=== PATIENT | female | born 1945 | race Caucasian/White ===

== ENCOUNTER 2021-08-06 09:33 | Inpatient (IN) ==
[2021-08-07] MEDS ORDERED: ZOFRAN INJ 4 MG VIAL IVP PRN (13:51)
--- NOTE | 2021-08-07 14:28 | RAD ---
Exam:HAND, RIGHTIndication: RIGHT HAND HEMATOMA/PAINComparison: [None available]Findings: [No acute fracture or malalignment of the right hand. No localizing soft tissue swelling. Degenerative changes of the MCP and interphalangeal joints of the right hand. Wrist joint alignment and joint spaces maintained.]IMPRESSIONNo acute radiographic abnormality within right hand.Degenerative changes of the MCP and interphalangeal joints of the right hand.Electronically signed by: CECILY HERNÁNDEZ (Aug 07, 2021 14:27:20)
--- NOTE | 2021-08-07 14:30 | RAD ---
HISTORYCOUGH, SHORTNESS OF BREATHSTUDYCHEST, 1 VIEWCOMPARISONNone availableFINDINGSThe trachea is midline. Heart size is at the upper limits of normal given AP technique. Bilateral increased interstitial opacities and peribronchial thickening most severely affecting the mid and lower lung zones. Either small bilateral pleural effusions or pleural scarring. No pneumothorax. No acute osseous abnormality.IMPRESSIONBilateral increased peribronchial thickening and interstitial opacities within the mid and lower lung zones is most consistent with multifocal infiltrates/pneumonia.Small bilateral pleural effusions and/or pleural scarring.Electronically signed by: CECILY HERNÁNDEZ (Aug 07, 2021 14:29:09)
[2021-08-07 15:12] LABS: ALANINE AMINOTRANSFERASE 28 Units/L (12-78); ALBUMIN 2.6 g/dL (3.4-5.0); ALKALINE PHOSPHATASE 62 Units/L (46-116); ASPARTATE AMINO TRANSFERASE 29 Units/L (15-37); BLOOD UREA NITROGEN 18 mg/dL (7-18); CALCIUM 7.9 mg/dL (8.5-10.1); CARBON DIOXIDE 22.7 mmol/L (21-32); COR NA(FOR HYPERGLY) 111 mmol/L (136-145); CREATININE 0.86 mg/dL (0.55-1.02); TOTAL PROTEIN 6.3 g/dL (6.4-8.2); eGFR NON BLACK RACES > 60 (>60)
[2021-08-07 15:13] LABS: CHLORIDE 80 mmol/L (98-107); SODIUM 109 mmol/L (136-145)
[2021-08-07 15:14] LABS: BASOPHILS % (AUTO) 0.1 % (0.2-1.0); EOSINOPHILS % (AUTO) 0.1 % (0.9-2.9); HEMATOCRIT 26.2 % (36.0-47.0); LYMPHOCYTES # (AUTO) 0.9 X10^3/uL (1.3-2.9); MEAN CORPUSCULAR HEMOGLOBIN 26.7 pg (27.0-34.0); MEAN CORPUSCULAR HGB CONC 34.1 g/dL (33.0-35.0); MEAN CORPUSCULAR VOLUME 78.3 fL (80.0-100.0); MEAN PLATELET VOLUME 7.8 fL (7.4-11.0); MONOCYTES # (AUTO) 0.8 x10^3/uL (0.3-0.8); MONOCYTES % (AUTO) 7.2 % (0.0-13.0); NEUTROPHILS # (AUTO) 9.8 x10^3/uL (2.2-4.8); NEUTROPHILS % (AUTO) 84.6 % (42.0-75.0); RED BLOOD COUNT 3.35 X10^6/uL (3.5-5.4); RED CELL DISTRIBUTION WIDTH 16.5 % (11.6-16.5); WHITE BLOOD COUNT 11.6 X10^3/uL (3.6-10.0)
[2021-08-07] MEDS: ZITHROMAX INJ 500 MG VIAL 500 MG in NS 250 ML IV 250 ML IV SCH (15:35)
[2021-08-07] MEDS ORDERED: POTASSIUM CHL 60 MEQ/NS 0.45% 500 ML IV PRN (15:37)
[2021-08-07] MEDS ORDERED: POTASSIUM CHLORIDE LIQ 20 MEQ UDC PO PRN (15:37)
[2021-08-07] MEDS ORDERED: K-DUR TAB 20 MEQ PO PRN (15:37)
[2021-08-07] MEDS ORDERED: MICRO K EXTEN CAP 10 MEQ PO PRN (15:37)
[2021-08-07] MEDS ORDERED: POTASSIUM CHL 40 MEQ/NS 0.45% 500 ML IV PRN (15:37)
[2021-08-07] MEDS ORDERED: KLOR-CON PO PRN (15:37)
[2021-08-07] MEDS ORDERED: K-RIDER 10 MEQ/NS 100 ML 40 MEQ/400 ML BAG IV ONE (16:19)
[2021-08-07] MEDS ORDERED: NS 250 ML IV 500 ML IV ONE (16:21)
[2021-08-07] MEDS ORDERED: MAGNESIUM SULFATE IV ONE (16:21)
[2021-08-07] MEDS: K-RIDER 10 MEQ/NS 100 ML 10 MEQ/100 ML BAG IV PRN ×6 (16:42→23:40)
[2021-08-07] MEDS: MAGNESIUM SULFATE 1 GRAM/100 mL PREMIX 1 G/100 ML BAG IV PRN ×6 (16:42→23:40)
[2021-08-07 16:43] LABS: APPEARANCE,URINE CLEAR (CLEAR); BILIRUBIN,URINE NEGATIVE (NEGATIVE); BLOOD/HEMOGLOBIN,URINE NEGATIVE (NEGATIVE); COLOR,URINE YELLOW (YELLOW); GLUCOSE, URINE 2+ (NEGATIVE); KETONES,URINE NEGATIVE (NEGATIVE); NITRITES,URINE NEGATIVE (NEGATIVE); PROTEIN,URINE 3+ (NEGATIVE)
[2021-08-07 16:44] LABS: BACTERIA,URINE 2+ /HPF (NEGATIVE); GRANULAR CASTS,URINE FEW /LPF (NEGATIVE); HYALINE CASTS, URINE FEW /LPF (NEGATIVE); LEUKOCYTE ESTERASE ,URINE NEGATIVE (NEGATIVE); RBC,URINE NONE SEEN /HPF (0-3); SQUAMOUS EPITHELIAL CELL,UR RARE /HPF (NEGATIVE); UROBILINOGEN,URINE NORMAL (NORMAL)
[2021-08-07] MEDS ORDERED: LASIX IVP SCH (17:00)
[2021-08-07 17:13] LABS: CHLORIDE 77 mmol/L (98-107); SODIUM 106 mmol/L (136-145)
[2021-08-07 17:14] LABS: ALANINE AMINOTRANSFERASE 27 Units/L (12-78); ALBUMIN 2.5 g/dL (3.4-5.0); ALKALINE PHOSPHATASE 64 Units/L (46-116); ASPARTATE AMINO TRANSFERASE 29 Units/L (15-37); BLOOD UREA NITROGEN 20 mg/dL (7-18); CALCIUM 7.7 mg/dL (8.5-10.1); CARBON DIOXIDE 23.9 mmol/L (21-32); COR CA(FOR HYPOALB) 8.9 mg/dL (8.5-10.1); COR NA(FOR HYPERGLY) 110 mmol/L (136-145); CREATINE KINASE 138 Units/L (26-192); CREATININE 1.04 mg/dL (0.55-1.02); TOTAL PROTEIN 6.1 g/dL (6.4-8.2); eGFR NON BLACK RACES 55 (>60)
[2021-08-07 17:15] LABS: CREATINE KINASE MB 4.2 ng/mL (0-4.0)
[2021-08-07 17:16] LABS: BASOPHILS % (AUTO) 0.2 % (0.2-1.0); HEMATOCRIT 25.1 % (36.0-47.0); HEMOGLOBIN 8.5 g/dL (12.0-16.0); LYMPHOCYTES % (AUTO) 7.6 % (21.0-51.0); MEAN CORPUSCULAR HEMOGLOBIN 26.7 pg (27.0-34.0); MEAN CORPUSCULAR HGB CONC 34.1 g/dL (33.0-35.0); MEAN CORPUSCULAR VOLUME 78.4 fL (80.0-100.0); MEAN PLATELET VOLUME 7.5 fL (7.4-11.0); MONOCYTES # (AUTO) 0.8 x10^3/uL (0.3-0.8); MONOCYTES % (AUTO) 5.9 % (0.0-13.0); NEUTROPHILS # (AUTO) 11.8 x10^3/uL (2.2-4.8); NEUTROPHILS % (AUTO) 86.3 % (42.0-75.0); RED CELL DISTRIBUTION WIDTH 16.4 % (11.6-16.5); WHITE BLOOD COUNT 13.6 X10^3/uL (3.6-10.0)
[2021-08-07 17:33] LABS: BASOPHILS % (AUTO) 0.1 % (0.2-1.0); EOSINOPHILS # (AUTO) 0.1 x10^3/uL (0.0-0.2); EOSINOPHILS % (AUTO) 0.5 % (0.9-2.9); HEMATOCRIT 26.6 % (36.0-47.0); HEMOGLOBIN 9.2 g/dL (12.0-16.0); LYMPHOCYTES # (AUTO) 1.3 X10^3/uL (1.3-2.9); LYMPHOCYTES % (AUTO) 12.7 % (21.0-51.0); MEAN CORPUSCULAR HEMOGLOBIN 26.6 pg (27.0-34.0); MEAN CORPUSCULAR HGB CONC 34.5 g/dL (33.0-35.0); MEAN CORPUSCULAR VOLUME 77.1 fL (80.0-100.0); MEAN PLATELET VOLUME 7.2 fL (7.4-11.0); MONOCYTES % (AUTO) 9.8 % (0.0-13.0); NEUTROPHILS # (AUTO) 7.8 x10^3/uL (2.2-4.8); NEUTROPHILS % (AUTO) 76.9 % (42.0-75.0); RED BLOOD COUNT 3.44 X10^6/uL (3.5-5.4); RED CELL DISTRIBUTION WIDTH 16.1 % (11.6-16.5); WHITE BLOOD COUNT 10.1 X10^3/uL (3.6-10.0)
[2021-08-07 17:48] LABS: ALANINE AMINOTRANSFERASE 24 Units/L (12-78); ALBUMIN 2.4 g/dL (3.4-5.0); ALKALINE PHOSPHATASE 59 Units/L (46-116); ASPARTATE AMINO TRANSFERASE 27 Units/L (15-37); BLOOD UREA NITROGEN 16 mg/dL (7-18); CHLORIDE 81 mmol/L (98-107); COR CA(FOR HYPOALB) 9.3 mg/dL (8.5-10.1); CREATININE 0.91 mg/dL (0.55-1.02); eGFR NON BLACK RACES > 60 (>60)
[2021-08-07 17:50] LABS: SODIUM 115 mmol/L (136-145)
[2021-08-07 19:12] LABS: ABG ALLEN TEST POS; ABG BASE EXCESS 0.3 mmol/L (-2.0-2.0); ABG HCO3 23.1 mmol/L (22-26)
[2021-08-07] MEDS ORDERED: MAGNESIUM SULFATE 1 GRAM/100 mL PREMIX 2 G/200 ML BAG IV ONE (20:32)
[2021-08-07] MEDS ORDERED: K-RIDER 10 MEQ/NS 100 ML 10 MEQ/100 ML BAG IV ONE (20:32)
--- NOTE | 2021-08-07 20:32 | DR.H&P ---
H&P History & Physical for Day of: H&P Date: 08/07/21 Chief Complaint Chief Complaint: Nausea and tested positive for Covid yesterday. Allergies Allergies Allergy/AdvReac Type Severity Reaction Status Date / Time No Known Drug Allergies Allergy Verified 08/08/21 02:42 History of Present Illness History of Present Illness: This is a 76-year-old white female who presented to the ED with complaints of nausea and testing positive for Covid over the last day or two. She is profoundly hyponatremic in the ED and is mildly confused. Her corrected Sodium is 110. She has been placed on fluid restriction. She is also hypoxic with a O2 sat of 88% on RA. She has been on Doxycycline and steroids and Symbicort as an outpatient. Past Medical History Past Medical History: COPD, Diabetes and Hypertension Past Surgical History Surgical History: Unknown Family History Family Medical History: Hypertension Social History Does patient currently use any type of tobacco product: No Have you used tobacco products in the last 12 months: No Type of Tobacco Use: None Does any household member use tobacco: No Alcohol Use: None Drug Use: None Labs Result Diagrams: 08/11/21 05:00 08/11/21 05:00 Labs: Laboratory WBC 10.1 X10^3/uL (3.6-10.0) H 08/07/21 17: RBC 3.44 X10^6/uL (3.5-5.4) L 08/07/21 17:24 Hgb 9.2 g/dL (12.0-16.0) L 08/07/21 17:24 Hct 26.6 % (36.0-47.0) L 08/07/21 17:24 MCV 77.1 fL (80.0-100.0) L 08/07/21 17:24 MCH 26.6 pg (27.0-34.0) L 08/07/21 17:24 MCHC 34.5 g/dL (33.0-35.0) 08/07/21 17:24 RDW 16.1 % (11.6-16.5) 08/07/21 17:24 Plt Count 276 X10^3/uL (150.0-450.0) 08/07/21 17:24 MPV 7.2 fL (7.4-11.0) L 08/07/21 17:24 Neut % (Auto) 76.9 % (42.0-75.0) H 08/07/21 17:24 Lymph % (Auto) 12.7 % (21.0-51.0) L 08/07/21 17:24 [place] % (Auto) 9.8 % (0.0-13.0) 08/07/21 17:24 Eos % (Auto) 0.5 % (0.9-2.9) L 08/07/21 17:24 Baso % (Auto) 0.1 % (0.2-1.0) L 08/07/21 17:24 Neut # (Auto) 7.8 x10^3/uL (2.2-4.8) H 08/07/21 17:24 Lymph # (Auto) 1.3 X10^3/uL (1.3-2.9) 08/07/21 17:24 [place] # (Auto) 1.0 x10^3/uL (0.3-0.8) H 08/07/21 17:24 Eos # (Auto) 0.1 x10^3/uL (0.0-0.2) 08/07/21 17:24 Baso # (Auto) 0.0 X10^3/uL (0.0-0.1) 08/07/21 17:24 Absolute Nucleated RBC 0.0 /100WBC 08/07/21 17:24 Sample Site Rr 08/06/21 23:02 ABG pH 7.480 (7.35-7.45) H 08/06/21 23:02 ABG pCO2 31.0 mmHg (35.0-45.0) L 08/06/21 23:02 ABG pO2 111.0 mmHg (80.0-100.0) H 08/06/21 23:02 ABG HCO3 23.1 mmol/L (22-26) 08/06/21 23:02 ABG O2 Saturation 99.0 % (90-100) 08/06/21 23:02 ABG Base Excess 0.3 mmol/L (-2.0-2.0) 08/06/21 23:02 Alcides Test Pos 08/06/21 23:02 A-a Gradient 0.0 mmHg 08/06/21 23:02 FiO2 21 08/06/21 23:02 Blood Gas Comments Lee well kh 08/06/21 23:02 Sodium 115 mmol/L (136-145) L* 08/07/21 17:24 Corrected Sodium TNP 08/07/21 17:24 Potassium 2.5 mmol/L (3.5-5.1) L* 08/07/21 17:24 Chloride 81 mmol/L (98-107) L 08/07/21 17:24 Carbon Dioxide 31.0 mmol/L (21-32) 08/07/21 17:24 BUN 16 mg/dL (7-18) 08/07/21 17:24 Creatinine 0.91 mg/dL (0.55-1.02) 08/07/21 17:24 Est GFR (MDRD) Af Amer > 60 (>60) 08/07/21 17:24 Est GFR (MDRD) Non-Af > 60 (>60) 08/07/21 17:24 Glucose 95 mg/dL (65-99) 08/07/21 17:24 Calcium 8.0 mg/dL (8.5-10.1) L 08/07/21 17:24 Corrected Calcium 9.3 mg/dL (8.5-10.1) 08/07/21 17:24 Magnesium 0.9 mg/dL (1.7-2.9) L 08/07/21 14:55 Total Bilirubin 0.30 mg/dL (0.2-1.0) 08/07/21 17:24 AST 27 Units/L (15-37) 08/07/21 17:24 ALT 24 Units/L (12-78) 08/07/21 17:24 Alkaline Phosphatase 59 Units/L (46-116) 08/07/21 17:24 Creatine Kinase 138 Units/L (26-192) 08/06/21 22:32 CK-MB (CK-2) 4.2 ng/mL (0-4.0) H* 08/06/21 22:32 CK/CKMB % Calc 3.0 % (<4) 08/06/21 22:32 Troponin I High Sens 9.7 ng/L (4.0-60.0) 08/06/21 22:32 Total Protein 6.0 g/dL (6.4-8.2) L 08/07/21 17:24 Albumin 2.4 g/dL (3.4-5.0) L 08/07/21 17:24 Globulin 3.6 g/dL (2.5-4.5) 08/07/21 17:24 Albumin/Globulin Ratio 0.7 Ratio (1.1-2.1) L 08/07/21 17:24 Specimen Type Catherized urine 08/07/21 04:00 Urine Color Yellow (YELLOW) 08/07/21 04:00 Urine Appearance Clear (CLEAR) 08/07/21 04:00 Urine pH 5.0 (5.0 - 8.0) 08/07/21 04:00 Ur Specific [place] 1.015 (1.000-1.030) 08/07/21 04:00 Urine Protein 3+ (NEGATIVE) 08/07/21 04:00 Urine Glucose (UA) 2+ (NEGATIVE) 08/07/21 04:00 Urine Ketones Negative (NEGATIVE) 08/07/21 04:00 Urine Occult Blood Negative (NEGATIVE) 08/07/21 04:00 Urine Nitrite Negative (NEGATIVE) 08/07/21 04:00 Urine Bilirubin Negative (NEGATIVE) 08/07/21 04:00 Urine Urobilinogen Normal (NORMAL) 08/07/21 04:00 Ur Leukocyte Esterase Negative (NEGATIVE) 08/07/21 04:00 Urine RBC None seen /HPF (0-3) 08/07/21 04:00 Urine WBC 0-2 /HPF (0-5) 08/07/21 04:00 Ur Squamous Epith Cells Rare /HPF (NEGATIVE) 08/07/21 04:00 Urine Bacteria 2+ /HPF (NEGATIVE) 08/07/21 04:00 Hyaline Casts Few /LPF (NEGATIVE) 08/07/21 04:00 Granular Casts Few /LPF (NEGATIVE) 08/07/21 04:00 Ur Culture Indicated? Yes/culture set up 08/07/21 04:00 SARS-CoV-2 (PCR) Positive (NEGATIVE) A 08/07/21 03:27 Influenza Type A (PCR) Negative (NEGATIVE) 08/07/21 03:27 Influenza Type B (PCR) Negative (NEGATIVE) 08/07/21 03:27 RSV (PCR) Negative (NEGATIVE) 08/07/21 03:27 Review of Systems Constitutional: Weakness and Malaise Eyes: No Symptoms Reported ENT: No Symptoms Reported Respiratory: Cough and Shortness of Breath Cardiovascular: No Symptoms Reported Genitourinary: Frequency Musculoskeletal: Other (Right hand 3rd digit with edema and bruising.) Skin: No Symptoms Reported Neurological: Weakness and Confusion Physical Exam Vital Signs: Temperature 97.7 F Pulse Rate [Apical] 84 Respiratory Rate 18 Blood Pressure [Right Arm] 168/62 O2 Sat by Pulse Oximetry 97 Oriented: Not Oriented Eyes: Normal Ear: Normal Nose: Normal Throat: Normal Respiratory: Diminished Throughout and Rhonchi Throughout Cardiovascular: Normal : Normal Auscultation: Bowel Sounds: Normal Palpation: Normal Tenderness: Normal Skin: Normal Musculoskeletal: Instability Psychiatric: Anxiety Mood Description: Anxious Affect: Quiet Speech Pattern: Unclear Assessment/Plan (1) COVID-19: Status: Acute Plan: TRENT Reddy's CXR in am. (2) Hyponatremia: Status: Acute Plan: Restrict fluids. (3) COPD (chronic obstructive pulmonary disease): Status: Acute Plan: Continue Symbicort abx. (4) Confusion: Status: Acute Plan: I suspect her confusion will resolve with the correction of her Na level. (5) HTN (hypertension): Status: Acute Plan: Monitor BP (6) DM2 (diabetes mellitus, type 2): Status: Acute Plan: Monitor BS. (7) Microcytic anemia: Status: Acute (8) Pneumonia due to COVID-19 virus: Status: Acute Plan: Covid protocol. Review H&P Reviewed: Yes Patient was examined?: Yes
[2021-08-07] MEDS: BROVANA IN SCH (21:00)
[2021-08-07] MEDS ORDERED: COREG TAB 25 MG ONE (21:00)
[2021-08-07] MEDS: PULMICORT NEB TX 0.5 MG NEB SCH (21:00)
[2021-08-07] MEDS ORDERED: BROVANA ONE (21:28)
[2021-08-07] MEDS ORDERED: PULMICORT NEB TX 0.5 MG NEB ONE (21:29)
[2021-08-07] MEDS ORDERED: MAGNESIUM SULFATE 1 GRAM/100 mL PREMIX 1 G/100 ML BAG IV ONE (22:43)
[2021-08-08 05:47] LABS: BASOPHILS % (AUTO) 0.1 % (0.2-1.0); EOSINOPHILS # (AUTO) 0.1 x10^3/uL (0.0-0.2); EOSINOPHILS % (AUTO) 1.7 % (0.9-2.9); HEMATOCRIT 24.9 % (36.0-47.0); HEMOGLOBIN 8.8 g/dL (12.0-16.0); LYMPHOCYTES # (AUTO) 1.5 X10^3/uL (1.3-2.9); LYMPHOCYTES % (AUTO) 17.5 % (21.0-51.0); MEAN CORPUSCULAR HEMOGLOBIN 27.1 pg (27.0-34.0); MEAN CORPUSCULAR HGB CONC 35.5 g/dL (33.0-35.0); MEAN CORPUSCULAR VOLUME 76.4 fL (80.0-100.0); MEAN PLATELET VOLUME 7.9 fL (7.4-11.0); MONOCYTES # (AUTO) 0.9 x10^3/uL (0.3-0.8); MONOCYTES % (AUTO) 11.3 % (0.0-13.0); NEUTROPHILS # (AUTO) 5.8 x10^3/uL (2.2-4.8); NEUTROPHILS % (AUTO) 69.4 % (42.0-75.0); RED BLOOD COUNT 3.26 X10^6/uL (3.5-5.4); RED CELL DISTRIBUTION WIDTH 16.3 % (11.6-16.5); WHITE BLOOD COUNT 8.3 X10^3/uL (3.6-10.0)
[2021-08-08 06:06] LABS: ALANINE AMINOTRANSFERASE 24 Units/L (12-78); ALBUMIN 2.2 g/dL (3.4-5.0); ALKALINE PHOSPHATASE 55 Units/L (46-116); ASPARTATE AMINO TRANSFERASE 28 Units/L (15-37); BLOOD UREA NITROGEN 12 mg/dL (7-18); CALCIUM 7.8 mg/dL (8.5-10.1); CARBON DIOXIDE 29.9 mmol/L (21-32); CHLORIDE 81 mmol/L (98-107); COR CA(FOR HYPOALB) 9.2 mg/dL (8.5-10.1); CREATININE 0.75 mg/dL (0.55-1.02); MAGNESIUM 2.5 mg/dL (1.7-2.9); TOTAL PROTEIN 5.6 g/dL (6.4-8.2); eGFR NON BLACK RACES > 60 (>60)
[2021-08-08 06:17] LABS: SODIUM 114 mmol/L (136-145)
[2021-08-08] MEDS ORDERED: ZOFRAN INJ 4 MG VIAL ONE (08:03)
[2021-08-08] MEDS ORDERED: BROVANA ONE (08:40)
[2021-08-08] MEDS ORDERED: PULMICORT NEB TX 0.5 MG NEB ONE (08:40)
[2021-08-08] MEDS: BROVANA IN SCH ×2 (10:00→19:30)
[2021-08-08] MEDS: PULMICORT NEB TX 0.5 MG NEB SCH ×2 (10:00→19:30)
[2021-08-08] MEDS ORDERED: K-DUR TAB 20 MEQ PO ONE (11:24)
[2021-08-08] MEDS ORDERED: NS 250 ML IV 250 ML IV ONE (11:24)
[2021-08-08] MEDS ORDERED: ZITHROMAX INJ 500 MG VIAL IV ONE (11:24)
[2021-08-08] MEDS: ZITHROMAX INJ 500 MG VIAL 500 MG in NS 250 ML IV 250 ML IV SCH (11:38)
[2021-08-08] MEDS: COREG TAB 25 MG PO SCH ×2 (11:39→20:58)
[2021-08-08] MEDS: NORVASC TAB 10 MG PO SCH (11:40)
[2021-08-08] MEDS: NEURONTIN CAP 100 MG PO SCH ×3 (11:40→21:00)
[2021-08-08] MEDS ORDERED: ZESTRIL TAB 20 MG ONE (11:44)
[2021-08-08] MEDS: ZESTRIL TAB 20 MG PO SCH (11:45)
[2021-08-08] MEDS ORDERED: NEURONTIN CAP 100 MG ONE (20:41)
[2021-08-09 05:14] LABS: BASOPHILS % (AUTO) 0.3 % (0.2-1.0); EOSINOPHILS # (AUTO) 0.2 x10^3/uL (0.0-0.2); EOSINOPHILS % (AUTO) 2.7 % (0.9-2.9); HEMATOCRIT 26.4 % (36.0-47.0); HEMOGLOBIN 9.2 g/dL (12.0-16.0); LYMPHOCYTES # (AUTO) 1.3 X10^3/uL (1.3-2.9); LYMPHOCYTES % (AUTO) 17.2 % (21.0-51.0); MEAN CORPUSCULAR HEMOGLOBIN 27.2 pg (27.0-34.0); MEAN CORPUSCULAR HGB CONC 34.8 g/dL (33.0-35.0); MEAN CORPUSCULAR VOLUME 78.2 fL (80.0-100.0); MEAN PLATELET VOLUME 7.7 fL (7.4-11.0); MONOCYTES # (AUTO) 0.8 x10^3/uL (0.3-0.8); MONOCYTES % (AUTO) 11.1 % (0.0-13.0); NEUTROPHILS # (AUTO) 5.1 x10^3/uL (2.2-4.8); NEUTROPHILS % (AUTO) 68.7 % (42.0-75.0); RED BLOOD COUNT 3.37 X10^6/uL (3.5-5.4); RED CELL DISTRIBUTION WIDTH 16.5 % (11.6-16.5); WHITE BLOOD COUNT 7.4 X10^3/uL (3.6-10.0)
[2021-08-09] MEDS ORDERED: NEURONTIN CAP 100 MG ONE ×2 (05:18→14:02)
[2021-08-09 05:20] LABS: BLOOD UREA NITROGEN 7 mg/dL (7-18); CALCIUM 8.5 mg/dL (8.5-10.1); CARBON DIOXIDE 32.3 mmol/L (21-32); CHLORIDE 90 mmol/L (98-107); COR NA(FOR HYPERGLY) 126 mmol/L (136-145); CREATININE 0.77 mg/dL (0.55-1.02); SODIUM 126 mmol/L (136-145); eGFR NON BLACK RACES > 60 (>60)
[2021-08-09] MEDS: NEURONTIN CAP 100 MG PO SCH ×3 (05:20→21:03)
[2021-08-09 05:34] LABS: ALANINE AMINOTRANSFERASE 23 Units/L (12-78); ALBUMIN 2.3 g/dL (3.4-5.0); ALKALINE PHOSPHATASE 60 Units/L (46-116); ASPARTATE AMINO TRANSFERASE 25 Units/L (15-37); COR CA(FOR HYPOALB) 9.9 mg/dL (8.5-10.1); TOTAL PROTEIN 5.8 g/dL (6.4-8.2)
[2021-08-09] MEDS: BROVANA IN SCH ×2 (08:39→22:59)
[2021-08-09] MEDS: PULMICORT NEB TX 0.5 MG NEB SCH ×2 (08:39→22:59)
[2021-08-09] MEDS ORDERED: ZITHROMAX INJ 500 MG VIAL IV ONE (10:26)
[2021-08-09] MEDS ORDERED: NS 250 ML IV 250 ML IV ONE (10:26)
[2021-08-09] MEDS ORDERED: HYDROCHLOROTHIAZIDE 25 MG TAB ONE (10:26)
[2021-08-09] MEDS: COREG TAB 25 MG PO SCH ×2 (12:21→20:56)
[2021-08-09] MEDS: HYDROCHLOROTHIAZIDE 25 MG TAB PO SCH (12:21)
[2021-08-09] MEDS: NORVASC TAB 10 MG PO SCH (12:21)
[2021-08-09] MEDS ORDERED: LOVENOX INJ 30 MG SYR SC ONE (12:23)
[2021-08-09] MEDS: LOVENOX INJ 30 MG SYR SC SCH ×2 (12:24→20:56)
[2021-08-09] MEDS: ZESTRIL TAB 20 MG PO SCH (12:25)
[2021-08-09] MEDS: ZITHROMAX INJ 500 MG VIAL 500 MG in NS 250 ML IV 250 ML IV SCH (12:25)
[2021-08-09] MEDS ORDERED: NovoLIN R (or HumuLIN R) SUBCUT PRN (21:02)
[2021-08-10 05:38] LABS: BASOPHILS % (AUTO) 0.2 % (0.2-1.0); EOSINOPHILS # (AUTO) 0.3 x10^3/uL (0.0-0.2); EOSINOPHILS % (AUTO) 3.6 % (0.9-2.9); HEMATOCRIT 25.9 % (36.0-47.0); HEMOGLOBIN 8.9 g/dL (12.0-16.0); LYMPHOCYTES # (AUTO) 1.5 X10^3/uL (1.3-2.9); LYMPHOCYTES % (AUTO) 17.2 % (21.0-51.0); MEAN CORPUSCULAR HEMOGLOBIN 27.1 pg (27.0-34.0); MEAN CORPUSCULAR HGB CONC 34.4 g/dL (33.0-35.0); MEAN CORPUSCULAR VOLUME 78.8 fL (80.0-100.0); MEAN PLATELET VOLUME 7.5 fL (7.4-11.0); MONOCYTES % (AUTO) 11.1 % (0.0-13.0); NEUTROPHILS # (AUTO) 6.1 x10^3/uL (2.2-4.8); NEUTROPHILS % (AUTO) 67.9 % (42.0-75.0); RED BLOOD COUNT 3.28 X10^6/uL (3.5-5.4); RED CELL DISTRIBUTION WIDTH 16.4 % (11.6-16.5)
[2021-08-10 05:41] LABS: BLOOD UREA NITROGEN 7 mg/dL (7-18); CALCIUM 8.7 mg/dL (8.5-10.1); CARBON DIOXIDE 29.4 mmol/L (21-32); CHLORIDE 93 mmol/L (98-107); COR NA(FOR HYPERGLY) 130 mmol/L (136-145); CREATININE 0.83 mg/dL (0.55-1.02); SODIUM 129 mmol/L (136-145); eGFR NON BLACK RACES > 60 (>60)
[2021-08-10] MEDS: NEURONTIN CAP 100 MG PO SCH ×3 (05:45→21:00)
[2021-08-10 06:11] LABS: ALANINE AMINOTRANSFERASE 23 Units/L (12-78); ALBUMIN 2.4 g/dL (3.4-5.0); ALKALINE PHOSPHATASE 61 Units/L (46-116); ASPARTATE AMINO TRANSFERASE 21 Units/L (15-37)
[2021-08-10] MEDS ORDERED: ZESTRIL TAB 20 MG ONE (07:44)
[2021-08-10] MEDS: PULMICORT NEB TX 0.5 MG NEB SCH ×2 (08:40→21:00)
[2021-08-10] MEDS: BROVANA IN SCH ×2 (08:40→21:00)
[2021-08-10] MEDS: HYDROCHLOROTHIAZIDE 25 MG TAB PO SCH (08:46)
[2021-08-10] MEDS: ZITHROMAX INJ 500 MG VIAL 500 MG in NS 250 ML IV 250 ML IV SCH (08:46)
[2021-08-10] MEDS: COREG TAB 25 MG PO SCH ×2 (08:46→20:42)
[2021-08-10] MEDS: LOVENOX INJ 30 MG SYR SC SCH ×2 (08:47→20:42)
[2021-08-10] MEDS: NORVASC TAB 10 MG PO SCH (08:47)
[2021-08-10] MEDS: ZESTRIL TAB 20 MG PO SCH (08:47)
[2021-08-10] MEDS ORDERED: SNACK - Diabetic Appropriate PO SCH (20:00)
[2021-08-11] MEDS: NEURONTIN CAP 100 MG PO SCH (05:41)
[2021-08-11 06:24] LABS: BASOPHILS # (AUTO) 0.1 X10^3/uL (0.0-0.1); BASOPHILS % (AUTO) 0.6 % (0.2-1.0); EOSINOPHILS # (AUTO) 0.5 x10^3/uL (0.0-0.2); EOSINOPHILS % (AUTO) 5.3 % (0.9-2.9); HEMATOCRIT 25.3 % (36.0-47.0); HEMOGLOBIN 8.8 g/dL (12.0-16.0); LYMPHOCYTES # (AUTO) 1.4 X10^3/uL (1.3-2.9); LYMPHOCYTES % (AUTO) 15.3 % (21.0-51.0); MEAN CORPUSCULAR HEMOGLOBIN 27.6 pg (27.0-34.0); MEAN CORPUSCULAR HGB CONC 34.6 g/dL (33.0-35.0); MEAN CORPUSCULAR VOLUME 79.8 fL (80.0-100.0); MEAN PLATELET VOLUME 7.7 fL (7.4-11.0); MONOCYTES # (AUTO) 0.9 x10^3/uL (0.3-0.8); MONOCYTES % (AUTO) 10.5 % (0.0-13.0); NEUTROPHILS # (AUTO) 6.1 x10^3/uL (2.2-4.8); NEUTROPHILS % (AUTO) 68.3 % (42.0-75.0); RED BLOOD COUNT 3.18 X10^6/uL (3.5-5.4); RED CELL DISTRIBUTION WIDTH 16.1 % (11.6-16.5)
[2021-08-11 06:55] LABS: ALANINE AMINOTRANSFERASE 22 Units/L (12-78); ALBUMIN 2.2 g/dL (3.4-5.0); ALKALINE PHOSPHATASE 56 Units/L (46-116); ASPARTATE AMINO TRANSFERASE 19 Units/L (15-37); BLOOD UREA NITROGEN 5 mg/dL (7-18); CALCIUM 8.4 mg/dL (8.5-10.1); CARBON DIOXIDE 27.6 mmol/L (21-32); CHLORIDE 94 mmol/L (98-107); COR CA(FOR HYPOALB) 9.8 mg/dL (8.5-10.1); COR NA(FOR HYPERGLY) 132 mmol/L (136-145); CREATININE 0.76 mg/dL (0.55-1.02); SODIUM 130 mmol/L (136-145); TOTAL PROTEIN 5.9 g/dL (6.4-8.2); eGFR NON BLACK RACES > 60 (>60)
[2021-08-11] MEDS ORDERED: ZESTRIL TAB 20 MG ONE (08:07)
[2021-08-11] MEDS: COREG TAB 25 MG PO SCH (08:40)
[2021-08-11] MEDS: HYDROCHLOROTHIAZIDE 25 MG TAB PO SCH (08:40)
[2021-08-11] MEDS: ZESTRIL TAB 20 MG PO SCH (08:41)
[2021-08-11] MEDS: LOVENOX INJ 30 MG SYR SC SCH (08:41)
[2021-08-11] MEDS: NORVASC TAB 10 MG PO SCH (08:41)
[2021-08-11] MEDS: PULMICORT NEB TX 0.5 MG NEB SCH (08:55)
[2021-08-11] MEDS: BROVANA IN SCH (08:55)
[2021-08-11] MEDS ORDERED: ZITHROMAX TAB 250 MG PO ONE ×2 (11:03→11:22)
[2021-08-11 12:47] VITALS: BP 171/72
--- NOTE | 2021-08-29 16:07 | PCM.PROG ---
Progress Note Progress Note for Day of Date of Exam: 08/08/21 Subjective Subjective: Feels a little better. Na is up to 114. Patient's has been giving her lots of water to drink. I discussed with him not to do that and explained that's the reason her Sodium level is so low. He says he understands. O2 sats are in the upper 90's now on 2 L NC. Hb is down to Past Medical Family Social History Past Med/Fam/Surg Hx: No changes since H&P Allergies: Allergies No Known Drug Allergies Allergy (Verified 08/08/21 02:42) Review of Systems ROS: No change since H&P Vital Signs and I&O's Vital Signs: Temperature 99.5 F Pulse Rate [Apical] 67 Pulse Rate 82 Respiratory Rate 20 Blood Pressure [Right Arm] 126/53 Blood Pressure 171/72 O2 Sat by Pulse Oximetry 100 Physical Exam Oriented: Not Oriented Eyes: Normal Ear: Normal Nose: Normal Throat: Normal Cardiovascular: Normal : Normal Auscultation: Bowel Sounds: Normal Tenderness: Normal Skin: Normal Musculoskeletal: Instability Psychiatric: Anxiety Mood Description: Anxious Affect: Quiet Speech Pattern: Clear and Appropriate Laboratory and Diagnostics Result Diagrams: 08/11/21 05:00 08/11/21 05:00 Labs: 08/07/21 04:00 Urine,[place] Urine Culture - Final Laboratory WBC 9.0 X10^3/uL (3.6-10.0) 08/11/21 05:00 RBC 3.18 X10^6/uL (3.5-5.4) L 08/11/21 05:00 Hgb 8.8 g/dL (12.0-16.0) L 08/11/21 05:00 Hct 25.3 % (36.0-47.0) L 08/11/21 05:00 MCV 79.8 fL (80.0-100.0) L 08/11/21 05:00 MCH 27.6 pg (27.0-34.0) 08/11/21 05:00 MCHC 34.6 g/dL (33.0-35.0) 08/11/21 05:00 RDW 16.1 % (11.6-16.5) 08/11/21 05:00 Plt Count 296 X10^3/uL (150.0-450.0) 08/11/21 05:00 MPV 7.7 fL (7.4-11.0) 08/11/21 05:00 Neut % (Auto) 68.3 % (42.0-75.0) 08/11/21 05:00 Lymph % (Auto) 15.3 % (21.0-51.0) L 08/11/21 05:00 [place] % (Auto) 10.5 % (0.0-13.0) 08/11/21 05:00 Eos % (Auto) 5.3 % (0.9-2.9) H 08/11/21 05:00 Baso % (Auto) 0.6 % (0.2-1.0) 08/11/21 05:00 Neut # (Auto) 6.1 x10^3/uL (2.2-4.8) H 08/11/21 05:00 Lymph # (Auto) 1.4 X10^3/uL (1.3-2.9) 08/11/21 05:00 [place] # (Auto) 0.9 x10^3/uL (0.3-0.8) H 08/11/21 05:00 Eos # (Auto) 0.5 x10^3/uL (0.0-0.2) H 08/11/21 05:00 Baso # (Auto) 0.1 X10^3/uL (0.0-0.1) 08/11/21 05:00 Absolute Nucleated RBC 0.0 /100WBC 08/11/21 05:00 Sample Site Rr 08/06/21 23:02 ABG pH 7.480 (7.35-7.45) H 08/06/21 23:02 ABG pCO2 31.0 mmHg (35.0-45.0) L 08/06/21 23:02 ABG pO2 111.0 mmHg (80.0-100.0) H 08/06/21 23:02 ABG HCO3 23.1 mmol/L (22-26) 08/06/21 23:02 ABG O2 Saturation 99.0 % (90-100) 08/06/21 23:02 ABG Base Excess 0.3 mmol/L (-2.0-2.0) 08/06/21 23:02 Alcides Test Pos 08/06/21 23:02 A-a Gradient 0.0 mmHg 08/06/21 23:02 FiO2 21 08/06/21 23:02 Blood Gas Comments Lee well kh 08/06/21 23:02 Sodium 130 mmol/L (136-145) L 08/11/21 05:00 Corrected Sodium 132 mmol/L (136-145) L 08/11/21 05:00 Potassium 3.5 mmol/L (3.5-5.1) 08/11/21 05:00 Chloride 94 mmol/L (98-107) L 08/11/21 05:00 Carbon Dioxide 27.6 mmol/L (21-32) 08/11/21 05:00 BUN 5 mg/dL (7-18) L 08/11/21 05:00 Creatinine 0.76 mg/dL (0.55-1.02) 08/11/21 05:00 Est GFR (MDRD) Af Amer > 60 (>60) 08/11/21 05:00 Est GFR (MDRD) Non-Af > 60 (>60) 08/11/21 05:00 Glucose 176 mg/dL (65-99) H 08/11/21 05:00 POC Glucose (mg/dL) 299 mg/dL (65-99) H 08/11/21 11:58 Calcium 8.4 mg/dL (8.5-10.1) L 08/11/21 05:00 Corrected Calcium 9.8 mg/dL (8.5-10.1) 08/11/21 05:00 Magnesium 2.5 mg/dL (1.7-2.9) 08/08/21 04:09 Total Bilirubin 0.40 mg/dL (0.2-1.0) 08/11/21 05:00 AST 19 Units/L (15-37) 08/11/21 05:00 ALT 22 Units/L (12-78) 08/11/21 05:00 Alkaline Phosphatase 56 Units/L (46-116) 08/11/21 05:00 Creatine Kinase 138 Units/L (26-192) 08/06/21 22:32 CK-MB (CK-2) 4.2 ng/mL (0-4.0) H* 08/06/21 22:32 CK/CKMB % Calc 3.0 % (<4) 08/06/21 22: Troponin I High Sens 9.7 ng/L (4.0-60.0) 08/06/21 22:32 Total Protein 5.9 g/dL (6.4-8.2) L 08/11/21 05:00 Albumin 2.2 g/dL (3.4-5.0) L 08/11/21 05:00 Globulin 3.7 g/dL (2.5-4.5) 08/11/21 05:00 Albumin/Globulin Ratio 0.6 Ratio (1.1-2.1) L 08/11/21 05:00 Specimen Type Catherized urine 08/07/21 04:00 Urine Color Yellow (YELLOW) 08/07/21 04:00 Urine Appearance Clear (CLEAR) 08/07/21 04:00 Urine pH 5.0 (5.0 - 8.0) 08/07/21 04:00 Ur Specific [place] 1.015 (1.000-1.030) 08/07/21 04:00 Urine Protein 3+ (NEGATIVE) 08/07/21 04:00 Urine Glucose (UA) 2+ (NEGATIVE) 08/07/21 04:00 Urine Ketones Negative (NEGATIVE) 08/07/21 04:00 Urine Occult Blood Negative (NEGATIVE) 08/07/21 04:00 Urine Nitrite Negative (NEGATIVE) 08/07/21 04:00 Urine Bilirubin Negative (NEGATIVE) 08/07/21 04:00 Urine Urobilinogen Normal (NORMAL) 08/07/21 04:00 Ur Leukocyte Esterase Negative (NEGATIVE) 08/07/21 04:00 Urine RBC None seen /HPF (0-3) 08/07/21 04:00 Urine WBC 0-2 /HPF (0-5) 08/07/21 04:00 Ur Squamous Epith Cells Rare /HPF (NEGATIVE) 08/07/21 04:00 Urine Bacteria 2+ /HPF (NEGATIVE) 08/07/21 04:00 Hyaline Casts Few /LPF (NEGATIVE) 08/07/21 04:00 Granular Casts Few /LPF (NEGATIVE) 08/07/21 04:00 Ur Culture Indicated? Yes/culture set up 08/07/21 04:00 SARS-CoV-2 (PCR) Positive (NEGATIVE) A 08/07/21 03:27 Influenza Type A (PCR) Negative (NEGATIVE) 08/07/21 03:27 Influenza Type B (PCR) Negative (NEGATIVE) 08/07/21 03:27 RSV (PCR) Negative (NEGATIVE) 08/07/21 03:27 Plan (1) COVID-19: Status: Acute Plan: ZithromaTRENT herrera's CXR in am. (2) Hyponatremia: Status: Acute Narrative Support Text: improved. Plan: Restrict fluids. Instructed to stop giving her water. (3) COPD (chronic obstructive pulmonary disease): Status: Acute Plan: Continue Symbicort abx. (4) Confusion: Status: Acute Narrative Support Text: Improved since yesterday. Plan: I suspect her confusion will resolve with the correction of her Na level. (5) HTN (hypertension): Status: Acute Plan: Monitor BP (6) DM2 (diabetes mellitus, type 2): Status: Acute Narrative Support Text: Stable. Plan: Monitor BS. (7) Microcytic anemia: Status: Acute Narrative Support Text: decreased Hb. Plan: Moitor daily Hb's. (8) Pneumonia due to COVID-19 virus: Status: Acute Narrative Support Text: O2 sats improved. Plan: Covid protocol. (9) Hypokalemia: Status: Acute Plan: Potassium replacement protocol.
--- NOTE | 2021-08-29 16:22 | PCM.PROG ---
Progress Note Progress Note for Day of Date of Exam: 08/09/21 Subjective Subjective: Feels a little better. Na is up to 126. O2 sats are in the upper 90's now on 2 L NC. Hb is up to 9.2. Will plan on discharging home in 1 -2 days. Past Medical Family Social History Past Med/Fam/Surg Hx: No changes since H&P Allergies: Allergies No Known Drug Allergies Allergy (Verified 08/08/21 02:42) Review of Systems ROS: No change since H&P Vital Signs and I&O's Vital Signs: Temperature 99.5 F Pulse Rate [Apical] 67 Pulse Rate 82 Respiratory Rate 20 Blood Pressure [Right Arm] 126/53 Blood Pressure 171/72 O2 Sat by Pulse Oximetry 100 Physical Exam Oriented: Not Oriented Eyes: Normal Ear: Normal Nose: Normal Throat: Normal Respiratory: Diminished and Rhonchi Cardiovascular: Normal : Normal Auscultation: Bowel Sounds: Normal Tenderness: Normal Skin: Normal Psychiatric: Normal Mood Description: Calm Affect: Normal Speech Pattern: Clear and Appropriate Laboratory and Diagnostics Result Diagrams: 08/11/21 05:00 08/11/21 05:00 Labs: 08/07/21 04:00 Urine,[place] Urine Culture - Final Laboratory WBC 9.0 X10^3/uL (3.6-10.0) 08/11/21 05:00 RBC 3.18 X10^6/uL (3.5-5.4) L 08/11/21 05:00 Hgb 8.8 g/dL (12.0-16.0) L 08/11/21 05:00 Hct 25.3 % (36.0-47.0) L 08/11/21 05:00 MCV 79.8 fL (80.0-100.0) L 08/11/21 05:00 MCH 27.6 pg (27.0-34.0) 08/11/21 05:00 MCHC 34.6 g/dL (33.0-35.0) 08/11/21 05:00 RDW 16.1 % (11.6-16.5) 08/11/21 05:00 Plt Count 296 X10^3/uL (150.0-450.0) 08/11/21 05:00 MPV 7.7 fL (7.4-11.0) 08/11/21 05:00 Neut % (Auto) 68.3 % (42.0-75.0) 08/11/21 05:00 Lymph % (Auto) 15.3 % (21.0-51.0) L 08/11/21 05:00 [place] % (Auto) 10.5 % (0.0-13.0) 08/11/21 05:00 Eos % (Auto) 5.3 % (0.9-2.9) H 08/11/21 05:00 Baso % (Auto) 0.6 % (0.2-1.0) 08/11/21 05:00 Neut # (Auto) 6.1 x10^3/uL (2.2-4.8) H 08/11/21 05:00 Lymph # (Auto) 1.4 X10^3/uL (1.3-2.9) 08/11/21 05:00 [place] # (Auto) 0.9 x10^3/uL (0.3-0.8) H 08/11/21 05:00 Eos # (Auto) 0.5 x10^3/uL (0.0-0.2) H 08/11/21 05:00 Baso # (Auto) 0.1 X10^3/uL (0.0-0.1) 08/11/21 05:00 Absolute Nucleated RBC 0.0 /100WBC 08/11/21 05:00 Sample Site Rr 08/06/21 23:02 ABG pH 7.480 (7.35-7.45) H 08/06/21 23:02 ABG pCO2 31.0 mmHg (35.0-45.0) L 08/06/21 23:02 ABG pO2 111.0 mmHg (80.0-100.0) H 08/06/21 23:02 ABG HCO3 23.1 mmol/L (22-26) 08/06/21 23:02 ABG O2 Saturation 99.0 % (90-100) 08/06/21 23:02 ABG Base Excess 0.3 mmol/L (-2.0-2.0) 08/06/21 23:02 Alcides Test Pos 08/06/21 23:02 A-a Gradient 0.0 mmHg 08/06/21 23:02 FiO2 21 08/06/21 23:02 Blood Gas Comments Lee well kh 08/06/21 23:02 Sodium 130 mmol/L (136-145) L 08/11/21 05:00 Corrected Sodium 132 mmol/L (136-145) L 08/11/21 05:00 Potassium 3.5 mmol/L (3.5-5.1) 08/11/21 05:00 Chloride 94 mmol/L (98-107) L 08/11/21 05:00 Carbon Dioxide 27.6 mmol/L (21-32) 08/11/21 05:00 BUN 5 mg/dL (7-18) L 08/11/21 05:00 Creatinine 0.76 mg/dL (0.55-1.02) 08/11/21 05:00 Est GFR (MDRD) Af Amer > 60 (>60) 08/11/21 05:00 Est GFR (MDRD) Non-Af > 60 (>60) 08/11/21 05:00 Glucose 176 mg/dL (65-99) H 08/11/21 05:00 POC Glucose (mg/dL) 299 mg/dL (65-99) H 08/11/21 11:58 Calcium 8.4 mg/dL (8.5-10.1) L 08/11/21 05:00 Corrected Calcium 9.8 mg/dL (8.5-10.1) 08/11/21 05:00 Magnesium 2.5 mg/dL (1.7-2.9) 08/08/21 04:09 Total Bilirubin 0.40 mg/dL (0.2-1.0) 08/11/21 05:00 AST 19 Units/L (15-37) 08/11/21 05:00 ALT 22 Units/L (12-78) 08/11/21 05:00 Alkaline Phosphatase 56 Units/L (46-116) 08/11/21 05:00 Creatine Kinase 138 Units/L (26-192) 08/06/21 22:32 CK-MB (CK-2) 4.2 ng/mL (0-4.0) H* 08/06/21 22:32 CK/CKMB % Calc 3.0 % (<4) 08/06/21 22:32 Troponin I High Sens 9.7 ng/L (4.0-60.0) 08/06/21 22:32 Total Protein 5.9 g/dL (6.4-8.2) L 08/11/21 05:00 Albumin 2.2 g/dL (3.4-5.0) L 08/11/21 05:00 Globulin 3.7 g/dL (2.5-4.5) 08/11/21 05:00 Albumin/Globulin Ratio 0.6 Ratio (1.1-2.1) L 08/11/21 05:00 Specimen Type Catherized urine 08/07/21 04:00 Urine Color Yellow (YELLOW) 08/07/21 04:00 Urine Appearance Clear (CLEAR) 08/07/21 04:00 Urine pH 5.0 (5.0 - 8.0) 08/07/21 04:00 Ur Specific [place] 1.015 (1.000-1.030) 08/07/21 04:00 Urine Protein 3+ (NEGATIVE) 08/07/21 04:00 Urine Glucose (UA) 2+ (NEGATIVE) 08/07/21 04:00 Urine Ketones Negative (NEGATIVE) 08/07/21 04:00 Urine Occult Blood Negative (NEGATIVE) 08/07/21 04:00 Urine Nitrite Negative (NEGATIVE) 08/07/21 04:00 Urine Bilirubin Negative (NEGATIVE) 08/07/21 04:00 Urine Urobilinogen Normal (NORMAL) 08/07/21 04:00 Ur Leukocyte Esterase Negative (NEGATIVE) 08/07/21 04:00 Urine RBC None seen /HPF (0-3) 08/07/21 04:00 Urine WBC 0-2 /HPF (0-5) 08/07/21 04:00 Ur Squamous Epith Cells Rare /HPF (NEGATIVE) 08/07/21 04:00 Urine Bacteria 2+ /HPF (NEGATIVE) 08/07/21 04:00 Hyaline Casts Few /LPF (NEGATIVE) 08/07/21 04:00 Granular Casts Few /LPF (NEGATIVE) 08/07/21 04:00 Ur Culture Indicated? Yes/culture set up 08/07/21 04:00 SARS-CoV-2 (PCR) Positive (NEGATIVE) A 08/07/21 03:27 Influenza Type A (PCR) Negative (NEGATIVE) 08/07/21 03:27 Influenza Type B (PCR) Negative (NEGATIVE) 08/07/21 03:27 RSV (PCR) Negative (NEGATIVE) 08/07/21 03:27 Plan (1) COVID-19: Status: Acute Plan: RamirothrTRENT aviles's CXR in am. (2) Hyponatremia: Status: Acute Narrative Support Text: Improving. Plan: Restrict fluids. Instructed to stop giving her water. (3) COPD (chronic obstructive pulmonary disease): Status: Acute Plan: Continue Symbicort abx. (4) Confusion: Status: Acute Narrative Support Text: Much improved since yesterday. Plan: I suspect her confusion will resolve with the correction of her Na level. (5) HTN (hypertension): Status: Acute Plan: Monitor BP (6) DM2 (diabetes mellitus, type 2): Status: Acute Plan: Monitor BS. (7) Microcytic anemia: Status: Acute Narrative Support Text: Hb is up to 9.2 this am. Plan: Moitor daily Hb's. (8) Pneumonia due to COVID-19 virus: Status: Acute Narrative Support Text: Improving since admission. Plan: Covid protocol. (9) Hypokalemia: Status: Acute Plan: Potassium replacement protocol.
--- NOTE | 2021-08-29 16:29 | PCM.PROG ---
Progress Note Progress Note for Day of Date of Exam: 08/10/21 Subjective Subjective: Feels a lot better. Na is up to 129. O2 sats are in the upper 90's now on 2 L NC. Hb is 8.9 Will plan on discharging home when sodium is nearly normalized and or confusion has completely resolved. Respiratory status is much better clinically. No reports of dyspnea. Past Medical Family Social History Past Med/Fam/Surg Hx: No changes since H&P Allergies: Allergies No Known Drug Allergies Allergy (Verified 08/08/21 02:42) Review of Systems ROS: No change since H&P Vital Signs and I&O's Vital Signs: Temperature 99.5 F Pulse Rate [Apical] 67 Pulse Rate 82 Respiratory Rate 20 Blood Pressure [Right Arm] 126/53 Blood Pressure 171/72 O2 Sat by Pulse Oximetry 100 Physical Exam Oriented: Normal Eyes: Normal Ear: Normal Nose: Normal Throat: Normal Respiratory: Rhonchi Cardiovascular: Normal : Normal Auscultation: Bowel Sounds: Normal Tenderness: Normal Skin: Normal Musculoskeletal: Instability Psychiatric: Normal Mood Description: Calm Affect: Normal Speech Pattern: Clear and Appropriate Laboratory and Diagnostics Result Diagrams: 08/11/21 05:00 08/11/21 05:00 Labs: 08/07/21 04:00 Urine,[place] Urine Culture - Final Laboratory WBC 9.0 X10^3/uL (3.6-10.0) 08/11/21 05:00 RBC 3.18 X10^6/uL (3.5-5.4) L 08/11/21 05:00 Hgb 8.8 g/dL (12.0-16.0) L 08/11/21 05:00 Hct 25.3 % (36.0-47.0) L 08/11/21 05:00 MCV 79.8 fL (80.0-100.0) L 08/11/21 05:00 MCH 27.6 pg (27.0-34.0) 08/11/21 05:00 MCHC 34.6 g/dL (33.0-35.0) 08/11/21 05:00 RDW 16.1 % (11.6-16.5) 08/11/21 05:00 Plt Count 296 X10^3/uL (150.0-450.0) 08/11/21 05:00 MPV 7.7 fL (7.4-11.0) 08/11/21 05:00 Neut % (Auto) 68.3 % (42.0-75.0) 08/11/21 05:00 Lymph % (Auto) 15.3 % (21.0-51.0) L 08/11/21 05:00 [place] % (Auto) 10.5 % (0.0-13.0) 08/11/21 05:00 Eos % (Auto) 5.3 % (0.9-2.9) H 08/11/21 05:00 Baso % (Auto) 0.6 % (0.2-1.0) 08/11/21 05:00 Neut # (Auto) 6.1 x10^3/uL (2.2-4.8) H 08/11/21 05:00 Lymph # (Auto) 1.4 X10^3/uL (1.3-2.9) 08/11/21 05:00 [place] # (Auto) 0.9 x10^3/uL (0.3-0.8) H 08/11/21 05:00 Eos # (Auto) 0.5 x10^3/uL (0.0-0.2) H 08/11/21 05:00 Baso # (Auto) 0.1 X10^3/uL (0.0-0.1) 08/11/21 05:00 Absolute Nucleated RBC 0.0 /100WBC 08/11/21 05:00 Sample Site Rr 08/06/21 23:02 ABG pH 7.480 (7.35-7.45) H 08/06/21 23:02 ABG pCO2 31.0 mmHg (35.0-45.0) L 08/06/21 23:02 ABG pO2 111.0 mmHg (80.0-100.0) H 08/06/21 23:02 ABG HCO3 23.1 mmol/L (22-26) 08/06/21 23:02 ABG O2 Saturation 99.0 % (90-100) 08/06/21 23:02 ABG Base Excess 0.3 mmol/L (-2.0-2.0) 08/06/21 23:02 Alcides Test Pos 08/06/21 23:02 A-a Gradient 0.0 mmHg 08/06/21 23:02 FiO2 21 08/06/21 23:02 Blood Gas Comments Lee well kh 08/06/21 23:02 Sodium 130 mmol/L (136-145) L 08/11/21 05:00 Corrected Sodium 132 mmol/L (136-145) L 08/11/21 05:00 Potassium 3.5 mmol/L (3.5-5.1) 08/11/21 05:00 Chloride 94 mmol/L (98-107) L 08/11/21 05:00 Carbon Dioxide 27.6 mmol/L (21-32) 08/11/21 05:00 BUN 5 mg/dL (7-18) L 08/11/21 05:00 Creatinine 0.76 mg/dL (0.55-1.02) 08/11/21 05:00 Est GFR (MDRD) Af Amer > 60 (>60) 08/11/21 05:00 Est GFR (MDRD) Non-Af > 60 (>60) 08/11/21 05:00 Glucose 176 mg/dL (65-99) H 08/11/21 05:00 POC Glucose (mg/dL) 299 mg/dL (65-99) H 08/11/21 11:58 Calcium 8.4 mg/dL (8.5-10.1) L 08/11/21 05:00 Corrected Calcium 9.8 mg/dL (8.5-10.1) 08/11/21 05:00 Magnesium 2.5 mg/dL (1.7-2.9) 08/08/21 04:09 Total Bilirubin 0.40 mg/dL (0.2-1.0) 08/11/21 05:00 AST 19 Units/L (15-37) 08/11/21 05:00 ALT 22 Units/L (12-78) 08/11/21 05:00 Alkaline Phosphatase 56 Units/L (46-116) 08/11/21 05:00 Creatine Kinase 138 Units/L (26-192) 08/06/21 22:32 CK-MB (CK-2) 4.2 ng/mL (0-4.0) H* 08/06/21 22:32 CK/CKMB % Calc 3.0 % (<4) 08/06/21 22:32 Troponin I High Sens 9.7 ng/L (4.0-60.0) 08/06/21 22:32 Total Protein 5.9 g/dL (6.4-8.2) L 08/11/21 05:00 Albumin 2.2 g/dL (3.4-5.0) L 08/11/21 05:00 Globulin 3.7 g/dL (2.5-4.5) 08/11/21 05:00 Albumin/Globulin Ratio 0.6 Ratio (1.1-2.1) L 08/11/21 05:00 Specimen Type Catherized urine 08/07/21 04:00 Urine Color Yellow (YELLOW) 08/07/21 04:00 Urine Appearance Clear (CLEAR) 08/07/21 04:00 Urine pH 5.0 (5.0 - 8.0) 08/07/21 04:00 Ur Specific [place] 1.015 (1.000-1.030) 08/07/21 04:00 Urine Protein 3+ (NEGATIVE) 08/07/21 04:00 Urine Glucose (UA) 2+ (NEGATIVE) 08/07/21 04:00 Urine Ketones Negative (NEGATIVE) 08/07/21 04:00 Urine Occult Blood Negative (NEGATIVE) 08/07/21 04:00 Urine Nitrite Negative (NEGATIVE) 08/07/21 04:00 Urine Bilirubin Negative (NEGATIVE) 08/07/21 04:00 Urine Urobilinogen Normal (NORMAL) 08/07/21 04:00 Ur Leukocyte Esterase Negative (NEGATIVE) 08/07/21 04:00 Urine RBC None seen /HPF (0-3) 08/07/21 04:00 Urine WBC 0-2 /HPF (0-5) 08/07/21 04:00 Ur Squamous Epith Cells Rare /HPF (NEGATIVE) 08/07/21 04:00 Urine Bacteria 2+ /HPF (NEGATIVE) 08/07/21 04:00 Hyaline Casts Few /LPF (NEGATIVE) 08/07/21 04:00 Granular Casts Few /LPF (NEGATIVE) 08/07/21 04:00 Ur Culture Indicated? Yes/culture set up 08/07/21 04:00 SARS-CoV-2 (PCR) Positive (NEGATIVE) A 08/07/21 03:27 Influenza Type A (PCR) Negative (NEGATIVE) 08/07/21 03:27 Influenza Type B (PCR) Negative (NEGATIVE) 08/07/21 03:27 RSV (PCR) Negative (NEGATIVE) 08/07/21 03:27 Plan (1) COVID-19: Status: Acute Plan: TRENT Reddy's CXR in am. (2) Hyponatremia: Status: Acute Narrative Support Text: Much improved overall. Plan: Restrict fluids. Instructed to stop giving her water. (3) COPD (chronic obstructive pulmonary disease): Status: Acute Plan: Continue Symbicort abx. (4) Confusion: Status: Acute Narrative Support Text: Nearly resolved. Plan: I suspect her confusion will resolve with the correction of her Na level. (5) HTN (hypertension): Status: Acute Plan: Monitor BP (6) DM2 (diabetes mellitus, type 2): Status: Acute Plan: Monitor BS. (7) Microcytic anemia: Status: Acute Narrative Support Text: Stable. Plan: Moitor daily Hb's. (8) Pneumonia due to COVID-19 virus: Status: Acute Narrative Support Text: Clinically improved. Plan: Covid protocol. (9) Hypokalemia: Status: Resolved Plan: Potassium replacement protocol.
--- NOTE | 2021-08-29 16:35 | PCM.DCPLAN ---
DISCHARGE SUMMARY Admission Date Date of Admission: 08/07/21 Discharge Date Discharge Date: 08/11/21 Admission Diagnoses (1) COVID-19: Status: Acute (2) Hyponatremia: Status: Acute (3) COPD (chronic obstructive pulmonary disease): Status: Acute (4) Confusion: Status: Acute (5) HTN (hypertension): Status: Acute (6) DM2 (diabetes mellitus, type 2): Status: Acute (7) Microcytic anemia: Status: Acute (8) Pneumonia due to COVID-19 virus: Status: Acute Discharge Diagnoses Discharge Diagnosis: 1. Covid pneumonia 2. Hyponatrmia 3. DM2 4. COPD 5. Confusion 6. Microcytic Anemia 7. Hypokalemia Discharge Medications Discharge Medications: Home Medication List albuterol sulfate [ProAir HFA] 2 puff INHALATION BID 08/08/21 [History] amlodipine 10 mg PO DIRECTED 08/08/21 [History] aspirin 81 mg PO DAILY 08/08/21 [History] budesonide-formoterol [Symbicort] 2 puff INHALATION BID 08/08/21 [History] carvedilol 25 mg PO BID 08/08/21 [History] cholecalciferol (vitamin D3) [Vitamin D3] 125 mcg PO DAILY 08/08/21 [History] cyanocobalamin (vitamin B-12) [Vitamin B-12] 50 mcg PO DAILY 08/08/21 [History] ezetimibe 10 mg PO DAILY 08/08/21 [History] fexofenadine [Jeny] 180 mg PO HS 08/08/21 [History] gabapentin 100 mg PO DIRECTED 08/08/21 [History] garlic 1,000 mg PO HS 08/08/21 [History] glimepiride 2 mg PO DAILY 08/08/21 [History] glucosamine-chondroitin [Osteo Bi-Flex] 1 tab PO BID 08/08/21 [History] hydrochlorothiazide 25 mg PO QAM 08/08/21 [History] meloxicam 7.5 mg PO BID 08/08/21 [History] metformin 1,000 mg PO BID 08/08/21 [History] multivitamin 1 cap PO DAILY 08/08/21 [History] omega-3 fatty acids [Universal 3] 1,000 mg PO BID 08/08/21 [History] omeprazole 20 mg PO DAILY 08/08/21 [History] rosuvastatin 20 mg PO HS 08/08/21 [History] zinc 25 mg PO HS 08/08/21 [History] Prescriptions: Hospital Course Vital Signs: Temperature 99.5 F Pulse Rate [Apical] 67 Pulse Rate 82 Respiratory Rate 20 Blood Pressure [Right Arm] 126/53 Blood Pressure 171/72 O2 Sat by Pulse Oximetry 100 Latest Lab Results: Laboratory Last Values WBC 9.0 X10^3/uL (3.6-10.0) 08/11/21 05:00 RBC 3.18 X10^6/uL (3.5-5.4) L 08/11/21 05:00 Hgb 8.8 g/dL (12.0-16.0) L 08/11/21 05:00 Hct 25.3 % (36.0-47.0) L 08/11/21 05:00 MCV 79.8 fL (80.0-100.0) L 08/11/21 05:00 MCH 27.6 pg (27.0-34.0) 08/11/21 05:00 MCHC 34.6 g/dL (33.0-35.0) 08/11/21 05:00 RDW 16.1 % (11.6-16.5) 08/11/21 05:00 Plt Count 296 X10^3/uL (150.0-450.0) 08/11/21 05:00 MPV 7.7 fL (7.4-11.0) 08/11/21 05:00 Neut % (Auto) 68.3 % (42.0-75.0) 08/11/21 05:00 Lymph % (Auto) 15.3 % (21.0-51.0) L 08/11/21 05:00 [place] % (Auto) 10.5 % (0.0-13.0) 08/11/21 05:00 Eos % (Auto) 5.3 % (0.9-2.9) H 08/11/21 05:00 Baso % (Auto) 0.6 % (0.2-1.0) 08/11/21 05:00 Neut # (Auto) 6.1 x10^3/uL (2.2-4.8) H 08/11/21 05:00 Lymph # (Auto) 1.4 X10^3/uL (1.3-2.9) 08/11/21 05:00 [place] # (Auto) 0.9 x10^3/uL (0.3-0.8) H 08/11/21 05:00 Eos # (Auto) 0.5 x10^3/uL (0.0-0.2) H 08/11/21 05:00 Baso # (Auto) 0.1 X10^3/uL (0.0-0.1) 08/11/21 05:00 Absolute Nucleated RBC 0.0 /100WBC 08/11/21 05:00 Sample Site Rr 08/06/21 23:02 ABG pH 7.480 (7.35-7.45) H 08/06/21 23:02 ABG pCO2 31.0 mmHg (35.0-45.0) L 08/06/21 23:02 ABG pO2 111.0 mmHg (80.0-100.0) H 08/06/21 23:02 ABG HCO3 23.1 mmol/L (22-26) 08/06/21 23:02 ABG O2 Saturation 99.0 % (90-100) 08/06/21 23:02 ABG Base Excess 0.3 mmol/L (-2.0-2.0) 08/06/21 23:02 Alcides Test Pos 08/06/21 23:02 A-a Gradient 0.0 mmHg 08/06/21 23:02 FiO2 21 08/06/21 23:02 Blood Gas Comments Lee well kh 08/06/21 23:02 Sodium 130 mmol/L (136-145) L 08/11/21 05:00 Corrected Sodium 132 mmol/L (136-145) L 08/11/21 05:00 Potassium 3.5 mmol/L (3.5-5.1) 08/11/21 05:00 Chloride 94 mmol/L (98-107) L 08/11/21 05:00 Carbon Dioxide 27.6 mmol/L (21-32) 08/11/21 05:00 BUN 5 mg/dL (7-18) L 08/11/21 05:00 Creatinine 0.76 mg/dL (0.55-1.02) 08/11/21 05:00 Est GFR (MDRD) Af Amer > 60 (>60) 08/11/21 05:00 Est GFR (MDRD) Non-Af > 60 (>60) 08/11/21 05:00 Glucose 176 mg/dL (65-99) H 08/11/21 05:00 POC Glucose (mg/dL) 299 mg/dL (65-99) H 08/11/21 11:58 Calcium 8.4 mg/dL (8.5-10.1) L 08/11/21 05:00 Corrected Calcium 9.8 mg/dL (8.5-10.1) 08/11/21 05:00 Magnesium 2.5 mg/dL (1.7-2.9) 08/08/21 04:09 Total Bilirubin 0.40 mg/dL (0.2-1.0) 08/11/21 05:00 AST 19 Units/L (15-37) 08/11/21 05:00 ALT 22 Units/L (12-78) 08/11/21 05:00 Alkaline Phosphatase 56 Units/L (46-116) 08/11/21 05:00 Creatine Kinase 138 Units/L (26-192) 08/06/21 22:32 CK-MB (CK-2) 4.2 ng/mL (0-4.0) H* 08/06/21 22:32 CK/CKMB % Calc 3.0 % (<4) 08/06/21 22:32 Troponin I High Sens 9.7 ng/L (4.0-60.0) 08/06/21 22:32 Total Protein 5.9 g/dL (6.4-8.2) L 08/11/21 05:00 Albumin 2.2 g/dL (3.4-5.0) L 08/11/21 05:00 Globulin 3.7 g/dL (2.5-4.5) 08/11/21 05:00 Albumin/Globulin Ratio 0.6 Ratio (1.1-2.1) L 08/11/21 05:00 Specimen Type Catherized urine 08/07/21 04:00 Urine Color Yellow (YELLOW) 08/07/21 04:00 Urine Appearance Clear (CLEAR) 08/07/21 04:00 Urine pH 5.0 (5.0 - 8.0) 08/07/21 04:00 Ur Specific [place] 1.015 (1.000-1.030) 08/07/21 04:00 Urine Protein 3+ (NEGATIVE) 08/07/21 04:00 Urine Glucose (UA) 2+ (NEGATIVE) 08/07/21 04:00 Urine Ketones Negative (NEGATIVE) 08/07/21 04:00 Urine Occult Blood Negative (NEGATIVE) 08/07/21 04:00 Urine Nitrite Negative (NEGATIVE) 08/07/21 04:00 Urine Bilirubin Negative (NEGATIVE) 08/07/21 04:00 Urine Urobilinogen Normal (NORMAL) 08/07/21 04:00 Ur Leukocyte Esterase Negative (NEGATIVE) 08/07/21 04:00 Urine RBC None seen /HPF (0-3) 08/07/21 04:00 Urine WBC 0-2 /HPF (0-5) 08/07/21 04:00 Ur Squamous Epith Cells Rare /HPF (NEGATIVE) 08/07/21 04:00 Urine Bacteria 2+ /HPF (NEGATIVE) 08/07/21 04:00 Hyaline Casts Few /LPF (NEGATIVE) 08/07/21 04:00 Granular Casts Few /LPF (NEGATIVE) 08/07/21 04:00 Ur Culture Indicated? Yes/culture set up 08/07/21 04:00 SARS-CoV-2 (PCR) Positive (NEGATIVE) A 08/07/21 03:27 Influenza Type A (PCR) Negative (NEGATIVE) 08/07/21 03:27 Influenza Type B (PCR) Negative (NEGATIVE) 08/07/21 03:27 RSV (PCR) Negative (NEGATIVE) 08/07/21 03:27 Hospital Course: The patient had an uncomplicated hospital stay. She was treated for Covid Pneumonia with Covid Protocol. She recieved IV Zithromax and Doxycycline and Symbicort. She developed hypokalemia on the 2nd hospital day where that was corrected. Her confusion became less and less as her Sodium level rosalia. Her O2 sats steadily improved and on her 5th hospital day her mental status was back at base line per her . The patient looked well as she was ambulating to the bathroom and back with no problems. She answered questions well and her lung exam only showed few scattered rhonchi. Her corrected Sodium level was 132 this am. She will be discharged home in stable condition. Instructions Instructions: Fall Prevention in the Home, Adult, [id number] How to Use an Incentive Spirometer COVID-19 Frequently Asked Questions Chronic Obstructive Pulmonary Disease Exacerbation, [id number] COVID-19 COVID-19: How to Protect Yourself and Others - [facility] Hyponatremia, [id number] Forms: Precautions for COVID19 [facility] Patient Portal Social Distancing
--- NOTE | 2021-09-10 10:35 | DR.URIAD ---
HPI HPI Comment HPI Comment: COUGHING ,FEVER AND SHORTNESS OF BREATH. HAS COVID PNEUMONIA. Complaint Chief Complaint Doctors Comments: COUGHING,FEVER AND SHORTNESS OF BREATH. HAS COVID PNEUMONIA COVID-19 Coronavirus risk:travel/contact w/high risk person: Yes Has patient experienced Coronavirus symptoms: Yes Coronavirus symptoms experienced: Fever, Coughing and Shortness of Breath PMH PMH Past Medical History: COPD, Diabetes and Hypertension Surgical History: Unknown Family History Family Medical History: Hypertension Social History Does patient currently use any type of tobacco product: No Have you used tobacco products in the last 12 months: No Type of Tobacco Use: None Does any household member use tobacco: No Alcohol Use: None Travel Risk Coronavirus risk:travel/contact w/high risk person: Yes Has patient experienced Coronavirus symptoms: Yes Coronavirus symptoms experienced: Fever, Coughing and Shortness of Breath Infectious screening Isolation: Droplet ROS Review of Systems Constitutional: Chills, Weakness and Fatigue Eyes: No Symptoms Reported ENTM: No Symptoms Reported Respiratoy: Short of Breath Cardiovascular: No Symptoms Reported Gastrointestinal/Abdominal: No Symptoms Reported Genitourinary: No Symptoms Reported Neurological: No Symptoms Reported Musculoskeletal: No Symptoms Reported Integumentary: No Symptoms Reported Hematologic/Lymphatic: No Symptoms Reported Endocrine: No Symptoms Reported Psychiatric: No Symptoms Reported All Other Systems: Reviewed and Negative PE General General Appearance: Alert, In No Apparent Distress and In Distress (MODERATE DISTRESS) Head Head Exam: Normal Inspection Eyes Eye exam: Normal Appearance ENT ENT Exam: Normal Exam External Ear Exam: Normal External Inspection TM/Canal Exam: Bilateral: Normal Nose Exam: Normal Nose Exam Nasal Speculum Exam: Bilateral: Normal Mouth Exam: Normal Inspection Throat Exam: Normal Inspection Neck Neck Exam: Normal Inspection Chest Chest Inspection: Normal Inspection Respiratory Respiratory Exam: Normal Lung Sounds Bilat Respiratory Exam: Bilateral: Clear to Auscultation Cardiovascular Cardiovascular Exam: Regular Rate and Normal Rhythm Abdominal Exam Abdominal Exam: Normal Inspection, Normal Bowel Sounds and Soft Extremeties Extremities Exam: Normal Inspection Back Back Exam: Normal Inspection Neurologic Neurological Exam: Alert and Oriented X3 Psychiatric Psychiatric Exam: Normal Affect and Normal Mood Skin Skin Exam: Warm, Dry, Intact and Normal Color MDM Additional Information Findings: COVID PNEUMONIA,HYPONATREMIA COURSE Treatment Treatment: GIVEN ONE LITER BOLUS OF NACL AND ADMITTED FOR COVID PNEUMONIA AND DEHYDRATION ROR Labs Reviewed Laboratory Results Reviewed?: Yes Result Diagrams: 08/11/21 05:00 08/11/21 05:00 Laboratory: WBC 13.6 X10^3/uL (3.6-10.0) H 08/06/21 22: RBC 3.20 X10^6/uL (3.5-5.4) L 08/06/21 22:32 Hgb 8.5 g/dL (12.0-16.0) L 08/06/21 22: Hct 25.1 % (36.0-47.0) L 08/06/21 22: MCV 78.4 fL (80.0-100.0) L 08/06/21 22: MCH 26.7 pg (27.0-34.0) L 08/06/21: MCHC 34.1 g/dL (33.0-35.0) 08/06/21 22: RDW 16.4 % (11.6-16.5) 08/06/21 22: Plt Count 260 X10^3/uL (150.0-450.0) 08/06/21 22: MPV 7.5 fL (7.4-11.0) 08/06/21 22: Neut % (Auto) 86.3 % (42.0-75.0) H 08/06/21 22: Lymph % (Auto) 7.6 % (21.0-51.0) L 08/06/21 22: [place] % (Auto) 5.9 % (0.0-13.0) 08/06/21 22: Eos % (Auto) 0.0 % (0.9-2.9) L 08/06/21: Baso % (Auto) 0.2 % (0.2-1.0) 08/06/21 22: Neut # (Auto) 11.8 x10^3/uL (2.2-4.8) H 08/06/21 22: Lymph # (Auto) 1.0 X10^3/uL (1.3-2.9) L 08/06/21 22:32 [place] # (Auto) 0.8 x10^3/uL (0.3-0.8) 08/06/21 22: Eos # (Auto) 0.0 x10^3/uL (0.0-0.2) 08/06/21 22:32 Baso # (Auto) 0.0 X10^3/uL (0.0-0.1) 08/06/21 22:32 Absolute Nucleated RBC 0.0 /100WBC 08/06/21 22:32 Sample Site Rr 08/06/21 23:02 ABG pH 7.480 (7.35-7.45) H 08/06/21 23:02 ABG pCO2 31.0 mmHg (35.0-45.0) L 08/06/21 23:02 ABG pO2 111.0 mmHg (80.0-100.0) H 08/06/21 23:02 ABG HCO3 23.1 mmol/L (22-26) 08/06/21 23:02 ABG O2 Saturation 99.0 % (90-100) 08/06/21 23:02 ABG Base Excess 0.3 mmol/L (-2.0-2.0) 08/06/21 23:02 Alcides Test Pos 08/06/21 23:02 A-a Gradient 0.0 mmHg 08/06/21 23:02 FiO2 21 08/06/21 23:02 Blood Gas Comments Lee well kh 08/06/21 23:02 Sodium 106 mmol/L (136-145) L* 08/06/21 22:32 Corrected Sodium 110 mmol/L (136-145) L 08/06/21 22:32 Potassium 4.5 mmol/L (3.5-5.1) 08/06/21 22:32 Chloride 77 mmol/L (98-107) L* 08/06/21 22:32 Carbon Dioxide 23.9 mmol/L (21-32) 08/06/21 22:32 BUN 20 mg/dL (7-18) H 08/06/21 22:32 Creatinine 1.04 mg/dL (0.55-1.02) H 08/06/21 22:32 Est GFR (MDRD) Af Amer > 60 (>60) 08/06/21 22:32 Est GFR (MDRD) Non-Af 55 (>60) L 08/06/21 22:32 Glucose 250 mg/dL (65-99) H 08/06/21 22:32 Calcium 7.7 mg/dL (8.5-10.1) L 08/06/21 22:32 Corrected Calcium 8.9 mg/dL (8.5-10.1) 08/06/21 22:32 Total Bilirubin 0.30 mg/dL (0.2-1.0) 08/06/21 22:32 AST 29 Units/L (15-37) 08/06/21 22:32 ALT 27 Units/L (12-78) 08/06/21 22:32 Alkaline Phosphatase 64 Units/L (46-116) 08/06/21 22:32 Creatine Kinase 138 Units/L (26-192) 08/06/21 22:32 CK-MB (CK-2) 4.2 ng/mL (0-4.0) H* 08/06/21 22:32 CK/CKMB % Calc 3.0 % (<4) 08/06/21 22:32 Troponin I High Sens 9.7 ng/L (4.0-60.0) 08/06/21 22:32 Total Protein 6.1 g/dL (6.4-8.2) L 08/06/21 22:32 Albumin 2.5 g/dL (3.4-5.0) L 08/06/21 22:32 Globulin 3.6 g/dL (2.5-4.5) 08/06/21 22:32 Albumin/Globulin Ratio 0.7 Ratio (1.1-2.1) L 08/06/21 22:32 Opioid Opioid Risk Tool Age ([place] box if 16-45): No History of Preadolescent Sexual Abuse: No Total: 0 Total Score Risk Category: Low Risk Copyright: Juanjo VOSS predicting aberrant behaviors Diagnosis Discharge Problem: Hyponatremia, COVID-19, COPD (chronic obstructive pulmonary disease) Instructions Instructions: Fall Prevention in the Home, Adult, [id number] How to Use an Incentive Spirometer COVID-19 Frequently Asked Questions Chronic Obstructive Pulmonary Disease Exacerbation, [id number] COVID-19 COVID-19: How to Protect Yourself and Others - CDC Hyponatremia, [id number] Forms: Precautions for COVID19 [facility] Patient Portal Social Distancing
== END 2021-08-11 13:20 | disposition home or self-care (01) | DRG 178 ==
LOC: ER 09:33 → U 08-07 02:50 → MED/SURG 08-09 16:57
PROVIDERS: ADMIT Family Medicine; ATTEND Family Medicine
DX: E11.65 Type 2 diabetes mellitus with hyperglycemia; R09.02 Hypoxemia; I10 Essential (primary) hypertension; R06.02 Shortness of breath; J44.9 Chronic obstructive pulmonary disease, unspecified; E87.1 Hypo-osmolality and hyponatremia; M79.641 Pain in right hand; U07.1 COVID-19

== ENCOUNTER 2022-01-09 00:01 | Inpatient (IN) ==
[2022-01-09 00:28] LABS: ABG ALLEN TEST POS; ABG BASE EXCESS -0.7 mmol/L (-2.0-2.0); ABG HCO3 24.2 mmol/L (22-26)
--- NOTE | 2022-01-09 00:37 | DR.SOBA ---
HPI Time Seen Time Seen by Provider: 01/09/22 00:37 Primary Care Physician Primary Care Physician: BRANDY NIELSON HPI Comment HPI Comment: PATIENT IS 76YR OLD FEMALE WITH HISTORY OF COPD, HTN AND DM IN ER WITH INCREASING SOB AND LOW O2 SAT. INCREASING SOB SINCE MONDAY AND WORSE TODAY. HOME MEDS DID NOT HELP. SHE IS COUGHING, PRODUCTIVE AND CLEAR SPUTUM. SHE IS WEAK AND DRAIN OD ENERGY. NO FEVER. Complaints Chief Complaint Doctors Comments: INCREASING SOB SINCE MONDAY. GETING WORSE. Chief Complaint:: SOB, ORTHOPNEA ONSET BUT BECOMING SEVERE TONIGHT COVID-19 Coronavirus risk:travel/contact w/high risk person: No Has patient experienced Coronavirus symptoms: No Source History Provided: Patient and Significant Other Mode of Arrival Mode of Arrival: Ambulatory Timing Onset of Chief Complaint: 01/08/22 Context Onset:: At Rest History of:: COPD Currently on:: Inhaled Bronchodilators Prehospital Care:: Inhaled B2 Modifying Factors Worsens:: Exertion Improves:: Rest Associated Signs and Symptoms Associated Signs and Symptoms: Cough and Chest Pain (TIGHTNESS.) If Chest Pain Quality: Pleuritic If Cough Cough: Productive and Clear PMH PMH Past Medical History: Yes Past Medical History: COPD, Diabetes and Hypertension Past Surgical History: Yes Surgical History: Unknown Family History History of Family Medical Conditions: Yes Family Medical History: Hypertension Social History Alcohol Use: None Do you use any recreational Drugs:: No Lives With: Spouse Lives Where: Home Travel Risk Coronavirus risk:travel/contact w/high risk person: No Has patient experienced Coronavirus symptoms: No Infectious screening In the last 2 months have you had wt loss of >10#?: NO Have you had fever, night sweats or hemotysis?: No Have you traveled outside the country in the last 6 months?: No Isolation: Standard ROS Review of Systems Constitutional: See HPI, Weakness, Fatigue and Loss of Appetite; negative Fever Eyes: No Symptoms Reported and See HPI ENTM: See HPI, Nose Discharge and Nose Congestion Respiratoy: See HPI, Productive Cough and Short of Breath; negative Wheezing Cardiovascular: See HPI and Chest Pain (TIGHTNESS) Gastrointestinal/Abdominal: No Symptoms Reported and See HPI; negative Abdominal Pain, Diarrhea or Vomiting Genitourinary: No Symptoms Reported and See HPI; negative Dysuria, Frequency or Hematuria Neurological: See HPI and Weakness; negative Headache or Dizziness Musculoskeletal: No Symptoms Reported and See HPI Integumentary: See HPI; negative Rash or Juandice Hematologic/Lymphatic: See HPI, Easy Bleeding and Easy Bruising Endocrine: No Symptoms Reported and See HPI; negative Increased Thirst or Increased Urine Psychiatric: No Symptoms Reported and See HPI All Other Systems: Reviewed and Negative PE Vital Signs Vitals: Temperature 97.9 F Pulse Rate 102 Respiratory Rate 17 Blood Pressure [Right Arm] 126/53 Blood Pressure 186/84 O2 Sat by Pulse Oximetry 87 General Limitations: No Limitations Head Head Exam: Normal Inspection and Atraumatic Eyes Eye exam: Normal Appearance; negative Scleral Icterus or Conjunctival Injection ENT ENT Exam: Normal Oropharynx, Normal External Ear Exam and TM's Normal Bilaterally Neck Neck Exam: Normal Inspection and Trachea Midline; negative Tenderness Chest Chest Inspection: Normal Inspection and Symmetric Chest Wall Rise; negative Tenderness Respiratory Respiratory Exam: Normal Lung Sounds Bilat and Respiratory Distress; negative Accessory Muscle Use or Chest Wall Tenderness Respiratory Exam: Bilateral: Rhonchi and Lower: Rhonchi Cardiovascular Cardiovascular Exam: Regular Rate, Normal Rhythm and Normal Heart Sounds; negative Systolic Murmur or Diastolic Murmur Abdominal Exam Abdominal Exam: Normal Inspection, Normal Bowel Sounds and Soft; negative Tenderness Extremities Extremities Exam: Normal Inspection and Normal Capillary Refill Back Back Exam: negative (R) CVA Tenderness or (L) CVA Tenderness Neurologic Neurological Exam: Alert and Oriented X3; negative Motor Sensory Deficit Psychiatric Psychiatric Exam: Normal Affect and Normal Mood Skin Skin Exam: Intact COURSE Treatment Treatment: SEE ORDERS DONE WHILE PATIENT WAS IN ER. LABS, EKG AND XRAY DISCUSSED WITH PATTIENT AND HER . Reevaluation 1st: Improved (O2 SAT IMPROVED WITH OXYGEN NC.) 2nd: Improved (BP IMPROVED WITH HYDRALAZINE IV.) Consultation Consultation Comments: DISCUSSED PATIENT WITH DR. PERALTA. HE WILL ADMIT PATIENT. Education/Counseling Education/Counseling: Patient and Family ROR Labs Reviewed Laboratory Results Reviewed?: Yes Result Diagrams: 01/09/22 04:30 01/09/22 04:30 Laboratory: WBC 9.7 X10^3/uL (3.6-10.0) 01/09/22 00:25 RBC 4.00 X10^6/uL (3.5-5.4) 01/09/22 00:25 Hgb 11.8 g/dL (12.0-16.0) L 01/09/22 00:25 Hct 33.7 % (36.0-47.0) L 01/09/22 00:25 MCV 84.1 fL (80.0-100.0) 01/09/22 00:25 MCH 29.4 pg (27.0-34.0) 01/09/22 00:25 MCHC 34.9 g/dL (33.0-35.0) 01/09/22 00:25 RDW 13.8 % (11.6-16.5) 01/09/22 00:25 Plt Count 273 X10^3/uL (150.0-450.0) 01/09/22 00:25 MPV 8.2 fL (7.4-11.0) 01/09/22 00:25 Neut % (Auto) 81.5 % (42.0-75.0) H 01/09/22 00:25 Lymph % (Auto) 12.2 % (21.0-51.0) L 01/09/22 00:25 [place] % (Auto) 5.8 % (0.0-13.0) 01/09/22 00:25 Eos % (Auto) 0.1 % (0.9-2.9) L 01/09/22 00:25 Baso % (Auto) 0.4 % (0.2-1.0) 01/09/22 00:25 Neut # (Auto) 7.9 x10^3/uL (2.2-4.8) H 01/09/22 00:25 Lymph # (Auto) 1.2 X10^3/uL (1.3-2.9) L 01/09/22 00:25 [place] # (Auto) 0.6 x10^3/uL (0.3-0.8) 01/09/22 00:25 Eos # (Auto) 0.0 x10^3/uL (0.0-0.2) 01/09/22 00:25 Baso # (Auto) 0.0 X10^3/uL (0.0-0.1) 01/09/22 00:25 Absolute Nucleated RBC 0.0 /100WBC 01/09/22 00:25 Sample Site Lr 01/09/22 00:23 ABG pH 7.390 (7.35-7.45) 01/09/22 00: ABG pCO2 40.0 mmHg (35.0-45.0) 01/09/22 00: ABG pO2 57.0 mmHg (80.0-100.0) L 01/09/22: ABG HCO3 24.2 mmol/L (22-26) 01/09/22 00: ABG O2 Saturation 89.0 % (90-100) L 01/09/22: ABG Base Excess -0.7 mmol/L (-2.0-2.0) 01/09/22: Alcides Test Pos 01/09/22 00: A-a Gradient 150.0 mmHg 01/09/22: FiO2 36.0 01/09/22 00: Blood Gas Comments Lee well ae 01/09/22 00:23 Sodium 119 mmol/L (136-145) L* 01/09/22 00:25 Corrected Sodium 122 mmol/L (136-145) L 01/09/22 00:25 Potassium 3.9 mmol/L (3.5-5.1) 01/09/22 00: Chloride 86 mmol/L (98-107) L 01/09/22 00: Carbon Dioxide 24.9 mmol/L (21-32) 01/09/22 00:25 BUN 16 mg/dL (7-18) 01/09/22 00:25 Creatinine 1.10 mg/dL (0.55-1.02) H 01/09/22 00:25 Est GFR (MDRD) Af Amer > 60 (>60) 01/09/22 00: Est GFR (MDRD) Non-Af 51 (>60) L 01/09/22 00:25 Glucose 216 mg/dL (65-99) H 01/09/22 00:25 Calcium 8.7 mg/dL (8.5-10.1) 01/09/22 00:25 Corrected Calcium 9.5 mg/dL (8.5-10.1) 01/09/22 00:25 Total Bilirubin 0.40 mg/dL (0.2-1.0) 01/09/22 00:25 AST 36 Units/L (15-37) 01/09/22 00:25 ALT 24 Units/L (12-78) 06/26/22 00:25 Alkaline Phosphatase 74 Units/L (46-116) 01/09/22 00:25 Creatine Kinase 457 Units/L (26-192) H 01/09/22 00:25 CK-MB (CK-2) 6.2 ng/mL (0-4.0) H 01/09/22 00:25 CK/CKMB % Calc 1.4 % (<4) 01/09/22 00:25 Troponin I High Sens 31.9 ng/L (4.0-60.0) 01/09/22 00:25 Total Protein 7.7 g/dL (6.4-8.2) 01/09/22 00:25 Albumin 3.0 g/dL (3.4-5.0) L 01/09/22 00:25 Globulin 4.7 g/dL (2.5-4.5) H 01/09/22 00:25 Albumin/Globulin Ratio 0.6 Ratio (1.1-2.1) L 01/09/22 00:25 SARS-CoV-2 (PCR) Negative (NEGATIVE) 01/09/22 00:30 Influenza Type A (PCR) Negative (NEGATIVE) 01/09/22 00:30 Influenza Type B (PCR) Negative (NEGATIVE) 01/09/22 00:30 RSV (PCR) Positive (NEGATIVE) A 01/09/22 00:30 XRAY XRAY Interpreted by: Radiologist (REPORT NOTED.) and Self EKG Rate: 97 [place]: Normal Rhythm: NSR Block: None Hypertrophy: None ST: Nonsp Opioid Opioid Risk Tool Age (Markell box if 16-45): No History of Preadolescent Sexual Abuse: No Total: 0 Total Score Risk Category: Low Risk Copyright: [facility] predicting aberrant behaviors Diagnosis Discharge Problem: Acute hyponatremia, COPD exacerbation, Hypoxia, Hypertension, uncontrolled, RSV infection
[2022-01-09 00:39] LABS: BASOPHILS % (AUTO) 0.4 % (0.2-1.0); EOSINOPHILS % (AUTO) 0.1 % (0.9-2.9); HEMATOCRIT 33.7 % (36.0-47.0); HEMOGLOBIN 11.8 g/dL (12.0-16.0); LYMPHOCYTES # (AUTO) 1.2 X10^3/uL (1.3-2.9); LYMPHOCYTES % (AUTO) 12.2 % (21.0-51.0); MEAN CORPUSCULAR HEMOGLOBIN 29.4 pg (27.0-34.0); MEAN CORPUSCULAR HGB CONC 34.9 g/dL (33.0-35.0); MEAN CORPUSCULAR VOLUME 84.1 fL (80.0-100.0); MEAN PLATELET VOLUME 8.2 fL (7.4-11.0); MONOCYTES # (AUTO) 0.6 x10^3/uL (0.3-0.8); MONOCYTES % (AUTO) 5.8 % (0.0-13.0); NEUTROPHILS # (AUTO) 7.9 x10^3/uL (2.2-4.8); NEUTROPHILS % (AUTO) 81.5 % (42.0-75.0); RED CELL DISTRIBUTION WIDTH 13.8 % (11.6-16.5); WHITE BLOOD COUNT 9.7 X10^3/uL (3.6-10.0)
[2022-01-09 01:00] LABS: ALANINE AMINOTRANSFERASE 24 Units/L (12-78); ALKALINE PHOSPHATASE 74 Units/L (46-116); ASPARTATE AMINO TRANSFERASE 36 Units/L (15-37); BLOOD UREA NITROGEN 16 mg/dL (7-18); CALCIUM 8.7 mg/dL (8.5-10.1); CARBON DIOXIDE 24.9 mmol/L (21-32); CHLORIDE 86 mmol/L (98-107); CKMB % 1.4 % (<4); COR CA(FOR HYPOALB) 9.5 mg/dL (8.5-10.1); COR NA(FOR HYPERGLY) 122 mmol/L (136-145); CREATINE KINASE 457 Units/L (26-192); CREATINE KINASE MB 6.2 ng/mL (0-4.0); TOTAL PROTEIN 7.7 g/dL (6.4-8.2); eGFR NON BLACK RACES 51 (>60)
[2022-01-09 01:03] LABS: SODIUM 119 mmol/L (136-145)
[2022-01-09] MEDS ORDERED: APRESOLINE INJ 20 MG VIAL IVP ONE (01:28)
[2022-01-09] MEDS ORDERED: NS 1,000 ML IV 1,000 ML ONE (01:34)
[2022-01-09] MEDS ORDERED: APRESOLINE INJ 20 MG VIAL ONE (01:34)
[2022-01-09] MEDS: NS 1,000 ML IV 1,000 ML IV SCH ×3 (01:46→18:29)
[2022-01-09] MEDS ORDERED: SALINE 3% 15 ML NEB TX NEB PRN (03:16)
[2022-01-09 04:53] VITALS: BMI 24.2
[2022-01-09 05:11] LABS: BASOPHILS % (AUTO) 0.5 % (0.2-1.0); EOSINOPHILS % (AUTO) 0.2 % (0.9-2.9); HEMATOCRIT 31.9 % (36.0-47.0); HEMOGLOBIN 11.2 g/dL (12.0-16.0); LYMPHOCYTES # (AUTO) 1.1 X10^3/uL (1.3-2.9); LYMPHOCYTES % (AUTO) 11.4 % (21.0-51.0); MEAN CORPUSCULAR HEMOGLOBIN 29.4 pg (27.0-34.0); MEAN CORPUSCULAR VOLUME 83.9 fL (80.0-100.0); MONOCYTES # (AUTO) 0.6 x10^3/uL (0.3-0.8); MONOCYTES % (AUTO) 6.6 % (0.0-13.0); NEUTROPHILS # (AUTO) 7.8 x10^3/uL (2.2-4.8); NEUTROPHILS % (AUTO) 81.3 % (42.0-75.0); RED BLOOD COUNT 3.81 X10^6/uL (3.5-5.4); RED CELL DISTRIBUTION WIDTH 13.8 % (11.6-16.5); WHITE BLOOD COUNT 9.6 X10^3/uL (3.6-10.0)
[2022-01-09] MEDS: ZOFRAN INJ 4 MG VIAL IVP PRN (05:42)
[2022-01-09] MEDS: DUONEB 0.5 MG/3 MG (3 mL) NEB SCH ×5 (05:45→21:20)
[2022-01-09 05:46] LABS: ALANINE AMINOTRANSFERASE 22 Units/L (12-78); ALBUMIN 2.6 g/dL (3.4-5.0); ALKALINE PHOSPHATASE 69 Units/L (46-116); ASPARTATE AMINO TRANSFERASE 30 Units/L (15-37); BLOOD UREA NITROGEN 15 mg/dL (7-18); CALCIUM 8.3 mg/dL (8.5-10.1); CARBON DIOXIDE 24.7 mmol/L (21-32); CHLORIDE 88 mmol/L (98-107); CKMB % 1.7 % (<4); COR CA(FOR HYPOALB) 9.4 mg/dL (8.5-10.1); COR NA(FOR HYPERGLY) 122 mmol/L (136-145); CREATINE KINASE 431 Units/L (26-192); CREATINE KINASE MB 7.2 ng/mL (0-4.0); CREATININE 0.85 mg/dL (0.55-1.02); MAGNESIUM 1.2 mg/dL (1.7-2.9); TOTAL PROTEIN 6.9 g/dL (6.4-8.2); eGFR NON BLACK RACES > 60 (>60)
[2022-01-09 05:49] LABS: SODIUM 120 mmol/L (136-145)
[2022-01-09] MEDS ORDERED: DUONEB 0.5 MG/3 MG (3 mL) NEB SCH (06:00)
--- NOTE | 2022-01-09 06:42 | RAD ---
HISTORYSOBSTUDYCHEST, 1 VIEWCOMPARISONNone availableFINDINGSThe trachea is midline. The cardiac silhouette is enlarged. Moderate calcified atherosclerotic disease of the aortic arch. The lungs demonstrate interstitial coarsening, upper lobe predominant increased lucency and hyperexpansion which are consistent with changes associated with COPD. The lungs are clear without focal infiltrate or effusion. The bony thorax is unremarkable.IMPRESSIONCardiomegalyCOPD changes without evidence of acute airspace disease.Electronically signed by: CECILY HERNÁNDEZ (Jan 09, 2022 06:40:33)
[2022-01-09] MEDS ORDERED: POTASSIUM CHL 40 MEQ/NS 0.45% 500 ML IV PRN (07:29)
[2022-01-09] MEDS ORDERED: K-RIDER 10 MEQ/NS 100 ML 10 MEQ/100 ML BAG IV PRN (07:29)
[2022-01-09] MEDS ORDERED: MICRO K EXTEN CAP 10 MEQ PO PRN (07:29)
[2022-01-09] MEDS ORDERED: KLOR-CON PO PRN (07:29)
[2022-01-09] MEDS ORDERED: POTASSIUM CHLORIDE LIQ 20 MEQ UDC PO PRN (07:29)
[2022-01-09] MEDS ORDERED: POTASSIUM CHL 60 MEQ/NS 0.45% 500 ML IV PRN (07:29)
[2022-01-09] MEDS: MAGNESIUM SULFATE 1 GRAM/100 mL PREMIX 1 G/100 ML BAG IV PRN ×4 (08:19→14:43)
[2022-01-09] MEDS ORDERED: GLUCOSAMINE CHONDROITIN PO SCH (09:00)
[2022-01-09] MEDS ORDERED: CYANOCOBALAMIN 50 MCG PO SCH (09:00)
[2022-01-09] MEDS ORDERED: GLUCOPHAGE ONE ×2 (09:25→20:42)
[2022-01-09] MEDS: PULMICORT NEB TX 0.5 MG NEB SCH ×2 (09:25→21:20)
[2022-01-09] MEDS ORDERED: ROCEPHIN VIAL 1 GRAM ONE (09:42)
[2022-01-09] MEDS: SOLU-Medrol 40 MG VIAL IVP SCH ×3 (09:47→21:52)
[2022-01-09] MEDS: ROCEPHIN VIAL 1 GRAM 1 G in NS 100 ML IV + SPIKE MINIBAG* 100 ML IV SCH (09:48)
[2022-01-09] MEDS: LOVAZA PO SCH ×2 (09:50→21:51)
[2022-01-09] MEDS: ASPIRIN EC 81 MG PO SCH (09:50)
[2022-01-09] MEDS: GLUCOPHAGE PO SCH ×2 (09:50→21:50)
[2022-01-09] MEDS: AMARYL TAB 4 MG PO SCH (09:51)
[2022-01-09] MEDS: ZETIA TAB 10 MG PO SCH (09:51)
[2022-01-09] MEDS: TAB-A-VITE PO SCH (09:51)
[2022-01-09] MEDS: COREG TAB 25 MG PO SCH ×2 (09:51→21:50)
[2022-01-09] MEDS: NEURONTIN CAP 100 MG PO SCH ×2 (09:51→21:51)
[2022-01-09] MEDS: VITAMIN D3 125 mcg (5,000 UNITS) PO SCH (09:53)
[2022-01-09] MEDS: PriLOSEC PO SCH (09:53)
[2022-01-09 10:13] LABS: BILIRUBIN,URINE NEGATIVE (NEGATIVE); BLOOD/HEMOGLOBIN,URINE 2+ (NEGATIVE); GLUCOSE, URINE 1+ (NEGATIVE); KETONES,URINE NEGATIVE (NEGATIVE); LEUKOCYTE ESTERASE ,URINE NEGATIVE (NEGATIVE); NITRITES,URINE NEGATIVE (NEGATIVE); PROTEIN,URINE 3+ (NEGATIVE); UROBILINOGEN,URINE NORMAL (NORMAL)
[2022-01-09 10:31] LABS: APPEARANCE,URINE CLEAR (CLEAR); COLOR,URINE STRAW (YELLOW)
[2022-01-09 10:32] LABS: BACTERIA,URINE NEGATIVE /HPF (NEGATIVE); RBC,URINE 0-2 /HPF (0-3); SQUAMOUS EPITHELIAL CELL,UR FEW /HPF (NEGATIVE)
[2022-01-09 10:33] LABS: HYALINE CASTS, URINE FEW /LPF (NEGATIVE)
[2022-01-09] MEDS: NORVASC TAB 10 MG PO SCH (11:46)
[2022-01-09 12:11] LABS: CKMB % 1.9 % (<4); CREATINE KINASE MB 7.8 ng/mL (0-4.0)
[2022-01-09] MEDS ORDERED: CATAPRES TAB 0.1 MG PO ONE (12:30)
[2022-01-09] MEDS: K-DUR TAB 20 MEQ PO PRN (14:43)
[2022-01-09] MEDS: NovoLIN R (or HumuLIN R) SC PRN ×2 (17:41→21:52)
--- NOTE | 2022-01-09 20:13 | DR.H&P ---
H&P - History & Physical for Day of: H&P Date: 01/09/22 - Chief Complaint Chief Complaint: SOB, COUGH - Past Medical History Past Medical History: Hypertension, Diabetes, COPD - Past Surgical History Surgical History: Angioplasty/Stents, , Hysterectomy - Family History Family Medical History: Diabetes Mellitus, Cancer, ID, Hypertension - Social History Does patient currently use any type of tobacco product: No Have you used tobacco products in the last 12 months: No Type of Tobacco Use: Cigarettes Alcohol Use: None Drug Use: None - Medications Home Medications: cyclobenzaprine [From Flexeril] Allergy (Verified 01/09/22 01:15) - Review of Systems Constitutional: Weakness Eyes: No Symptoms Reported ENT: No Symptoms Reported Respiratory: Cough, Shortness of Breath, SOB with Excertion, Wheezing Cardiovascular: No Symptoms Reported Gastrointestinal: No Symptoms Reported Genitourinary: No Symptoms Reported Musculoskeletal: No Symptoms Reported Skin: No Symptoms Reported Neurological: Weakness - Physical Exam Vital Signs: Temperature 97.6 F Pulse Rate [Right Radial] 80 Pulse Rate 105 Respiratory Rate 24 Blood Pressure [Right Arm] 152/68 Blood Pressure 173/75 O2 Sat by Pulse Oximetry 88 Oriented: Normal Eyes: Normal Ear: Normal Nose: Normal Throat: Normal Respiratory: Wheezes Throughout Cardiovascular: Normal : Normal Auscultation: Bowel Sounds: Normal Palpation: Normal Tenderness: Normal Skin: Normal Musculoskeletal: Normal Psychiatric: Normal Mood Description: Calm Affect: Normal Speech Pattern: Clear - Assessment/Plan (1) Acute hyponatremia Status: Acute Plan: ADMIT, SUPPLEMENTAL OXYGEN, NORMAL SALINE AT 125 ML/HR, DUONEBS Q4H, PULMICORT NEBS BID, ROCEPHIN 1G IV DAILY, SOLU-MEDROL 40MG IV Q8H, OTBS ACHS, HUMULIN R SLIDING SCALE, THE POTASSIUM AND MAGNESIUM PROTOCOLS, ZOFRAN 4MG IV Q6H PRN, AND HER HOME MEDICATIONS WERE RESUMED. (2) COPD exacerbation Status: Acute (3) RSV infection Status: Acute (4) Hypoxia Status: Acute (5) Hypertension, uncontrolled Status: Acute Plan: RESUME HOME MEDICATIONS - Allergies Allergies/Adverse Reactions: Allergies Allergy/AdvReac Type Severity Reaction Status Date / Time cyclobenzaprine Allergy Verified 01/09/22 01:15 [From Flexeril]
[2022-01-09] MEDS ORDERED: ALLEGRA ONE (20:42)
[2022-01-09] MEDS ORDERED: GARLIC 1000 MG PO SCH (21:00)
[2022-01-09] MEDS: SNACK - Diabetic Appropriate PO SCH (21:49)
[2022-01-09] MEDS: CRESTOR TAB 10 MG PO SCH (21:50)
[2022-01-09] MEDS: ALLEGRA PO SCH (21:50)
[2022-01-09] MEDS: ZINC SULFATE PO SCH (21:51)
[2022-01-10] MEDS: DUONEB 0.5 MG/3 MG (3 mL) NEB SCH ×6 (01:10→20:58)
[2022-01-10] MEDS: NS 1,000 ML IV 1,000 ML IV SCH ×4 (02:01→18:49)
[2022-01-10 05:13] LABS: BASOPHILS % (AUTO) 0.1 % (0.2-1.0); HEMATOCRIT 26.9 % (36.0-47.0); HEMOGLOBIN 9.6 g/dL (12.0-16.0); LYMPHOCYTES # (AUTO) 0.7 X10^3/uL (1.3-2.9); LYMPHOCYTES % (AUTO) 12.8 % (21.0-51.0); MEAN CORPUSCULAR HEMOGLOBIN 29.6 pg (27.0-34.0); MEAN CORPUSCULAR HGB CONC 35.7 g/dL (33.0-35.0); MEAN PLATELET VOLUME 8.3 fL (7.4-11.0); MONOCYTES # (AUTO) 0.1 x10^3/uL (0.3-0.8); MONOCYTES % (AUTO) 2.5 % (0.0-13.0); NEUTROPHILS # (AUTO) 4.6 x10^3/uL (2.2-4.8); NEUTROPHILS % (AUTO) 84.6 % (42.0-75.0); RED BLOOD COUNT 3.24 X10^6/uL (3.5-5.4); RED CELL DISTRIBUTION WIDTH 13.6 % (11.6-16.5); WHITE BLOOD COUNT 5.4 X10^3/uL (3.6-10.0)
[2022-01-10 05:15] LABS: ALANINE AMINOTRANSFERASE 17 Units/L (12-78); ALBUMIN 2.2 g/dL (3.4-5.0); ALKALINE PHOSPHATASE 56 Units/L (46-116); ASPARTATE AMINO TRANSFERASE 24 Units/L (15-37); BLOOD UREA NITROGEN 16 mg/dL (7-18); CALCIUM 7.9 mg/dL (8.5-10.1); CARBON DIOXIDE 25.5 mmol/L (21-32); CHLORIDE 90 mmol/L (98-107); COR CA(FOR HYPOALB) 9.3 mg/dL (8.5-10.1); COR NA(FOR HYPERGLY) 121 mmol/L (136-145); CREATININE 0.86 mg/dL (0.55-1.02); TOTAL PROTEIN 5.9 g/dL (6.4-8.2); eGFR NON BLACK RACES > 60 (>60)
[2022-01-10 05:21] LABS: SODIUM 120 mmol/L (136-145)
--- NOTE | 2022-01-10 05:39 | RAD ---
HISTORYF/U COPD EXACERBATION; SOB Relevant Clinical InformationSTUDYCHEST, 1 [id number]/26/2022FINDINGSThe trachea is midline. The cardiac silhouette is mildly enlarged.. Chronic interstitial lung changes with flattening of the diaphragm consistent with COPD is observedThe lungs are clear without focal infiltrate or effusion. The bony thorax is unremarkable.IMPRESSIONMild cardiomegaly.COPD.No active cardiopulmonary disease .Electronically signed by: Donato Feldman (Jan 10, 2022 05:37:38)
[2022-01-10] MEDS: SOLU-Medrol 40 MG VIAL IVP SCH ×3 (05:55→22:26)
[2022-01-10] MEDS: PULMICORT NEB TX 0.5 MG NEB SCH ×2 (09:30→20:57)
[2022-01-10] MEDS ORDERED: GLUCOPHAGE ONE ×2 (09:37→20:18)
[2022-01-10] MEDS: ALBUMIN HUMAN 25%- 100 ML 100 ML IV SCH (09:41)
[2022-01-10] MEDS: AMARYL TAB 4 MG PO SCH (09:42)
[2022-01-10] MEDS: COREG TAB 25 MG PO SCH ×2 (09:43→22:17)
[2022-01-10] MEDS: GLUCOPHAGE PO SCH ×2 (09:43→22:15)
[2022-01-10] MEDS: ASPIRIN EC 81 MG PO SCH (09:43)
[2022-01-10] MEDS: PriLOSEC PO SCH (09:44)
[2022-01-10] MEDS: TAB-A-VITE PO SCH (09:44)
[2022-01-10] MEDS: NEURONTIN CAP 100 MG PO SCH ×2 (09:44→22:15)
[2022-01-10] MEDS: VITAMIN D3 125 mcg (5,000 UNITS) PO SCH (09:44)
[2022-01-10] MEDS: LOVAZA PO SCH ×2 (09:44→22:16)
[2022-01-10] MEDS: ZETIA TAB 10 MG PO SCH (09:45)
[2022-01-10] MEDS ORDERED: NS 100 ML IV 100 ML ONE (10:38)
[2022-01-10] MEDS: ROCEPHIN VIAL 1 GRAM 1 G in NS 100 ML IV + SPIKE MINIBAG* 100 ML IV SCH (11:46)
[2022-01-10] MEDS: NORVASC TAB 10 MG PO SCH (12:20)
[2022-01-10] MEDS: LOVENOX INJ 40 MG SYR SC SCH (12:20)
[2022-01-10] MEDS: NovoLIN R (or HumuLIN R) SC PRN ×2 (12:20→16:57)
[2022-01-10] MEDS ORDERED: ALLEGRA ONE (20:18)
[2022-01-10] MEDS: SNACK - Diabetic Appropriate PO SCH (22:14)
[2022-01-10] MEDS: ZINC SULFATE PO SCH (22:15)
[2022-01-10] MEDS: CRESTOR TAB 10 MG PO SCH (22:16)
[2022-01-10] MEDS: ALLEGRA PO SCH (22:17)
[2022-01-11] MEDS ORDERED: APRESOLINE INJ 20 MG VIAL IVP ONE (00:30)
[2022-01-11] MEDS ORDERED: CATAPRES TAB 0.1 MG PO ONE (00:30)
[2022-01-11] MEDS ORDERED: NORMODYNE INJ 20 MG VIAL IV PRN (00:30)
[2022-01-11] MEDS: DUONEB 0.5 MG/3 MG (3 mL) NEB SCH ×6 (00:45→21:11)
[2022-01-11] MEDS: NS 1,000 ML IV 1,000 ML IV SCH ×6 (00:47→21:43)
[2022-01-11 04:43] LABS: BASOPHILS % (AUTO) 0.1 % (0.2-1.0); HEMOGLOBIN 9.3 g/dL (12.0-16.0); LYMPHOCYTES # (AUTO) 0.8 X10^3/uL (1.3-2.9); LYMPHOCYTES % (AUTO) 5.5 % (21.0-51.0); MEAN CORPUSCULAR HEMOGLOBIN 28.8 pg (27.0-34.0); MEAN CORPUSCULAR HGB CONC 34.6 g/dL (33.0-35.0); MEAN CORPUSCULAR VOLUME 83.4 fL (80.0-100.0); MEAN PLATELET VOLUME 8.1 fL (7.4-11.0); MONOCYTES # (AUTO) 0.6 x10^3/uL (0.3-0.8); MONOCYTES % (AUTO) 4.4 % (0.0-13.0); NEUTROPHILS # (AUTO) 12.7 x10^3/uL (2.2-4.8); RED BLOOD COUNT 3.23 X10^6/uL (3.5-5.4); RED CELL DISTRIBUTION WIDTH 13.9 % (11.6-16.5)
[2022-01-11 04:55] LABS: ALANINE AMINOTRANSFERASE 17 Units/L (12-78); ALBUMIN 2.5 g/dL (3.4-5.0); ALKALINE PHOSPHATASE 55 Units/L (46-116); ASPARTATE AMINO TRANSFERASE 20 Units/L (15-37); BLOOD UREA NITROGEN 18 mg/dL (7-18); CARBON DIOXIDE 25.5 mmol/L (21-32); CHLORIDE 99 mmol/L (98-107); COR CA(FOR HYPOALB) 9.2 mg/dL (8.5-10.1); COR NA(FOR HYPERGLY) 133 mmol/L (136-145); CREATININE 0.83 mg/dL (0.55-1.02); SODIUM 130 mmol/L (136-145); TOTAL PROTEIN 5.8 g/dL (6.4-8.2); eGFR NON BLACK RACES > 60 (>60)
[2022-01-11] MEDS: K-DUR TAB 20 MEQ PO PRN (06:05)
[2022-01-11] MEDS: SOLU-Medrol 40 MG VIAL IVP SCH ×3 (06:05→22:10)
--- NOTE | 2022-01-11 06:22 | RAD ---
HISTORYShortness of breathSTUDYChest AP [id number]/27/2022FINDINGSHear t remains enlarged. Luci are normal. Aorta is calcified. Lungs remain hyperinflated. Chronic interstitial lung changes are present and stable. No definite alveolar infiltrates or areas of consolidation identified. There is a small left pleural effusion present. Bony thorax is unremarkable.IMPRESSIONMild cardiomegaly without congestive heart failureHyperinflation with chronic interstitial lung changes present. Consistent with COPD in the appropriate clinical setting and unchangedSmall left pleural effusionElectronically signed by: SYLVAIN THOMPSON (Jan 11, 2022 06:21:10)
[2022-01-11] MEDS ORDERED: GLUCOPHAGE ONE ×2 (07:50→20:35)
[2022-01-11] MEDS: PULMICORT NEB TX 0.5 MG NEB SCH ×2 (09:30→21:11)
[2022-01-11] MEDS: ALBUMIN HUMAN 25%- 100 ML 100 ML IV SCH (09:37)
[2022-01-11] MEDS: ASPIRIN EC 81 MG PO SCH (09:37)
[2022-01-11] MEDS: AMARYL TAB 4 MG PO SCH (09:39)
[2022-01-11] MEDS: GLUCOPHAGE PO SCH ×2 (09:39→21:47)
[2022-01-11] MEDS: COREG TAB 25 MG PO SCH ×2 (09:39→21:50)
[2022-01-11] MEDS: PriLOSEC PO SCH (09:40)
[2022-01-11] MEDS: LOVAZA PO SCH ×2 (09:40→21:49)
[2022-01-11] MEDS: TAB-A-VITE PO SCH (09:40)
[2022-01-11] MEDS: NEURONTIN CAP 100 MG PO SCH ×2 (09:40→21:48)
[2022-01-11] MEDS: VITAMIN D3 125 mcg (5,000 UNITS) PO SCH (09:40)
[2022-01-11] MEDS: ZETIA TAB 10 MG PO SCH (09:41)
[2022-01-11] MEDS: ROCEPHIN VIAL 1 GRAM 1 G in NS 100 ML IV + SPIKE MINIBAG* 100 ML IV SCH (09:49)
[2022-01-11] MEDS: LOVENOX INJ 40 MG SYR SC SCH (10:06)
[2022-01-11] MEDS: ROCEPHIN VIAL 1 GRAM 1 G in NS 100 ML IV 100 ML IV SCH (10:30)
[2022-01-11] MEDS: NORVASC TAB 10 MG PO SCH (12:15)
[2022-01-11] MEDS: NovoLIN R (or HumuLIN R) SC PRN (12:16)
[2022-01-11] MEDS: ZOFRAN INJ 4 MG VIAL IVP PRN (13:28)
--- NOTE | 2022-01-11 17:26 | PCM.PROG ---
Progress Note - Progress Note for Day of Date of Exam: 01/10/22 - Subjective Subjective: IS CURRENTLY INPATIENT STATUS FOR TREATMENT OF HYPONATREMIA, COPD EXACERBATION, RSV, AND HYPOXIA. TODAY, SHE IS ALERT AND ORIENTED, LYING IN BED ON MORNING ROUNDS. SHE CONTINUES WITH COMPLAINTS OF WEAKNESS, COUGH, AND SHORTNESS OF BREATH. SHE ADMITS TO SLIGHT IMPROVEMENT IN SYMPTOMS SINCE YESTERDAY. ON EXAMINATION, HEART IS REGULAR IN RATE AND RHTYHM. BILATERAL LUNGS ARE NOTED WITH EXPIRATORY WHEEZING THROUGHOUT. ABDOMEN IS ROUND, SOFT, AND NON-TENDER WITH NORMAL BOWEL SOUNDS NOTED IN ALL QUADRANTS. NO UPPER OR LOWER EXTREMITY IS NOTED. HER VITALS THIS MORNING WERE: 97.7-97-24 -91%-182/77. LABS WERE OBTAINED. WBC 5.4, RBC 3.24, HGB 9.6, HCT 26.9, PLT COUNT 242, SODIUM 120, POTASSIUM 3.8, BUN 16, CREATININE 0.86, GLUCOSE 130, CALCIUM 7.9, AST 24, ALT 17, ALK PHOS 56, TOTAL PROTEIN 5.9, ALBUMIN 2.2. A CHEST XRAY WAS OBTAINED AND REVEALED: Mild cardiomegaly. COPD. No active cardiopulmonary disease. SHE IS CURRENTLY RECEIVING NORMAL SALINE AT 125 ML/HR, DUONEBS Q4H, PULMICORT NEBS BID, ROCEPHIN 1G IV DAILY, SOLU-MEDROL 40MG IV Q8H, OTBS ACHS, HUMULIN R SLIDING SCALE, THE POTASSIUM AND MAGNESIUM PROTOCOLS, ZOFRAN 4MG IV Q6H PRN, AND HER HOME MEDICATIONS WERE RESUMED. WE WILL CONTINUE WITH CURRENT PLAN OF CARE TODAY. WE MADE SURE TO HOLD HER HCTZ, WHICH HIS LIKELY THE CAUSE OF THE LOW SODIUM. WE ALSO ENCOURAGED HER TO DECREASE HER FREE WATER INTAKE AND TO DRINK MORE GATORADE. OTHERWISE, WE WILL FOLLOW-UP WITH AM LABS AND CONTINUE TO MONITOR. TIME SPENT ON CLINICAL ASSESSMENT, REVIEWING LABS AND IMAGING, DECISION MAKING, AND DOCUMENTATION GREATER THAN 45 MINUTES. - Past Medical Family Social History Past Med/Fam/Surg Hx: No changes since H&P Allergies: Allergies cyclobenzaprine [From Flexeril] Allergy (Verified 01/09/22 01:15) - Review of Systems ROS: No change since H&P - Vital Signs and I&O's Vital Signs: Temperature 97.5 F Pulse Rate [Right Radial] 94 Pulse Rate 100 Respiratory Rate 24 Blood Pressure [Right Arm] 194/79 Blood Pressure 173/75 O2 Sat by Pulse Oximetry 96 Intake and Output: Intake & Output 01/09/22 01/10/22 01/11/22 01/12/22 11:59 11:59 11:59 11:59 Intake Total 468 / 468 2460 / 2460 4387 / 4387 2019 Balance 468 / 468 2460 / 2460 4387 / 4387 2019 - Physical Exam Oriented: Normal Eyes: Normal Ear: Normal Nose: Normal Throat: Normal Respiratory: Generalized, Diminished, Wheezes Cardiovascular: Normal : Normal Auscultation: Bowel Sounds: Normal Palpation: Normal Tenderness: Normal Skin: Normal Musculoskeletal: Normal Psychiatric: Normal Mood Description: Calm Affect: Normal Speech Pattern: Clear, Appropriate - Laboratory and Diagnostics Result Diagrams: 01/11/22 03:55 01/11/22 03:55 Labs: 01/11/22 15:19 Sputum - Expectorated Sputum - Final Laboratory WBC 14.0 X10^3/uL (3.6-10.0) H D 01/11/22 03:55 RBC 3.23 X10^6/uL (3.5-5.4) L 01/11/22 03:55 Hgb 9.3 g/dL (12.0-16.0) L 01/11/22 03:55 Hct 27.0 % (36.0-47.0) L 01/11/22 03:55 MCV 83.4 fL (80.0-100.0) 01/11/22 03:55 MCH 28.8 pg (27.0-34.0) 01/11/22 03:55 MCHC 34.6 g/dL (33.0-35.0) 01/11/22 03:55 RDW 13.9 % (11.6-16.5) 01/11/22 03:55 Plt Count 241 X10^3/uL (150.0-450.0) 01/11/22 03:55 MPV 8.1 fL (7.4-11.0) 01/11/22 03:55 Neut % (Auto) 90.0 % (42.0-75.0) H 01/11/22 03:55 Lymph % (Auto) 5.5 % (21.0-51.0) L 01/11/22 03:55 [place] % (Auto) 4.4 % (0.0-13.0) 01/11/22 03:55 Eos % (Auto) 0.0 % (0.9-2.9) L 01/11/22 03:55 Baso % (Auto) 0.1 % (0.2-1.0) L 01/11/22 03:55 Neut # (Auto) 12.7 x10^3/uL (2.2-4.8) H 01/11/22 03:55 Lymph # (Auto) 0.8 X10^3/uL (1.3-2.9) L 01/11/22 03:55 [place] # (Auto) 0.6 x10^3/uL (0.3-0.8) 01/11/22 03:55 Eos # (Auto) 0.0 x10^3/uL (0.0-0.2) 01/11/22 03:55 Baso # (Auto) 0.0 X10^3/uL (0.0-0.1) 01/11/22 03:55 Absolute Nucleated RBC 0.0 /100WBC 01/11/22 03:55 PT 13.9 SECONDS (11.8-14.3) 01/09/22 04:30 INR Target Range - 01/09/22 04:30 INR 1.11 (0.8-1.3) 01/09/22 04:30 APTT 31.3 SECONDS (22.9-36.5) 01/09/22 04:30 PTT Comment - 01/09/22 04:30 Sample Site Lr 01/09/22 00:23 ABG pH 7.390 (7.35-7.45) 01/09/22 00:23 ABG pCO2 40.0 mmHg (35.0-45.0) 01/09/22 00:23 ABG pO2 57.0 mmHg (80.0-100.0) L 01/09/22 00:23 ABG HCO3 24.2 mmol/L (22-26) 01/09/22 00:23 ABG O2 Saturation 89.0 % (90-100) L 01/09/22 00:23 ABG Base Excess -0.7 mmol/L (-2.0-2.0) 01/09/22 00:23 Alcides Test Pos 01/09/22 00:23 A-a Gradient 150.0 mmHg 01/09/22 00:23 FiO2 36.0 01/09/22 00:23 Blood Gas Comments Lee well ae 01/09/22 00:23 Sodium 130 mmol/L (136-145) L 01/11/22 03:55 Corrected Sodium 133 mmol/L (136-145) L 01/11/22 03:55 Potassium 3.4 mmol/L (3.5-5.1) L 01/11/22 03:55 Chloride 99 mmol/L (98-107) 01/11/22 03:55 Carbon Dioxide 25.5 mmol/L (21-32) 01/11/22 03:55 BUN 18 mg/dL (7-18) 01/11/22 03:55 Creatinine 0.83 mg/dL (0.55-1.02) 01/11/22 03:55 Est GFR (MDRD) Af Amer > 60 (>60) 01/11/22 03:55 Est GFR (MDRD) Non-Af > 60 (>60) 01/11/22 03:55 Glucose 207 mg/dL (65-99) H 01/11/22 03:55 POC Glucose (mg/dL) 229 mg/dL (65-99) H 01/11/22 11:05 Calcium 8.0 mg/dL (8.5-10.1) L 01/11/22 03:55 Corrected Calcium 9.2 mg/dL (8.5-10.1) 01/11/22 03:55 Magnesium 1.2 mg/dL (1.7-2.9) L 01/09/22 07:57 Total Bilirubin 0.20 mg/dL (0.2-1.0) 01/11/22 03:55 AST 20 Units/L (15-37) 01/11/22 03:55 ALT 17 Units/L (12-78) 01/11/22 03:55 Alkaline Phosphatase 55 Units/L (46-116) 01/11/22 03:55 Creatine Kinase 410 Units/L (26-192) H 01/09/22 11:30 CK-MB (CK-2) 7.8 ng/mL (0-4.0) H 01/09/22 11:30 CK/CKMB % Calc 1.9 % (<4) 01/09/22 11:30 Troponin I High Sens 41.4 ng/L (4.0-60.0) 01/09/22 11:30 Total Protein 5.8 g/dL (6.4-8.2) L 01/11/22 03:55 Albumin 2.5 g/dL (3.4-5.0) L 01/11/22 03:55 Globulin 3.3 g/dL (2.5-4.5) 01/11/22 03:55 Albumin/Globulin Ratio 0.8 Ratio (1.1-2.1) L 01/11/22 03:55 Specimen Type Random urine 01/09/22 09:30 Urine Color Straw (YELLOW) 01/09/22 09:30 Urine Appearance Clear (CLEAR) 01/09/22 09:30 Urine pH 6.0 (5.0 - 8.0) 01/09/22 09:30 Ur Specific [place] 1.010 (1.000-1.030) 01/09/22 09:30 Urine Protein 3+ (NEGATIVE) 01/09/22 09:30 Urine Glucose (UA) 1+ (NEGATIVE) 01/09/22 09:30 Urine Ketones Negative (NEGATIVE) 01/09/22 09:30 Urine Blood 2+ (NEGATIVE) 01/09/22 09:30 Urine Nitrite Negative (NEGATIVE) 01/09/22 09:30 Urine Bilirubin Negative (NEGATIVE) 01/09/22 09:30 Urine Urobilinogen Normal (NORMAL) 01/09/22 09:30 Ur Leukocyte Esterase Negative (NEGATIVE) 01/09/22 09:30 Urine RBC 0-2 /HPF (0-3) 01/09/22 09:30 Urine WBC 0-2 /HPF (0-5) 01/09/22 09:30 Ur Squamous Epith Cells Few /HPF (NEGATIVE) 01/09/22 09:30 Urine Bacteria Negative /HPF (NEGATIVE) 01/09/22 09:30 Hyaline Casts Few /LPF (NEGATIVE) 01/09/22 09:30 Urine Mucus Rare /HPF (NEGATIVE) 01/09/22 09:30 Ur Culture Indicated? No/not indicated 01/09/22 09:30 SARS-CoV-2 (PCR) Negative (NEGATIVE) 01/09/22 00:30 Influenza Type A (PCR) Negative (NEGATIVE) 01/09/22 00:30 Influenza Type B (PCR) Negative (NEGATIVE) 01/09/22 00:30 RSV (PCR) Positive (NEGATIVE) A 01/09/22 00:30 - Plan (1) Acute hyponatremia Status: Acute Plan: SUPPLEMENTAL OXYGEN, NORMAL SALINE AT 125 ML/HR, DUONEBS Q4H, PULMICORT NEBS BID, ROCEPHIN 1G IV DAILY, SOLU-MEDROL 40MG IV Q8H, OTBS ACHS, HUMULIN R SLIDING SCALE, THE POTASSIUM AND MAGNESIUM PROTOCOLS, ZOFRAN 4MG IV Q6H PRN, AND HER HOME MEDICATIONS WERE RESUMED. (2) COPD exacerbation Status: Acute (3) RSV infection Status: Acute (4) Hypoxia Status: Acute (5) Hypertension, uncontrolled Status: Acute Plan: RESUME HOME MEDICATIONS, BUT HOLD HCTZ
--- NOTE | 2022-01-11 17:43 | PCM.PROG ---
Progress Note - Progress Note for Day of Date of Exam: 01/11/22 - Subjective Subjective: IS CURRENTLY INPATIENT STATUS FOR TREATMENT OF HYPONATREMIA, COPD EXACERBATION, RSV, AND HYPOXIA. TODAY, SHE IS ALERT AND ORIENTED, LYING IN BED ON MORNING ROUNDS. SHE CONTINUES WITH COMPLAINTS OF WEAKNESS, COUGH, AND SHORTNESS OF BREATH. COUGH HAS BEEN PRODUCTIVE THIS MORNING. SHE IS CURRENTLY UTILIZING OXYGEN VIA NASAL CANNULA AT 3 LPM. SATURATIONS HAVE BEEN AROUND 90-91% THROUGHOUT THE NIGHT. SHE ADMITS TO SLIGHT IMPROVEMENT IN SYMPTOMS SINCE YESTERDAY. ON EXAMINATION, HEART IS REGULAR IN RATE AND RHTYHM. BILATERAL LUNGS ARE NOTED WITH EXPIRATORY WHEEZING THROUGHOUT. ABDOMEN IS ROUND, SOFT, AND NON-TENDER WITH NORMAL BOWEL SOUNDS NOTED IN ALL QUADRANTS. NO UPPER OR LOWER EXTREMITY IS NOTED. HER VITALS THIS MORNING WERE: 97.6-93-24-94%-208/88. LABS WERE OBTAINED. WBC 14.0, RBC 3.23, HGB 9.3, HCT 27.0, PLT COUNT 241, SODIUM 130, POTASSIUM 3.4, BUN 18, CREATININE 0.83, GLUCOSE 207, CALCIUM 8.0, AST 20, ALT 17, ALK PHOS 55, TOTAL PROTIEN 5.8, ALBUMIN 2.5. A CHEST XRAY WAS OBTAINED AND REVEALED: Mild cardiomegaly without congestive heart failure. Hyperinflation with chronic interstitial lung changes present. Consistent with COPD in the appropriate clinical setting and unchanged. Small left pleural effusion. SHE IS CURRENTLY RECEIVING NORMAL SALINE AT 125 ML/HR, DUONEBS Q4H, PULMICORT NEBS BID, ROCEPHIN 1G IV DAILY, SOLU-MEDROL 40MG IV Q8H, OTBS ACHS, HUMULIN R SLIDING SCALE, THE POTASSIUM AND MAGNESIUM PROTOCOLS, ZOFRAN 4MG IV Q6H PRN, AND HER HOME MEDICATIONS WERE RESUMED. WE WILL CONTINUE WITH CURRENT PLAN OF CARE TODAY. WE ARE HOLDING HER HCTZ, WHICH HIS LIKELY THE CAUSE OF THE LOW SODIUM. WE WILL ADD LISINOPRIL 10MG PO HS DUE TO ELEVATED BLOOD PRESSURE. OTHERWISE, WE WILL FOLLOW-UP WITH AM LABS AND CHEST XRAY AND CONTINUE TO MONITOR. TIME SPENT ON CLINICAL ASSESSMENT, REVIEWING LABS AND IMAGING, DECISION MAKING, AND DOCUMENTATION GREATER THAN 45 MINUTES. - Past Medical Family Social History Past Med/Fam/Surg Hx: No changes since H&P Allergies: Allergies cyclobenzaprine [From Flexeril] Allergy (Verified 01/09/22 01:15) - Review of Systems ROS: No change since H&P - Vital Signs and I&O's Vital Signs: Temperature 97.5 F Pulse Rate [Right Radial] 94 Pulse Rate 100 Respiratory Rate 24 Blood Pressure [Right Arm] 194/79 Blood Pressure 173/75 O2 Sat by Pulse Oximetry 96 Intake and Output: Intake & Output 01/09/22 01/10/22 01/11/22 01/12/22 11:59 11:59 11:59 11:59 Intake Total 468 / 468 2460 / 2460 4387 / 4387 2019 Balance 468 / 468 2460 / 2460 4387 / 4387 2019 - Physical Exam Oriented: Normal Eyes: Normal Ear: Normal Nose: Normal Throat: Normal Respiratory: Generalized, Diminished, Wheezes Cardiovascular: Normal : Normal Auscultation: Bowel Sounds: Normal Tenderness: Normal Skin: Normal Musculoskeletal: Normal Psychiatric: Normal Mood Description: Calm Affect: Normal Speech Pattern: Clear, Appropriate - Laboratory and Diagnostics Result Diagrams: 01/11/22 03:55 01/11/22 03:55 Labs: 01/11/22 15:19 Sputum - Expectorated Sputum - Final Laboratory WBC 14.0 X10^3/uL (3.6-10.0) H D 01/11/22 03:55 RBC 3.23 X10^6/uL (3.5-5.4) L 01/11/22 03:55 Hgb 9.3 g/dL (12.0-16.0) L 01/11/22 03:55 Hct 27.0 % (36.0-47.0) L 01/11/22 03:55 MCV 83.4 fL (80.0-100.0) 01/11/22 03:55 MCH 28.8 pg (27.0-34.0) 01/11/22 03:55 MCHC 34.6 g/dL (33.0-35.0) 01/11/22 03:55 RDW 13.9 % (11.6-16.5) 01/11/22 03:55 Plt Count 241 X10^3/uL (150.0-450.0) 01/11/22 03:55 MPV 8.1 fL (7.4-11.0) 01/11/22 03:55 Neut % (Auto) 90.0 % (42.0-75.0) H 01/11/22 03:55 Lymph % (Auto) 5.5 % (21.0-51.0) L 01/11/22 03:55 [place] % (Auto) 4.4 % (0.0-13.0) 01/11/22 03:55 Eos % (Auto) 0.0 % (0.9-2.9) L 01/11/22 03:55 Baso % (Auto) 0.1 % (0.2-1.0) L 01/11/22 03:55 Neut # (Auto) 12.7 x10^3/uL (2.2-4.8) H 01/11/22 03:55 Lymph # (Auto) 0.8 X10^3/uL (1.3-2.9) L 01/11/22 03:55 [place] # (Auto) 0.6 x10^3/uL (0.3-0.8) 01/11/22 03:55 Eos # (Auto) 0.0 x10^3/uL (0.0-0.2) 01/11/22 03:55 Baso # (Auto) 0.0 X10^3/uL (0.0-0.1) 01/11/22 03:55 Absolute Nucleated RBC 0.0 /100WBC 01/11/22 03:55 PT 13.9 SECONDS (11.8-14.3) 01/09/22 04:30 INR Target Range - 01/09/22 04:30 INR 1.11 (0.8-1.3) 01/09/22 04:30 APTT 31.3 SECONDS (22.9-36.5) 01/09/22 04:30 PTT Comment - 01/09/22 04:30 Sample Site Lr 01/09/22 00:23 ABG pH 7.390 (7.35-7.45) 01/09/22 00:23 ABG pCO2 40.0 mmHg (35.0-45.0) 01/09/22 00:23 ABG pO2 57.0 mmHg (80.0-100.0) L 01/09/22 00:23 ABG HCO3 24.2 mmol/L (22-26) 01/09/22 00:23 ABG O2 Saturation 89.0 % (90-100) L 01/09/22 00:23 ABG Base Excess -0.7 mmol/L (-2.0-2.0) 01/09/22 00:23 Aclides Test Pos 01/09/22 00:23 A-a Gradient 150.0 mmHg 01/09/22 00:23 FiO2 36.0 01/09/22 00:23 Blood Gas Comments Lee well ae 01/09/22 00:23 Sodium 130 mmol/L (136-145) L 01/11/22 03:55 Corrected Sodium 133 mmol/L (136-145) L 01/11/22 03:55 Potassium 3.4 mmol/L (3.5-5.1) L 01/11/22 03:55 Chloride 99 mmol/L (98-107) 01/11/22 03:55 Carbon Dioxide 25.5 mmol/L (21-32) 01/11/22 03:55 BUN 18 mg/dL (7-18) 01/11/22 03:55 Creatinine 0.83 mg/dL (0.55-1.02) 01/11/22 03:55 Est GFR (MDRD) Af Amer > 60 (>60) 01/11/22 03:55 Est GFR (MDRD) Non-Af > 60 (>60) 01/11/22 03:55 Glucose 207 mg/dL (65-99) H 01/11/22 03:55 POC Glucose (mg/dL) 183 mg/dL (65-99) H 01/11/22 17:25 Calcium 8.0 mg/dL (8.5-10.1) L 01/11/22 03:55 Corrected Calcium 9.2 mg/dL (8.5-10.1) 01/11/22 03:55 Magnesium 1.2 mg/dL (1.7-2.9) L 01/09/22 07:57 Total Bilirubin 0.20 mg/dL (0.2-1.0) 01/11/22 03:55 AST 20 Units/L (15-37) 01/11/22 03:55 ALT 17 Units/L (12-78) 01/11/22 03:55 Alkaline Phosphatase 55 Units/L (46-116) 01/11/22 03:55 Creatine Kinase 410 Units/L (26-192) H 01/09/22 11:30 CK-MB (CK-2) 7.8 ng/mL (0-4.0) H 01/09/22 11:30 CK/CKMB % Calc 1.9 % (<4) 01/09/22 11:30 Troponin I High Sens 41.4 ng/L (4.0-60.0) 01/09/22 11:30 Total Protein 5.8 g/dL (6.4-8.2) L 01/11/22 03:55 Albumin 2.5 g/dL (3.4-5.0) L 01/11/22 03:55 Globulin 3.3 g/dL (2.5-4.5) 01/11/22 03:55 Albumin/Globulin Ratio 0.8 Ratio (1.1-2.1) L 01/11/22 03:55 Specimen Type Random urine 01/09/22 09:30 Urine Color Straw (YELLOW) 01/09/22 09:30 Urine Appearance Clear (CLEAR) 01/09/22 09:30 Urine pH 6.0 (5.0 - 8.0) 01/09/22 09:30 Ur Specific [place] 1.010 (1.000-1.030) 01/09/22 09:30 Urine Protein 3+ (NEGATIVE) 01/09/22 09:30 Urine Glucose (UA) 1+ (NEGATIVE) 01/09/22 09:30 Urine Ketones Negative (NEGATIVE) 01/09/22 09:30 Urine Blood 2+ (NEGATIVE) 01/09/22 09:30 Urine Nitrite Negative (NEGATIVE) 01/09/22 09:30 Urine Bilirubin Negative (NEGATIVE) 01/09/22 09:30 Urine Urobilinogen Normal (NORMAL) 01/09/22 09:30 Ur Leukocyte Esterase Negative (NEGATIVE) 01/09/22 09:30 Urine RBC 0-2 /HPF (0-3) 01/09/22 09:30 Urine WBC 0-2 /HPF (0-5) 01/09/22 09:30 Ur Squamous Epith Cells Few /HPF (NEGATIVE) 01/09/22 09:30 Urine Bacteria Negative /HPF (NEGATIVE) 01/09/22 09:30 Hyaline Casts Few /LPF (NEGATIVE) 01/09/22 09:30 Urine Mucus Rare /HPF (NEGATIVE) 01/09/22 09:30 Ur Culture Indicated? No/not indicated 01/09/22 09:30 SARS-CoV-2 (PCR) Negative (NEGATIVE) 01/09/22 00:30 Influenza Type A (PCR) Negative (NEGATIVE) 01/09/22 00:30 Influenza Type B (PCR) Negative (NEGATIVE) 01/09/22 00:30 RSV (PCR) Positive (NEGATIVE) A 01/09/22 00:30 - Plan (1) Acute hyponatremia Status: Acute Plan: SUPPLEMENTAL OXYGEN, NORMAL SALINE AT 125 ML/HR, DUONEBS Q4H, PULMICORT NEBS BID, ROCEPHIN 1G IV DAILY, SOLU-MEDROL 40MG IV Q8H, OTBS ACHS, HUMULIN R SLIDING SCALE, LINSINOPRIL 10MG PO HS, THE POTASSIUM AND MAGNESIUM PROTOCOLS, ZOFRAN 4MG IV Q6H PRN, AND HER HOME MEDICATIONS WERE RESUMED. (2) COPD exacerbation Status: Acute (3) RSV infection Status: Acute (4) Hypoxia Status: Acute (5) Hypertension, uncontrolled Status: Acute Plan: RESUME HOME MEDICATIONS, BUT HOLD HCTZ, ADD LISINOPRIL 10MG PO HS
[2022-01-11] MEDS ORDERED: ALLEGRA ONE (20:34)
[2022-01-11] MEDS ORDERED: ZESTRIL TAB 10 MG PO SCH (21:00)
[2022-01-11] MEDS ORDERED: MOBIC TAB 15 MG PO SCH (21:00)
[2022-01-11] MEDS: ALLEGRA PO SCH (21:46)
[2022-01-11] MEDS: SNACK - Diabetic Appropriate PO SCH (21:46)
[2022-01-11] MEDS: CRESTOR TAB 10 MG PO SCH (21:49)
[2022-01-11] MEDS: ZINC SULFATE PO SCH (21:49)
[2022-01-12] MEDS: NS 1,000 ML IV 1,000 ML IV SCH ×6 (00:27→18:28)
[2022-01-12] MEDS: DUONEB 0.5 MG/3 MG (3 mL) NEB SCH ×6 (01:37→21:43)
[2022-01-12 05:42] LABS: BASOPHILS % (AUTO) 0 % (0.2-1.0); HEMATOCRIT 26.4 % (36.0-47.0); HEMOGLOBIN 9.4 g/dL (12.0-16.0); LYMPHOCYTES # (AUTO) 0.7 X10^3/uL (1.3-2.9); LYMPHOCYTES % (AUTO) 5.5 % (21.0-51.0); MEAN CORPUSCULAR HEMOGLOBIN 29.7 pg (27.0-34.0); MEAN CORPUSCULAR HGB CONC 35.4 g/dL (33.0-35.0); MEAN PLATELET VOLUME 7.8 fL (7.4-11.0); MONOCYTES # (AUTO) 0.5 x10^3/uL (0.3-0.8); MONOCYTES % (AUTO) 4.4 % (0.0-13.0); NEUTROPHILS # (AUTO) 11.3 x10^3/uL (2.2-4.8); NEUTROPHILS % (AUTO) 90.1 % (42.0-75.0); RED BLOOD COUNT 3.15 X10^6/uL (3.5-5.4); RED CELL DISTRIBUTION WIDTH 14.1 % (11.6-16.5); WHITE BLOOD COUNT 12.5 X10^3/uL (3.6-10.0)
--- NOTE | 2022-01-12 05:55 | RAD ---
HISTORYF/U SOB; COPD EXACERBATION Relevant Clinical InformationSTUDYCHEST, 1 [id number]/28/2022FINDINGSThe trachea is midline. The cardiac silhouette is stable. Chronic interstitial lung changes are again noted. There is blunting of the costophrenic angles due to small effusion. No pneumothorax. The bony thorax is unremarkable.IMPRESSIONSmall bilateral pleural effusions.Chronic interstitial lung changes noted..Electronically signed by: Donato Feldman (Jan 12, 2022 05:54:56)
[2022-01-12 05:58] LABS: ALANINE AMINOTRANSFERASE 20 Units/L (12-78); ALBUMIN 2.7 g/dL (3.4-5.0); ALKALINE PHOSPHATASE 49 Units/L (46-116); ASPARTATE AMINO TRANSFERASE 21 Units/L (15-37); BLOOD UREA NITROGEN 18 mg/dL (7-18); CALCIUM 7.9 mg/dL (8.5-10.1); CARBON DIOXIDE 23.3 mmol/L (21-32); CHLORIDE 101 mmol/L (98-107); COR CA(FOR HYPOALB) 8.9 mg/dL (8.5-10.1); COR NA(FOR HYPERGLY) 135 mmol/L (136-145); CREATININE 0.75 mg/dL (0.55-1.02); SODIUM 133 mmol/L (136-145); TOTAL PROTEIN 6.1 g/dL (6.4-8.2); eGFR NON BLACK RACES > 60 (>60)
[2022-01-12] MEDS: SOLU-Medrol 40 MG VIAL IVP SCH ×3 (05:59→22:27)
[2022-01-12 06:37] LABS: PLATELET MORPHOLOGY COMMENT NORMAL (NORMAL)
[2022-01-12] MEDS ORDERED: NEURONTIN CAP 100 MG PO SCH (07:07)
[2022-01-12] MEDS ORDERED: GLUCOPHAGE ONE ×2 (07:39→20:14)
[2022-01-12] MEDS: LOVAZA PO SCH ×2 (08:05→21:23)
[2022-01-12] MEDS: ASPIRIN EC 81 MG PO SCH (08:06)
[2022-01-12] MEDS: AMARYL TAB 4 MG PO SCH (08:06)
[2022-01-12] MEDS: ZETIA TAB 10 MG PO SCH (08:06)
[2022-01-12] MEDS: PriLOSEC PO SCH (08:06)
[2022-01-12] MEDS: GLUCOPHAGE PO SCH ×2 (08:06→21:23)
[2022-01-12] MEDS: COREG TAB 25 MG PO SCH ×2 (08:06→21:22)
[2022-01-12] MEDS: TAB-A-VITE PO SCH (08:06)
[2022-01-12] MEDS: ALBUMIN HUMAN 25%- 100 ML 100 ML IV SCH (08:07)
[2022-01-12] MEDS: VITAMIN D3 125 mcg (5,000 UNITS) PO SCH (08:07)
[2022-01-12] MEDS: ROCEPHIN VIAL 1 GRAM 1 G in NS 100 ML IV 100 ML IV SCH (08:12)
[2022-01-12] MEDS: PULMICORT NEB TX 0.5 MG NEB SCH ×2 (09:00→21:43)
[2022-01-12] MEDS: LOVENOX INJ 40 MG SYR SC SCH (09:58)
[2022-01-12] MEDS: ZESTRIL TAB 10 MG PO SCH ×2 (11:00→21:00)
[2022-01-12] MEDS: NovoLIN R (or HumuLIN R) SC PRN ×2 (12:17→22:01)
[2022-01-12] MEDS: NORVASC TAB 10 MG PO SCH (12:17)
[2022-01-12] MEDS: NEURONTIN CAP 100 MG PO SCH ×2 (13:53→21:23)
[2022-01-12] MEDS ORDERED: ALLEGRA ONE (20:13)
[2022-01-12] MEDS: SNACK - Diabetic Appropriate PO SCH (20:19)
[2022-01-12] MEDS ORDERED: LASIX IVP ONE ×2 (21:12→21:14)
[2022-01-12] MEDS: ALLEGRA PO SCH (21:22)
[2022-01-12] MEDS: CRESTOR TAB 10 MG PO SCH (21:22)
[2022-01-12] MEDS: ZINC SULFATE PO SCH (21:25)
[2022-01-13] MEDS: DUONEB 0.5 MG/3 MG (3 mL) NEB SCH ×6 (00:27→21:37)
[2022-01-13] MEDS: NS 1,000 ML IV 1,000 ML IV SCH ×4 (03:05→18:08)
--- NOTE | 2022-01-13 06:07 | RAD ---
HISTORYFollow-up COPD, shortness of breathSTUDYChest AP [id number]/29/2022FINDINGSThe heart is upper limits normal in size. The jacquie are normal. Aorta is calcified. Lungs are generally hyperinflated. Chronic appearing interstitial lung changes are press bilaterally right greater than left unchanged. There is now diffuse ground-glass infiltrate in the lower 2/3 of the right lung superimposed on the more chronic interstitial lung changes. Blunting of the costophrenic angle suggests small pleural effusions. Bony thorax is unremarkable.IMPRESSIONNew ground-glass infiltrate lower 2/3 right lung superimposed on the previously present mild chronic interstitial lung changesBilateral small pleural effusions unchanged on the right and new on the leftElectronically signed by: SYLVAIN THOMPSON (Jan 13, 2022 06:05:15)
[2022-01-13] MEDS: NEURONTIN CAP 100 MG PO SCH ×3 (06:08→22:31)
[2022-01-13] MEDS: SOLU-Medrol 40 MG VIAL IVP SCH ×3 (06:08→22:30)
[2022-01-13] MEDS ORDERED: DUONEB 0.5 MG/3 MG (3 mL) NEB ONE (06:09)
[2022-01-13 06:11] LABS: BASOPHILS % (AUTO) 0.1 % (0.2-1.0); HEMATOCRIT 27.1 % (36.0-47.0); HEMOGLOBIN 9.4 g/dL (12.0-16.0); LYMPHOCYTES # (AUTO) 0.9 X10^3/uL (1.3-2.9); LYMPHOCYTES % (AUTO) 7.3 % (21.0-51.0); MEAN CORPUSCULAR HEMOGLOBIN 29.4 pg (27.0-34.0); MEAN CORPUSCULAR HGB CONC 34.6 g/dL (33.0-35.0); MEAN CORPUSCULAR VOLUME 84.9 fL (80.0-100.0); MONOCYTES # (AUTO) 0.7 x10^3/uL (0.3-0.8); MONOCYTES % (AUTO) 5.4 % (0.0-13.0); NEUTROPHILS # (AUTO) 10.5 x10^3/uL (2.2-4.8); NEUTROPHILS % (AUTO) 87.2 % (42.0-75.0); RED BLOOD COUNT 3.19 X10^6/uL (3.5-5.4); RED CELL DISTRIBUTION WIDTH 13.7 % (11.6-16.5)
[2022-01-13 06:26] LABS: ALANINE AMINOTRANSFERASE 17 Units/L (12-78); ALBUMIN 2.9 g/dL (3.4-5.0); ALKALINE PHOSPHATASE 52 Units/L (46-116); ASPARTATE AMINO TRANSFERASE 19 Units/L (15-37); BLOOD UREA NITROGEN 20 mg/dL (7-18); CALCIUM 7.8 mg/dL (8.5-10.1); CARBON DIOXIDE 23.8 mmol/L (21-32); CHLORIDE 101 mmol/L (98-107); COR CA(FOR HYPOALB) 8.7 mg/dL (8.5-10.1); COR NA(FOR HYPERGLY) 136 mmol/L (136-145); CREATININE 0.88 mg/dL (0.55-1.02); SODIUM 135 mmol/L (136-145); TOTAL PROTEIN 6.1 g/dL (6.4-8.2); eGFR NON BLACK RACES > 60 (>60)
[2022-01-13] MEDS: MAGNESIUM SULFATE 1 GRAM/100 mL PREMIX 1 G/100 ML BAG IV PRN ×4 (07:22→12:00)
[2022-01-13] MEDS ORDERED: GLUCOPHAGE ONE ×2 (07:42→21:00)
[2022-01-13] MEDS: PULMICORT NEB TX 0.5 MG NEB SCH ×2 (08:47→21:37)
[2022-01-13] MEDS: LOVENOX INJ 40 MG SYR SC SCH ×2 (09:00→09:55)
[2022-01-13] MEDS ORDERED: ZESTRIL TAB 20 MG ONE ×2 (09:31→21:01)
[2022-01-13] MEDS ORDERED: NS 100 ML IV 100 ML ONE (09:43)
[2022-01-13] MEDS: AMARYL TAB 4 MG PO SCH (09:54)
[2022-01-13] MEDS: ALBUMIN HUMAN 25%- 100 ML 100 ML IV SCH (09:54)
[2022-01-13] MEDS: COREG TAB 25 MG PO SCH ×2 (09:54→22:33)
[2022-01-13] MEDS: ASPIRIN EC 81 MG PO SCH (09:54)
[2022-01-13] MEDS: GLUCOPHAGE PO SCH ×2 (09:55→22:32)
[2022-01-13] MEDS: LOVAZA PO SCH ×2 (09:55→22:32)
[2022-01-13] MEDS: VITAMIN D3 125 mcg (5,000 UNITS) PO SCH (09:56)
[2022-01-13] MEDS: TAB-A-VITE PO SCH (09:56)
[2022-01-13] MEDS: PriLOSEC PO SCH (09:56)
[2022-01-13] MEDS: ROCEPHIN VIAL 1 GRAM 1 G in NS 100 ML IV 100 ML IV SCH (09:56)
[2022-01-13] MEDS: ZESTRIL TAB 20 MG PO SCH ×2 (09:57→22:30)
[2022-01-13] MEDS: ZETIA TAB 10 MG PO SCH (09:57)
[2022-01-13] MEDS: K-DUR TAB 20 MEQ PO PRN (10:55)
--- NOTE | 2022-01-13 11:02 | CT ---
HISTORYSOB, HYPOXIASTUDYCHEST WITH CONCOMPARISONChest radiograph 01/13/2022TECHNIQUEMultiple CT axial images of the chest were obtained with IV contrast. Coronal and sagittal images were reconstructed. Dose reduction techniques included Automated Exposure Control (AEC) and adjustment of mA and kV.FINDINGSCardiomegaly is present.Atherosclerotic calcification is present in the coronary arteries.The pulmonary artery and aorta have a normal caliber. Mediastinal lymphadenopathy is present, seen in the sub carinal space, precarinal space and paratracheal space. Right hilar lymphadenopathy is also noted. There are smaller left hilar lymph nodes.The thyroid has a normal size and configuration. No axillary mass or significant axillary lymphadenopathy is identified. Dense fibroglandular tissue noted in the breast tissue. Recommend correlation with patient's mammography.Small bilateral pleural effusions are present.There are emphysematous changes. Mostly centrilobular type. Patchy small bilateral areas of ground-glass opacity are noted consistent with bronchopneumonia. There is more involvement of the right lung than the left. Superimposed areas of atelectasis noted in the lower lungs.Limited views of the upper abdomen show no significant abnormality.Degenerative changes are present in the spine.IMPRESSION1. Bronchopneumonia with reactive lymphadenopathy and pleural effusions2. Emphysema with basilar atelectasis3. Cardiomegaly with CADElectronically signed by: Nathan Zavala (Jan 13, 2022 11:01:19)
[2022-01-13] MEDS: NORVASC TAB 10 MG PO SCH (12:26)
[2022-01-13] MEDS: NovoLIN R (or HumuLIN R) SC PRN ×3 (13:25→22:00)
[2022-01-13] MEDS: FORTAZ or TAZICEF VIAL INJ 1 G in NS 100 ML IV 100 ML IV SCH ×2 (14:43→22:30)
[2022-01-13] MEDS: LEVAQUIN PREMIX IV 500 MG 500 MG/100 ML BAG IV SCH (14:43)
[2022-01-13] MEDS ORDERED: LASIX IVP ONE (16:52)
[2022-01-13] MEDS: SNACK - Diabetic Appropriate PO SCH (20:30)
[2022-01-13] MEDS ORDERED: ALLEGRA ONE (21:00)
[2022-01-13] MEDS: ALLEGRA PO SCH (22:30)
[2022-01-13] MEDS: ZINC SULFATE PO SCH (22:31)
[2022-01-13] MEDS: CRESTOR TAB 10 MG PO SCH (22:32)
--- NOTE | 2022-01-13 22:56 | PCM.PROG ---
Progress Note - Progress Note for Day of Date of Exam: 01/12/22 - Subjective Subjective: IS CURRENTLY INPATIENT STATUS FOR TREATMENT OF HYPONATREMIA, COPD EXACERBATION, RSV, AND HYPOXIA. TODAY, SHE IS ALERT AND ORIENTED, LYING IN BED ON MORNING ROUNDS. SHE CONTINUES WITH COMPLAINTS OF WEAKNESS, COUGH, AND SHORTNESS OF BREATH. COUGH HAS BEEN PRODUCTIVE THIS MORNING. SHE IS CURRENTLY UTILIZING OXYGEN VIA NASAL CANNULA AT 3-4 LPM. SATURATIONS HAVE BEEN AROUND 90-91% THROUGHOUT THE NIGHT. SHE DENIES SIGNIFICANT IMPROVEMENT IN SYMPTOMS SINCE YESTERDAY. ON EXAMINATION, HEART IS REGULAR IN RATE AND RHTYHM. BILATERAL LUNGS ARE NOTED WITH EXPIRATORY WHEEZING THROUGHOUT. ABDOMEN IS ROUND, SOFT, AND NON-TENDER WITH NORMAL BOWEL SOUNDS NOTED IN ALL QUADRANTS. NO UPPER OR LOWER EXTREMITY IS NOTED. HER VITALS THIS MORNING WERE: 97.5-100-20-94%-177/80. LABS WERE OBTAINED. WBC 12.5, RBC 3.15, HGB 9.4, HCT 26.4, PLT COUNT 252, SODIUM 133, POTASSIUM 3.6, CHLORIDE 101, BUN 18, CREATINE 0.75, CALCIUM 7.9, TOTAL PROTEIN 6.1, ALBUMIN 2.7. BLOOD AND SPUTUM CULTURES ARE PENDING. A CHEST XRAY WAS OBTAINED AND REVEALED: The trachea is midline. The cardiac silhouette is stable. Chronic interstitial lung changes are again noted. There is blunting of the costophrenic angles due to small effusion. No pneumothorax. The bony thorax is unremarkable.SHE IS CURRENTLY RECEIVING NORMAL SALINE AT 125 ML/HR, DUONEBS Q4H, PULMICORT NEBS BID, ROCEPHIN 1G IV DAILY, SOLU-MEDROL 40MG IV Q8H, LISINOPRIL 10MG PO DAILY, OTBS ACHS, HUMULIN R SLIDING SCALE, THE POTASSIUM AND MAGNESIUM PROTOCOLS, ZOFRAN 4MG IV Q6H PRN, AND HER HOME MEDICATIONS WERE RESUMED. WE WILL CONTINUE WITH CURRENT PLAN OF CARE TODAY AND INCREASE LISINOPRIL TO 10MG PO BID DUE TO PERSISTENTLY ELEVATED BLOOD PRESSURE. WE ARE HOLDING HER HCTZ, WHICH HIS LIKELY THE CAUSE OF THE LOW SODIUM. OTHERWISE, WE WILL FOLLOW-UP WITH AM LABS AND CHEST XRAY AND CONTINUE TO MONITOR. TIME SPENT ON CLINICAL ASSESSMENT, REVIEWING LABS AND IMAGING, DECISION MAKING, AND DOCUMENTATION GREATER THAN 45 MINUTES. - Past Medical Family Social History Past Med/Fam/Surg Hx: No changes since H&P Allergies: Allergies cyclobenzaprine [From Flexeril] Allergy (Verified 01/09/22 01:15) - Review of Systems ROS: No change since H&P - Vital Signs and I&O's Vital Signs: Temperature 97.7 F Pulse Rate [Right Radial] 104 Pulse Rate 91 Respiratory Rate 22 Blood Pressure [Right Arm] 152/67 Blood Pressure 173/75 O2 Sat by Pulse Oximetry 97 Intake and Output: Intake & Output 01/11/22 01/12/22 01/13/22 01/14/22 11:59 11:59 11:59 11:59 Intake Total 4387 / 4387 4784 / 4784 3508 / 3508 1717 / 1717 Balance 4387 / 4387 4784 / 4784 3508 / 3508 1717 / 1717 - Physical Exam Oriented: Normal Eyes: Normal Ear: Normal Nose: Normal Throat: Normal Respiratory: Generalized, Diminished, Wheezes Cardiovascular: Normal : Normal Auscultation: Bowel Sounds: Normal Palpation: Normal Tenderness: Normal Skin: Normal Musculoskeletal: Normal Psychiatric: Normal Mood Description: Calm Affect: Normal Speech Pattern: Clear, Appropriate - Laboratory and Diagnostics Result Diagrams: 01/13/22 05:34 01/13/22 05:34 Labs: 01/11/22 15:19 Sputum - Expectorated Sputum Sputum Culture - Preliminary 01/11/22 15:19 Sputum - Expectorated Sputum - Final Laboratory WBC 12.0 X10^3/uL (3.6-10.0) H 01/13/22 05:34 RBC 3.19 X10^6/uL (3.5-5.4) L 01/13/22 05:34 Hgb 9.4 g/dL (12.0-16.0) L 01/13/22 05:34 Hct 27.1 % (36.0-47.0) L 01/13/22 05:34 MCV 84.9 fL (80.0-100.0) 01/13/22 05:34 MCH 29.4 pg (27.0-34.0) 01/13/22 05:34 MCHC 34.6 g/dL (33.0-35.0) 01/13/22 05:34 RDW 13.7 % (11.6-16.5) 01/13/22 05:34 Plt Count 242 X10^3/uL (150.0-450.0) 01/13/22 05:34 Plt Count Comment Adequate (ADEQUATE) 01/12/22 05:20 MPV 8.0 fL (7.4-11.0) 01/13/22 05:34 Neut % (Auto) 87.2 % (42.0-75.0) H 01/13/22 05:34 Lymph % (Auto) 7.3 % (21.0-51.0) L 01/13/22 05:34 [place] % (Auto) 5.4 % (0.0-13.0) 01/13/22 05:34 Eos % (Auto) 0.0 % (0.9-2.9) L 01/13/22 05:34 Baso % (Auto) 0.1 % (0.2-1.0) L 01/13/22 05:34 Neut # (Auto) 10.5 x10^3/uL (2.2-4.8) H 01/13/22 05:34 Lymph # (Auto) 0.9 X10^3/uL (1.3-2.9) L 01/13/22 05:34 [place] # (Auto) 0.7 x10^3/uL (0.3-0.8) 01/13/22 05:34 Eos # (Auto) 0.0 x10^3/uL (0.0-0.2) 01/13/22 05:34 Baso # (Auto) 0.0 X10^3/uL (0.0-0.1) 01/13/22 05:34 Absolute Nucleated RBC 0.2 /100WBC 01/13/22 05:34 Total Counted 100 01/12/22 05:20 Neutrophils % (Manual) 93 % (39-76) H 01/12/22 05:20 Lymphocytes % (Manual) 4 % (13-43) L 01/12/22 05:20 Monocytes % (Manual) 3 % (4-9) L 01/12/22 05:20 Plt Morphology Comment Normal (NORMAL) 01/12/22 05:20 RBC Morphology Normal (NORMAL) 01/12/22 05:20 PT 13.9 SECONDS (11.8-14.3) 01/09/22 04:30 INR Target Range - 01/09/22 04:30 INR 1.11 (0.8-1.3) 01/09/22 04:30 APTT 31.3 SECONDS (22.9-36.5) 01/09/22 04:30 PTT Comment - 01/09/22 04:30 Sample Site Lr 01/09/22 00:23 ABG pH 7.390 (7.35-7.45) 01/09/22 00:23 ABG pCO2 40.0 mmHg (35.0-45.0) 01/09/22 00:23 ABG pO2 57.0 mmHg (80.0-100.0) L 01/09/22 00:23 ABG HCO3 24.2 mmol/L (22-26) 01/09/22 00:23 ABG O2 Saturation 89.0 % (90-100) L 01/09/22 00:23 ABG Base Excess -0.7 mmol/L (-2.0-2.0) 01/09/22 00:23 [place] Test Pos 01/09/22 00:23 A-a Gradient 150.0 mmHg 01/09/22 00:23 FiO2 36.0 01/09/22 00:23 Blood Gas Comments Lee well ae 01/09/22 00:23 Sodium 135 mmol/L (136-145) L 01/13/22 05:34 Corrected Sodium 136 mmol/L (136-145) 01/13/22 05:34 Potassium 3.1 mmol/L (3.5-5.1) L 01/13/22 05:34 Chloride 101 mmol/L (98-107) 01/13/22 05:34 Carbon Dioxide 23.8 mmol/L (21-32) 01/13/22 05:34 BUN 20 mg/dL (7-18) H 01/13/22 05:34 Creatinine 0.88 mg/dL (0.55-1.02) 01/13/22 05:34 Est GFR (MDRD) Af Amer > 60 (>60) 01/13/22 05:34 Est GFR (MDRD) Non-Af > 60 (>60) 01/13/22 05:34 Glucose 147 mg/dL (65-99) H 01/13/22 05:34 POC Glucose (mg/dL) 224 mg/dL (65-99) H 01/13/22 21:53 Calcium 7.8 mg/dL (8.5-10.1) L 01/13/22 05:34 Corrected Calcium 8.7 mg/dL (8.5-10.1) 01/13/22 05:34 Magnesium 1.4 mg/dL (1.7-2.9) L 01/13/22 05:34 Total Bilirubin 0.30 mg/dL (0.2-1.0) 01/13/22 05:34 AST 19 Units/L (15-37) 01/13/22 05:34 ALT 17 Units/L (12-78) 01/13/22 05:34 Alkaline Phosphatase 52 Units/L (46-116) 01/13/22 05:34 Creatine Kinase 410 Units/L (26-192) H 01/09/22 11:30 CK-MB (CK-2) 7.8 ng/mL (0-4.0) H 01/09/22 11:30 CK/CKMB % Calc 1.9 % (<4) 01/09/22 11:30 Troponin I High Sens 41.4 ng/L (4.0-60.0) 01/09/22 11:30 B-Natriuretic Peptide 748 pg/mL (0-79) H* 01/13/22 17:00 Total Protein 6.1 g/dL (6.4-8.2) L 01/13/22 05:34 Albumin 2.9 g/dL (3.4-5.0) L 01/13/22 05:34 Globulin 3.2 g/dL (2.5-4.5) 01/13/22 05:34 Albumin/Globulin Ratio 0.9 Ratio (1.1-2.1) L 01/13/22 05:34 Specimen Type Random urine 01/09/22 09:30 Urine Color Straw (YELLOW) 01/09/22 09:30 Urine Appearance Clear (CLEAR) 01/09/22 09:30 Urine pH 6.0 (5.0 - 8.0) 01/09/22 09:30 Ur Specific [place] 1.010 (1.000-1.030) 01/09/22 09:30 Urine Protein 3+ (NEGATIVE) 01/09/22 09:30 Urine Glucose (UA) 1+ (NEGATIVE) 01/09/22 09:30 Urine Ketones Negative (NEGATIVE) 01/09/22 09:30 Urine Blood 2+ (NEGATIVE) 01/09/22 09:30 Urine Nitrite Negative (NEGATIVE) 01/09/22 09:30 Urine Bilirubin Negative (NEGATIVE) 01/09/22 09:30 Urine Urobilinogen Normal (NORMAL) 01/09/22 09:30 Ur Leukocyte Esterase Negative (NEGATIVE) 01/09/22 09:30 Urine RBC 0-2 /HPF (0-3) 01/09/22 09:30 Urine WBC 0-2 /HPF (0-5) 01/09/22 09:30 Ur Squamous Epith Cells Few /HPF (NEGATIVE) 01/09/22 09:30 Urine Bacteria Negative /HPF (NEGATIVE) 01/09/22 09:30 Hyaline Casts Few /LPF (NEGATIVE) 01/09/22 09:30 Urine Mucus Rare /HPF (NEGATIVE) 01/09/22 09:30 Ur Culture Indicated? No/not indicated 01/09/22 09:30 SARS-CoV-2 (PCR) Negative (NEGATIVE) 01/09/22 00:30 Influenza Type A (PCR) Negative (NEGATIVE) 01/09/22 00:30 Influenza Type B (PCR) Negative (NEGATIVE) 01/09/22 00:30 RSV (PCR) Positive (NEGATIVE) A 01/09/22 00:30 - Plan (1) Acute hyponatremia Status: Acute Plan: SUPPLEMENTAL OXYGEN, NORMAL SALINE AT 125 ML/HR, DUONEBS Q4H, PULMICORT NEBS BID, ROCEPHIN 1G IV DAILY, SOLU-MEDROL 40MG IV Q8H, OTBS ACHS, HUMULIN R SLIDING SCALE, LINSINOPRIL 10MG PO HS, THE POTASSIUM AND MAGNESIUM PROTOCOLS, ZO ERNESTINE 4MG IV Q6H PRN, AND HER HOME MEDICATIONS WERE RESUMED. (2) COPD exacerbation Status: Acute (3) RSV infection Status: Acute (4) Hypoxia Status: Acute (5) Hypertension, uncontrolled Status: Acute Plan: RESUME HOME MEDICATIONS, BUT HOLD HCTZ, ADD LISINOPRIL 10MG PO BID
[2022-01-14] MEDS: DUONEB 0.5 MG/3 MG (3 mL) NEB SCH ×6 (00:40→21:29)
[2022-01-14 05:12] LABS: ALANINE AMINOTRANSFERASE 16 Units/L (12-78); ALBUMIN 2.9 g/dL (3.4-5.0); ALKALINE PHOSPHATASE 42 Units/L (46-116); ASPARTATE AMINO TRANSFERASE 13 Units/L (15-37); BASOPHILS % (AUTO) 0.1 % (0.2-1.0); BLOOD UREA NITROGEN 22 mg/dL (7-18); CALCIUM 7.9 mg/dL (8.5-10.1); CARBON DIOXIDE 29.1 mmol/L (21-32); CHLORIDE 99 mmol/L (98-107); COR CA(FOR HYPOALB) 8.8 mg/dL (8.5-10.1); COR NA(FOR HYPERGLY) 137 mmol/L (136-145); CREATININE 0.85 mg/dL (0.55-1.02); HEMOGLOBIN 8.8 g/dL (12.0-16.0); LYMPHOCYTES # (AUTO) 0.8 X10^3/uL (1.3-2.9); LYMPHOCYTES % (AUTO) 8.1 % (21.0-51.0); MEAN CORPUSCULAR HEMOGLOBIN 29.6 pg (27.0-34.0); MEAN CORPUSCULAR HGB CONC 35.2 g/dL (33.0-35.0); MEAN PLATELET VOLUME 8.1 fL (7.4-11.0); MONOCYTES # (AUTO) 0.5 x10^3/uL (0.3-0.8); NEUTROPHILS # (AUTO) 8.7 x10^3/uL (2.2-4.8); NEUTROPHILS % (AUTO) 86.8 % (42.0-75.0); RED BLOOD COUNT 2.98 X10^6/uL (3.5-5.4); RED CELL DISTRIBUTION WIDTH 14.2 % (11.6-16.5); SODIUM 135 mmol/L (136-145); TOTAL PROTEIN 5.7 g/dL (6.4-8.2); eGFR NON BLACK RACES > 60 (>60)
--- NOTE | 2022-01-14 06:03 | RAD ---
HISTORYShortness of breathSTUDYChest AP [id number]/30/2022 chest x-ray and CT chestFINDINGSThe heart remains upper limits normal in size. The jacquie are normal. Aorta is calcified. Lungs are generally hyperinflated. Chronic interstitial lung changes are present bilaterally right greater than left. Diffuse ground-glass infiltrates are superimposed on the interstitial lung disease throughout the right lung most prominent in the right upper lobe and unchanged. Blunting of the costophrenic angle suggests pleural effusions. Bony thorax is unremarkable.IMPRESSIONNo significant change when compared with the prior examinationElectronically signed by: SYLVAIN THOMPSON (Jan 14, 2022 06:02:36)
[2022-01-14] MEDS: NS 1,000 ML IV 1,000 ML IV SCH (06:14)
[2022-01-14] MEDS: K-DUR TAB 20 MEQ PO PRN ×3 (06:15→22:49)
[2022-01-14] MEDS: FORTAZ or TAZICEF VIAL INJ 1 G in NS 100 ML IV 100 ML IV SCH ×3 (06:16→21:59)
[2022-01-14] MEDS: SOLU-Medrol 40 MG VIAL IVP SCH ×3 (06:16→21:56)
[2022-01-14] MEDS: NEURONTIN CAP 100 MG PO SCH ×3 (06:16→22:05)
[2022-01-14] MEDS: NovoLIN R (or HumuLIN R) SC PRN ×4 (07:07→21:53)
[2022-01-14] MEDS ORDERED: GLUCOPHAGE ONE ×2 (07:12→20:46)
[2022-01-14] MEDS ORDERED: ZESTRIL TAB 20 MG ONE ×2 (07:13→20:47)
[2022-01-14] MEDS: ALBUMIN HUMAN 25%- 100 ML 100 ML IV SCH (08:54)
[2022-01-14] MEDS: LOVENOX INJ 40 MG SYR SC SCH ×2 (08:55→09:13)
[2022-01-14] MEDS: ZESTRIL TAB 20 MG PO SCH ×2 (08:55→22:01)
[2022-01-14] MEDS: GLUCOPHAGE PO SCH ×3 (08:56→22:03)
[2022-01-14] MEDS: AMARYL TAB 4 MG PO SCH (08:56)
[2022-01-14] MEDS: ASPIRIN EC 81 MG PO SCH (08:57)
[2022-01-14] MEDS: COREG TAB 25 MG PO SCH ×2 (08:57→22:01)
[2022-01-14] MEDS: LEVAQUIN PREMIX IV 500 MG 500 MG/100 ML BAG IV SCH (08:58)
[2022-01-14] MEDS: NS + KCL 40 MEQ/L 1,000 ML IV SCH ×2 (09:00→22:05)
[2022-01-14] MEDS: TAB-A-VITE PO SCH (09:01)
[2022-01-14] MEDS: PriLOSEC PO SCH (09:01)
[2022-01-14] MEDS: VITAMIN D3 125 mcg (5,000 UNITS) PO SCH (09:01)
[2022-01-14] MEDS: LOVAZA PO SCH ×2 (09:01→22:02)
[2022-01-14] MEDS: ZETIA TAB 10 MG PO SCH (09:02)
[2022-01-14] MEDS: LASIX IVP SCH (09:05)
[2022-01-14] MEDS: PULMICORT NEB TX 0.5 MG NEB SCH ×2 (10:00→21:29)
[2022-01-14] MEDS: NORVASC TAB 10 MG PO SCH (13:00)
--- NOTE | 2022-01-14 16:38 | PCM.PROG ---
Progress Note - Progress Note for Day of Date of Exam: 01/13/22 - Subjective Subjective: IS CURRENTLY INPATIENT STATUS FOR TREATMENT OF HYPONATREMIA, COPD EXACERBATION, RSV, AND HYPOXIA. TODAY, SHE IS ALERT AND ORIENTED, SITTING UP IN BED ON MORNING ROUNDS. SHE CONTINUES WITH COMPLAINTS OF COUGH AND SHORTNESS OF BREATH. COUGH HAS BEEN PRODUCTIVE THIS MORNING. SHE IS CURRENTLY UTILIZING OXYGEN VIA NASAL CANNULA AT 3-4 LPM. SATURATIONS HAVE BEEN AROUND 91-94% THROUGHOUT THE NIGHT AND THIS MORNING. SHE REPORTS THAT SHORTNESS OF BREATH IS SLIGHTLY WORSE TODAY. ON EXAMINATION, HEART IS REGULAR IN RATE AND RHTYHM. BILATERAL LUNGS ARE NOTED WITH EXPIRATORY WHEEZING THROUGHOUT. ABDOMEN IS ROUND, SOFT, AND NON-TENDER WITH NORMAL BOWEL SOUNDS NOTED IN ALL QUADRANTS. NO UPPER OR LOWER EXTREMITY IS NOTED. HER VITALS THIS MORNING WERE: 97.9-96-20-93%-176/78. LABS WERE OBTAINED. WBC 12.0, RBC 3.19, HGB 9.4, HCT 27.1, PLT COUNT 242, SODIUM 135, POTASSIUM 3.1, BUN 20, CREATININE 0.88, GLUCOSE 147, CALCIUM 7.8, MAGNESIUM 1.4, AST 19, ALT 17, ALK PHOS 52, BNP 748, TOTAL PRO TEIN 6.1, ALBUMIN 2.9. BLOOD AND SPUTUM CULTURES ARE PENDING. A CHEST XRAY WAS OBTAINED AND REVEALED: New ground-glass infiltrate lower 2/3 right lung superimposed on the previously present mild chronic interstitial lung changes. Bilateral small pleural effusions unchanged on the right and new on the left. SHE IS CURRENTLY RECEIVING NORMAL SALINE AT 125 ML/HR, DUONEBS Q4H, PULMICORT NEBS BID, ROCEPHIN 1G IV DAILY, SOLU-MEDROL 40MG IV Q8H, LISINOPRIL 10MG PO BID, OTBS ACHS, HUMULIN R SLIDING SCALE, THE POTASSIUM AND MAGNESIUM PROTOCOLS, ZOFRAN 4MG IV Q6H PRN, AND HER HOME MEDICATIONS WERE RESUMED. TODAY, WE WILL DISCONTINUE THE ROCEPHIN AND START LEVAQUIN 500MG IV DAILY AND FORTAZ 1G IV Q8H. WE WILL OBTAIN A CHEST CT WITH CONTRAST THIS MORNING. WE WILL DECREASE HER FLUIDS TO 50 ML/HR. WE WILL ALSO ADMINISTER LASIX 40MG IV X 1 DOSE. WE ARE HOLDING HER HCTZ, WHICH HIS LIKELY THE CAUSE OF THE LOW SODIUM. OTHERWISE, WE WILL FOLLOW-UP WITH AM LABS AND CHEST XRAY AND CONTINUE TO MONITOR. TIME SPENT ON CLINICAL ASSESSMENT, REVIEWING LABS AND IMAGING, DECISION MAKING, AND DOCUMENTATION GREATER THAN 45 MINUTES. - Past Medical Family Social History Past Med/Fam/Surg Hx: No changes since H&P Allergies: Allergies cyclobenzaprine [From Flexeril] Allergy (Verified 01/09/22 01:15) - Review of Systems ROS: No change since H&P - Vital Signs and I&O's Vital Signs: Temperature 97.8 F Pulse Rate [Right Radial] 118 Pulse Rate 98 Respiratory Rate 20 Blood Pressure [Right Arm] 166/72 Blood Pressure 173/75 O2 Sat by Pulse Oximetry 91 Intake and Output: Intake & Output 01/12/22 01/13/22 01/14/22 01/15/22 11:59 11:59 11:59 11:59 Intake Total 4784 / 4784 3508 / 3508 2056 Balance 4784 / 4784 3508 / 3508 2056 - Physical Exam Oriented: Normal Eyes: Normal Ear: Normal Nose: Normal Throat: Normal Respiratory: Generalized, Diminished, Wheezes Cardiovascular: Normal : Normal Auscultation: Bowel Sounds: Normal Palpation: Normal Tenderness: Normal Skin: Normal Musculoskeletal: Normal Psychiatric: Normal Mood Description: Calm Affect: Normal Speech Pattern: Clear, Appropriate - Laboratory and Diagnostics Result Diagrams: 01/14/22 04:25 01/14/22 15:30 Labs: 01/11/22 15:19 Sputum - Expectorated Sputum Sputum Culture - Final Acinetobacter Baumanii/Haemoly 01/11/22 15:19 Sputum - Expectorated Sputum - Final Laboratory WBC 10.0 X10^3/uL (3.6-10.0) 01/14/22 04:25 RBC 2.98 X10^6/uL (3.5-5.4) L 01/14/22 04:25 Hgb 8.8 g/dL (12.0-16.0) L 01/14/22 04:25 Hct 25.0 % (36.0-47.0) L 01/14/22 04:25 MCV 84.0 fL (80.0-100.0) 01/14/22 04:25 MCH 29.6 pg (27.0-34.0) 01/14/22 04:25 MCHC 35.2 g/dL (33.0-35.0) H 01/14/22 04:25 RDW 14.2 % (11.6-16.5) 01/14/22 04:25 Plt Count 240 X10^3/uL (150.0-450.0) 01/14/22 04:25 Plt Count Comment Adequate (ADEQUATE) 01/12/22 05:20 MPV 8.1 fL (7.4-11.0) 01/14/22 04:25 Neut % (Auto) 86.8 % (42.0-75.0) H 01/14/22 04:25 Lymph % (Auto) 8.1 % (21.0-51.0) L 01/14/22 04:25 [place] % (Auto) 5.0 % (0.0-13.0) 01/14/22 04:25 Eos % (Auto) 0.0 % (0.9-2.9) L 01/14/22 04:25 Baso % (Auto) 0.1 % (0.2-1.0) L 01/14/22 04:25 Neut # (Auto) 8.7 x10^3/uL (2.2-4.8) H 01/14/22 04:25 Lymph # (Auto) 0.8 X10^3/uL (1.3-2.9) L 01/14/22 04:25 [place] # (Auto) 0.5 x10^3/uL (0.3-0.8) 01/14/22 04:25 Eos # (Auto) 0.0 x10^3/uL (0.0-0.2) 01/14/22 04:25 Baso # (Auto) 0.0 X10^3/uL (0.0-0.1) 01/14/22 04:25 Absolute Nucleated RBC 0.0 /100WBC 01/14/22 04:25 Total Counted 100 01/12/22 05:20 Neutrophils % (Manual) 93 % (39-76) H 01/12/22 05:20 Lymphocytes % (Manual) 4 % (13-43) L 01/12/22 05:20 Monocytes % (Manual) 3 % (4-9) L 01/12/22 05:20 Plt Morphology Comment Normal (NORMAL) 01/12/22 05:20 RBC Morphology Normal (NORMAL) 01/12/22 05:20 PT 13.9 SECONDS (11.8-14.3) 01/09/22 04:30 INR Target Range - 01/09/22 04:30 INR 1.11 (0.8-1.3) 01/09/22 04:30 APTT 31.3 SECONDS (22.9-36.5) 01/09/22 04:30 PTT Comment - 01/09/22 04:30 Sample Site Lr 01/09/22 00:23 ABG pH 7.390 (7.35-7.45) 01/09/22 00: ABG pCO2 40.0 mmHg (35.0-45.0) 01/09/22 00:23 ABG pO2 57.0 mmHg (80.0-100.0) L 01/09/22 00:23 ABG HCO3 24.2 mmol/L (22-26) 01/09/22 00:23 ABG O2 Saturation 89.0 % (90-100) L 01/09/22 00:23 ABG Base Excess -0.7 mmol/L (-2.0-2.0) 01/09/22 00:23 Alcides Test Pos 01/09/22 00:23 A-a Gradient 150.0 mmHg 01/09/22 00:23 FiO2 36.0 01/09/22 00:23 Blood Gas Comments Lee well ae 01/09/22 00:23 Sodium 135 mmol/L (136-145) L 01/14/22 04:25 Corrected Sodium 137 mmol/L (136-145) 01/14/22 04:25 Potassium 2.8 mmol/L (3.5-5.1) L* 01/14/22 15:30 Chloride 99 mmol/L (98-107) 01/14/22 04:25 Carbon Dioxide 29.1 mmol/L (21-32) 01/14/22 04:25 BUN 22 mg/dL (7-18) H 01/14/22 04:25 Creatinine 0.85 mg/dL (0.55-1.02) 01/14/22 04:25 Est GFR (MDRD) Af Amer > 60 (>60) 01/14/22 04:25 Est GFR (MDRD) Non-Af > 60 (>60) 01/14/22 04:25 Glucose 171 mg/dL (65-99) H 01/14/22 04:25 POC Glucose (mg/dL) 220 mg/dL (65-99) H 01/14/22 16:28 Calcium 7.9 mg/dL (8.5-10.1) L 01/14/22 04:25 Corrected Calcium 8.8 mg/dL (8.5-10.1) 01/14/22 04:25 Magnesium 1.7 mg/dL (1.7-2.9) 01/14/22 04:25 Total Bilirubin 0.30 mg/dL (0.2-1.0) 01/14/22 04:25 AST 13 Units/L (15-37) L 01/14/22 04:25 ALT 16 Units/L (12-78) 01/14/22 04:25 Alkaline Phosphatase 42 Units/L (46-116) L 01/14/22 04:25 Creatine Kinase 410 Units/L (26-192) H 01/09/22 11:30 CK-MB (CK-2) 7.8 ng/mL (0-4.0) H 01/09/22 11:30 CK/CKMB % Calc 1.9 % (<4) 01/09/22 11:30 Troponin I High Sens 41.4 ng/L (4.0-60.0) 01/09/22 11:30 B-Natriuretic Peptide 748 pg/mL (0-79) H* 01/13/22 17:00 Total Protein 5.7 g/dL (6.4-8.2) L 01/14/22 04:25 Albumin 2.9 g/dL (3.4-5.0) L 01/14/22 04:25 Globulin 2.8 g/dL (2.5-4.5) 01/14/22 04:25 Albumin/Globulin Ratio 1.0 Ratio (1.1-2.1) L 01/14/22 04:25 Specimen Type Random urine 01/09/22 09:30 Urine Color Straw (YELLOW) 01/09/22 09:30 Urine Appearance Clear (CLEAR) 01/09/22 09:30 Urine pH 6.0 (5.0 - 8.0) 01/09/22 09:30 Ur Specific [place] 1.010 (1.000-1.030) 01/09/22 09:30 Urine Protein 3+ (NEGATIVE) 01/09/22 09:30 Urine Glucose (UA) 1+ (NEGATIVE) 01/09/22 09:30 Urine Ketones Negative (NEGATIVE) 01/09/22 09:30 Urine Blood 2+ (NEGATIVE) 01/09/22 09:30 Urine Nitrite Negative (NEGATIVE) 01/09/22 09:30 Urine Bilirubin Negative (NEGATIVE) 01/09/22 09:30 Urine Urobilinogen Normal (NORMAL) 01/09/22 09:30 Ur Leukocyte Esterase Negative (NEGATIVE) 01/09/22 09:30 Urine RBC 0-2 /HPF (0-3) 01/09/22 09:30 Urine WBC 0-2 /HPF (0-5) 01/09/22 09:30 Ur Squamous Epith Cells Few /HPF (NEGATIVE) 01/09/22 09:30 Urine Bacteria Negative /HPF (NEGATIVE) 01/09/22 09:30 Hyaline Casts Few /LPF (NEGATIVE) 01/09/22 09:30 Urine Mucus Rare /HPF (NEGATIVE) 01/09/22 09:30 Ur Culture Indicated? No/not indicated 01/09/22 09:30 SARS-CoV-2 (PCR) Negative (NEGATIVE) 01/09/22 00:30 Influenza Type A (PCR) Negative (NEGATIVE) 01/09/22 00:30 Influenza Type B (PCR) Negative (NEGATIVE) 01/09/22 00:30 RSV (PCR) Positive (NEGATIVE) A 01/09/22 00:30 - Plan (1) Acute hyponatremia Status: Acute Plan: SUPPLEMENTAL OXYGEN, NORMAL SALINE AT 50 ML/HR, DUONEBS Q4H, PULMICORT NEBS BID, LEVAQUIN 500MG IV DAILY, FORTAZ 1G IV Q8H, SOLU-MEDROL 40MG IV Q8H, OT BS ACHS, HUMULIN R SLIDING SCALE, LINSINOPRIL 10MG PO BID, THE POTASSIUM AND MAGNESIUM PROTOCOLS, ZOFRAN 4MG IV Q6H PRN, AND HER HOME MEDICATIONS WERE RESUMED. OBTAIN CHEST CT (2) COPD exacerbation Status: Acute (3) RSV infection Status: Acute (4) Hypoxia Status: Acute (5) Hypertension, uncontrolled Status: Acute Plan: RESUME HOME MEDICATIONS, BUT HOLD HCTZ, LISINOPRIL 10MG PO BID
[2022-01-14] MEDS ORDERED: LASIX IVP SCH (17:00)
[2022-01-14] MEDS: MAGNESIUM SULFATE 1 GRAM/100 mL PREMIX 1 G/100 ML BAG IV PRN ×2 (18:39→20:22)
--- NOTE | 2022-01-14 20:03 | PCM.PROG ---
Progress Note Progress Note for Day of Date of Exam: 01/14/22 Subjective Subjective: IS A 76 YEAR OLD PATIENT OF . SHE IS CURRENTLY INPATIENT STATUS FOR TREATMENT OF HYPONATREMIA, BRONCHOPNEUMONIA, COPD EXACERBATION, RSV, HYPOKALEMIA. TODAY, SHE IS ALERT AND ORIENTED, SITTING UP IN BED ON MORNING ROUNDS. SHE CONTINUES WITH COMPLAINTS OF COUGH AND SHORTNESS OF BREATH. COUGH HAS BEEN PRODUCTIVE. SHE DOES ADMIT TO SLIGHT IMPROVEMENT IN SYMPTOMS SINCE YESTERDAY. SHE IS CURRENTLY UTILIZING OXYGEN VIA NASAL CANNULA AT 3 LPM. SATURATIONS HAVE BEEN AROUND 91-95% THIS MORNING AND THROUGHOUT THE NIGHT. ON EXAMINATION, SHE IS TACHYCARDIC WITH HR 110-120. BILATERAL LUNGS ARE NOTED WITH RALES THROUGHOUT. ABDOMEN IS ROUND, SOFT, AND NON-TENDER WITH NORMAL BOWEL SOUNDS NOTED IN ALL QUADRANTS. 1+ PITTING EDEMA NOTED TO UPPER AND LOWER EXTREMITIES. HER VITALS THIS MORNING WERE: 98.2-111-20-91%-174/79. LABS WERE OBTAINED. WBC 10.0, RBC 2.98, HGB 8.8, HCT 25.0, PLT COUNT 240, SODIUM 135, POTASSIUM 2.7, CHLORIDE 99, CARBON DIOXIDE 29.1, BUN 22, CREATININE 0.85, GLUCOSE 171, CALCIUM 7.9, AST 13, ALT 16, ALK PHOS 42, TOTAL PROTEIN 5.7, ALBUMIN 2.9. BLOOD AND SPUTUM CULTURES ARE PENDING. A CHEST CT WAS OBTAINED YESTERDAY. IT REVEALED: 1. Bronchopneumonia with reactive lymphadenopathy and pleural effusions 2. Emphysema with basilar atelectasis 3. Cardiomegaly with CAD. CHEST XRAY WAS REPEATED THIS MORNING. 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 BLUNTING OF THE COSTOPHRENIC ANGLE SUGGEST PLEURAL EFFUSIONS. SHE IS CURRENTLY RECEIVING NORMAL SALINE AT 50 ML/HR, DUONEBS Q4H, PULMICORT NEBS BID, FORTAZ 1G IV Q8H, LEVAQUIN 500MG IV DAILY, SOLU-MEDROL 40MG IV Q8H, LISINOPRIL 10MG PO BID, OTBS ACHS, HUMULIN R SLIDING SCALE, THE POTASSIUM AND MAGNESIUM PROTOCOLS, ZOFRAN 4MG IV Q6H PRN, AND HER HOME MEDICATIONS WERE RESUMED. TODAY, WE WILL ADD POTASSIUM TO HER IV FLUIDS. WE WILL ALSO ADD LASIX 40MG IV DAILY AND 20MG IV AT 1700. OTHERWISE, WE WILL FOLLOW-UP WITH AM LABS AND CHEST XRAY AND CONTINUE TO MONITOR. TIME SPENT ON CLINICAL ASSESSMENT, REVIEWING LABS AND IMAGING, DECISION MAKING, AND DOCUMENTATION GREATER THAN 45 MINUTES. Past Medical Family Social History Past Med/Fam/Surg Hx: No changes since H&P Allergies: Allergies cyclobenzaprine [From Flexeril] Allergy (Verified 01/09/22 01:15) Review of Systems ROS: No change since H&P Vital Signs and I&O's Vital Signs: Temperature 97.8 F Pulse Rate [Right Radial] 118 Pulse Rate 98 Respiratory Rate 20 Blood Pressure [Right Arm] 166/72 Blood Pressure 173/75 O2 Sat by Pulse Oximetry 91 Intake and Output: Intake & Output 01/12/22 01/13/22 01/14/22 01/15/22 11:59 11:59 11:59 11:59 Intake Total 4784 / 4784 3508 / 3508 2056 720 / 720 Balance 4784 / 4784 3508 / 3508 2056 720 / 720 Physical Exam Oriented: Normal Eyes: Normal Ear: Normal Nose: Normal Throat: Normal Respiratory: Generalized, Diminished and Rales Cardiovascular: Normal : Normal Auscultation: Bowel Sounds: Normal Tenderness: Normal Skin: Normal Musculoskeletal: Normal Psychiatric: Normal Mood Description: Calm Affect: Normal Speech Pattern: Clear and Appropriate Laboratory and Diagnostics Result Diagrams: 01/14/22 04:25 01/14/22 18:25 Labs: 01/11/22 15:19 Sputum - Expectorated Sputum Sputum Culture - Final Acinetobacter Baumanii/Haemoly 01/11/22 15:19 Sputum - Expectorated Sputum - Final Laboratory WBC 10.0 X10^3/uL (3.6-10.0) 01/14/22 04:25 RBC 2.98 X10^6/uL (3.5-5.4) L 01/14/22 04:25 Hgb 8.8 g/dL (12.0-16.0) L 01/14/22 04:25 Hct 25.0 % (36.0-47.0) L 01/14/22 04:25 MCV 84.0 fL (80.0-100.0) 01/14/22 04:25 MCH 29.6 pg (27.0-34.0) 01/14/22 04:25 MCHC 35.2 g/dL (33.0-35.0) H 01/14/22 04:25 RDW 14.2 % (11.6-16.5) 01/14/22 04:25 Plt Count 240 X10^3/uL (150.0-450.0) 01/14/22 04:25 Plt Count Comment Adequate (ADEQUATE) 01/12/22 05:20 MPV 8.1 fL (7.4-11.0) 01/14/22 04:25 Neut % (Auto) 86.8 % (42.0-75.0) H 01/14/22 04:25 Lymph % (Auto) 8.1 % (21.0-51.0) L 01/14/22 04:25 [place] % (Auto) 5.0 % (0.0-13.0) 01/14/22 04:25 Eos % (Auto) 0.0 % (0.9-2.9) L 01/14/22 04:25 Baso % (Auto) 0.1 % (0.2-1.0) L 01/14/22 04:25 Neut # (Auto) 8.7 x10^3/uL (2.2-4.8) H 01/14/22 04:25 Lymph # (Auto) 0.8 X10^3/uL (1.3-2.9) L 01/14/22 04:25 [place] # (Auto) 0.5 x10^3/uL (0.3-0.8) 01/14/22 04:25 Eos # (Auto) 0.0 x10^3/uL (0.0-0.2) 01/14/22 04:25 Baso # (Auto) 0.0 X10^3/uL (0.0-0.1) 01/14/22 04:25 Absolute Nucleated RBC 0.0 /100WBC 01/14/22 04:25 Total Counted 100 01/12/22 05:20 Neutrophils % (Manual) 93 % (39-76) H 01/12/22 05:20 Lymphocytes % (Manual) 4 % (13-43) L 01/12/22 05:20 Monocytes % (Manual) 3 % (4-9) L 01/12/22 05:20 Plt Morphology Comment Normal (NORMAL) 01/12/22 05:20 RBC Morphology Normal (NORMAL) 01/12/22 05:20 PT 13.9 SECONDS (11.8-14.3) 01/09/22 04:30 INR Target Range - 01/09/22 04:30 INR 1.11 (0.8-1.3) 01/09/22 04:30 APTT 31.3 SECONDS (22.9-36.5) 01/09/22 04:30 PTT Comment - 01/09/22 04:30 Sample Site Lr 01/09/22 00:23 ABG pH 7.390 (7.35-7.45) 01/09/22 00:23 ABG pCO2 40.0 mmHg (35.0-45.0) 01/09/22 00:23 ABG pO2 57.0 mmHg (80.0-100.0) L 01/09/22 00:23 ABG HCO3 24.2 mmol/L (22-26) 01/09/22 00:23 ABG O2 Saturation 89.0 % (90-100) L 01/09/22 00:23 ABG Base Excess -0.7 mmol/L (-2.0-2.0) 01/09/22 00:23 Alcides Test Pos 01/09/22 00:23 A-a Gradient 150.0 mmHg 01/09/22 00:23 FiO2 36.0 01/09/22 00:23 Blood Gas Comments Lee well ae 01/09/22 00:23 Sodium 135 mmol/L (136-145) L 01/14/22 04:25 Corrected Sodium 137 mmol/L (136-145) 01/14/22 04:25 Potassium 2.9 mmol/L (3.5-5.1) L* 01/14/22 18:25 Chloride 99 mmol/L (98-107) 01/14/22 04:25 Carbon Dioxide 29.1 mmol/L (21-32) 01/14/22 04:25 BUN 22 mg/dL (7-18) H 01/14/22 04:25 Creatinine 0.85 mg/dL (0.55-1.02) 01/14/22 04:25 Est GFR (MDRD) Af Amer > 60 (>60) 01/14/22 04:25 Est GFR (MDRD) Non-Af > 60 (>60) 01/14/22 04:25 Glucose 171 mg/dL (65-99) H 01/14/22 04:25 POC Glucose (mg/dL) 220 mg/dL (65-99) H 01/14/22 16:28 Calcium 7.9 mg/dL (8.5-10.1) L 01/14/22 04:25 Corrected Calcium 8.8 mg/dL (8.5-10.1) 01/14/22 04:25 Magnesium 1.7 mg/dL (1.7-2.9) 01/14/22 04:25 Total Bilirubin 0.30 mg/dL (0.2-1.0) 01/14/22 04:25 AST 13 Units/L (15-37) L 01/14/22 04:25 ALT 16 Units/L (12-78) 01/14/22 04:25 Alkaline Phosphatase 42 Units/L (46-116) L 01/14/22 04:25 Creatine Kinase 410 Units/L (26-192) H 01/09/22 11:30 CK-MB (CK-2) 7.8 ng/mL (0-4.0) H 01/09/22 11:30 CK/CKMB % Calc 1.9 % (<4) 01/09/22 11:30 Troponin I High Sens 41.4 ng/L (4.0-60.0) 01/09/22 11:30 B-Natriuretic Peptide 748 pg/mL (0-79) H* 01/13/22 17:00 Total Protein 5.7 g/dL (6.4-8.2) L 01/14/22 04:25 Albumin 2.9 g/dL (3.4-5.0) L 01/14/22 04:25 Globulin 2.8 g/dL (2.5-4.5) 01/14/22 04:25 Albumin/Globulin Ratio 1.0 Ratio (1.1-2.1) L 01/14/22 04:25 Specimen Type Random urine 01/09/22 09:30 Urine Color Straw (YELLOW) 01/09/22 09:30 Urine Appearance Clear (CLEAR) 01/09/22 09:30 Urine pH 6.0 (5.0 - 8.0) 01/09/22 09:30 Ur Specific [place] 1.010 (1.000-1.030) 01/09/22 09:30 Urine Protein 3+ (NEGATIVE) 01/09/22 09:30 Urine Glucose (UA) 1+ (NEGATIVE) 01/09/22 09:30 Urine Ketones Negative (NEGATIVE) 01/09/22 09:30 Urine Blood 2+ (NEGATIVE) 01/09/22 09:30 Urine Nitrite Negative (NEGATIVE) 01/09/22 09:30 Urine Bilirubin Negative (NEGATIVE) 01/09/22 09:30 Urine Urobilinogen Normal (NORMAL) 01/09/22 09:30 Ur Leukocyte Esterase Negative (NEGATIVE) 01/09/22 09:30 Urine RBC 0-2 /HPF (0-3) 01/09/22 09:30 Urine WBC 0-2 /HPF (0-5) 01/09/22 09:30 Ur Squamous Epith Cells Few /HPF (NEGATIVE) 01/09/22 09:30 Urine Bacteria Negative /HPF (NEGATIVE) 01/09/22 09:30 Hyaline Casts Few /LPF (NEGATIVE) 01/09/22 09:30 Urine Mucus Rare /HPF (NEGATIVE) 01/09/22 09:30 Ur Culture Indicated? No/not indicated 01/09/22 09:30 SARS-CoV-2 (PCR) Negative (NEGATIVE) 01/09/22 00:30 Influenza Type A (PCR) Negative (NEGATIVE) 01/09/22 00:30 Influenza Type B (PCR) Negative (NEGATIVE) 01/09/22 00:30 RSV (PCR) Positive (NEGATIVE) A 01/09/22 00:30 Plan (1) Bronchopneumonia: Status: Acute Plan: SUPPLEMENTAL OXYGEN, NORMAL SALINE WITH 40MEQ KCL AT 50 ML/HR, DUONEBS Q4H, PULMICORT NEBS BID, LEVAQUIN 500MG IV DAILY, FORTAZ 1G IV Q8H, SOLU-MEDROL 40MG IV Q8H, OTBS ACHS, HUMULIN R SLIDING SCALE, LINSINOPRIL 10MG PO BID, LASIX 40MG IV QAM, LASIX 40MG IV Q1700, THE POTASSIUM AND MAGNESIUM PROTOC OLS, ZOFRAN 4MG IV Q6H PRN, AND HER HOME MEDICATIONS WERE RESUMED. (2) RSV infection: Status: Acute (3) COPD exacerbation: Status: Acute (4) Acute hyponatremia: Status: Acute (5) Hypoxia: Status: Acute (6) Hypertension, uncontrolled: Status: Acute Plan: RESUME HOME MEDICATIONS, BUT HOLD HCTZ, LISINOPRIL 10MG PO BID (7) Hypokalemia: Status: Resolved
[2022-01-14] MEDS ORDERED: ALLEGRA ONE (20:46)
[2022-01-14] MEDS: ZINC SULFATE PO SCH (22:01)
[2022-01-14] MEDS: SNACK - Diabetic Appropriate PO SCH (22:04)
[2022-01-14] MEDS: CRESTOR TAB 10 MG PO SCH (22:04)
[2022-01-14] MEDS: ALLEGRA PO SCH (22:04)
[2022-01-15] MEDS: DUONEB 0.5 MG/3 MG (3 mL) NEB SCH ×3 (00:33→09:30)
[2022-01-15] MEDS: FORTAZ or TAZICEF VIAL INJ 1 G in NS 100 ML IV 100 ML IV SCH (06:07)
[2022-01-15] MEDS: NEURONTIN CAP 100 MG PO SCH (06:07)
[2022-01-15] MEDS: SOLU-Medrol 40 MG VIAL IVP SCH (06:07)
[2022-01-15 06:44] LABS: BASOPHILS % (AUTO) 0.2 % (0.2-1.0); EOSINOPHILS % (AUTO) 0.1 % (0.9-2.9); HEMATOCRIT 28.6 % (36.0-47.0); HEMOGLOBIN 10.1 g/dL (12.0-16.0); LYMPHOCYTES # (AUTO) 0.8 X10^3/uL (1.3-2.9); LYMPHOCYTES % (AUTO) 7.9 % (21.0-51.0); MEAN CORPUSCULAR HGB CONC 35.4 g/dL (33.0-35.0); MEAN CORPUSCULAR VOLUME 84.8 fL (80.0-100.0); MEAN PLATELET VOLUME 8.1 fL (7.4-11.0); MONOCYTES # (AUTO) 0.5 x10^3/uL (0.3-0.8); MONOCYTES % (AUTO) 4.3 % (0.0-13.0); NEUTROPHILS # (AUTO) 9.2 x10^3/uL (2.2-4.8); NEUTROPHILS % (AUTO) 87.5 % (42.0-75.0); RED BLOOD COUNT 3.37 X10^6/uL (3.5-5.4); RED CELL DISTRIBUTION WIDTH 14.3 % (11.6-16.5); WHITE BLOOD COUNT 10.5 X10^3/uL (3.6-10.0)
[2022-01-15 06:54] LABS: ALANINE AMINOTRANSFERASE 21 Units/L (12-78); ALBUMIN 3.3 g/dL (3.4-5.0); ALKALINE PHOSPHATASE 47 Units/L (46-116); ASPARTATE AMINO TRANSFERASE 18 Units/L (15-37); BLOOD UREA NITROGEN 23 mg/dL (7-18); CALCIUM 8.1 mg/dL (8.5-10.1); CARBON DIOXIDE 33.4 mmol/L (21-32); CHLORIDE 99 mmol/L (98-107); COR CA(FOR HYPOALB) 8.7 mg/dL (8.5-10.1); COR NA(FOR HYPERGLY) 138 mmol/L (136-145); CREATININE 0.92 mg/dL (0.55-1.02); SODIUM 136 mmol/L (136-145); TOTAL PROTEIN 6.3 g/dL (6.4-8.2); eGFR NON BLACK RACES > 60 (>60)
[2022-01-15 07:15] LABS: PLATELET MORPHOLOGY COMMENT NORMAL (NORMAL)
[2022-01-15 07:19] LABS: CRENATED RBC SLIGHT
[2022-01-15 07:20] LABS: BURR CELLS SLIGHT
[2022-01-15 08:18] VITALS: BP 170/79
[2022-01-15] MEDS ORDERED: ZESTRIL TAB 20 MG ONE (08:40)
[2022-01-15] MEDS ORDERED: GLUCOPHAGE ONE (08:40)
[2022-01-15] MEDS: AMARYL TAB 4 MG PO SCH (08:58)
[2022-01-15] MEDS: ZESTRIL TAB 20 MG PO SCH (09:01)
[2022-01-15] MEDS: TAB-A-VITE PO SCH (09:01)
[2022-01-15] MEDS: ZETIA TAB 10 MG PO SCH (09:02)
[2022-01-15] MEDS: PriLOSEC PO SCH (09:03)
[2022-01-15] MEDS: VITAMIN D3 125 mcg (5,000 UNITS) PO SCH (09:03)
[2022-01-15] MEDS: GLUCOPHAGE PO SCH (09:04)
[2022-01-15] MEDS: COREG TAB 25 MG PO SCH (09:04)
[2022-01-15] MEDS: LOVAZA PO SCH (09:04)
[2022-01-15] MEDS: LEVAQUIN PREMIX IV 500 MG 500 MG/100 ML BAG IV SCH (09:05)
[2022-01-15] MEDS: ASPIRIN EC 81 MG PO SCH (09:05)
[2022-01-15] MEDS: ALBUMIN HUMAN 25%- 100 ML 100 ML IV SCH (09:05)
[2022-01-15] MEDS: LASIX IVP SCH (09:05)
[2022-01-15] MEDS: LOVENOX INJ 40 MG SYR SC SCH (09:07)
[2022-01-15] MEDS: PULMICORT NEB TX 0.5 MG NEB SCH (09:30)
--- NOTE | 2022-01-16 20:06 | PCM.DCPLAN ---
DISCHARGE SUMMARY Admission Date Date of Admission: 01/09/22 Discharge Date Discharge Date: 01/15/22 Admission Diagnoses (1) Bronchopneumonia: Status: Acute (2) RSV infection: Status: Acute (3) COPD exacerbation: Status: Acute (4) Acute hyponatremia: Status: Acute (5) Hypoxia: Status: Acute (6) Hypertension, uncontrolled: Status: Acute (7) Hypokalemia: Status: Resolved Discharge Diagnoses Discharge Diagnosis: 1. Bronchopneumonia secondary to Acinetobacter Bauminii 2. RSV infection 3. COPD exacerbation 4. Acute hyponatremia 5. Hypoxia 6. Hypertension stable 7. Hypokalemia Discharge Medications Discharge Medications: Home Medication List gabapentin 100 mg capsule 200 mg PO HS 01/12/22 [History] budesonide 0.5 mg/2 mL suspension for nebulization 1 ea NEB BIDRESP #50 mL 01/13/22 [Rx] ipratropium 0.5 mg-albuterol 3 mg (2.5 mg base)/3 mL nebulization soln 1 neb NEB TID #50 EACH 01/13/22 [Rx] levofloxacin 500 mg tablet 500 mg PO DAILY #10 tabs 01/13/22 [Rx] lisinopril 20 mg tablet 20 mg PO BID #60 tabs 01/13/22 [Rx] methylprednisolone 4 mg tablets in a dose pack (Medrol (Payam)) See Rx Instructions .Route .COMPLEX #1 ea 01/13/22 [Rx] amoxicillin 500 mg-potassium clavulanate 125 mg tablet (Augmentin) 1 tab PO BID #14 tabs 01/15/22 [Rx] levofloxacin 500 mg tablet 500 mg PO Q24H #7 tabs 01/15/22 [Rx] Prescriptions: amoxicillin-pot clavulanate [Augmentin] LUCIA TOTH budesonide Salvatore Riley ipratropium-albuterol Salvatore Riley levofloxacin LUCIA TOTH levofloxacin Salvatore Riley lisinopril Salvatore Riley methylprednisolone [Medrol (Payam)] Salvatore Riley Hospital Course Vital Signs: Temperature 98.6 F Pulse Rate [Right Radial] 98 Pulse Rate 90 Respiratory Rate 20 Blood Pressure [Left Arm] 164/76 Blood Pressure [Right Arm] 170/79 Blood Pressure 173/75 O2 Sat by Pulse Oximetry 90 Latest Lab Results: Laboratory Last Values WBC 10.5 X10^3/uL (3.6-10.0) H 01/15/22 06:29 RBC 3.37 X10^6/uL (3.5-5.4) L 01/15/22 06:29 Hgb 10.1 g/dL (12.0-16.0) L 01/15/22 06:29 Hct 28.6 % (36.0-47.0) L 01/15/22 06:29 MCV 84.8 fL (80.0-100.0) 01/15/22 06: MCH 30.0 pg (27.0-34.0) 01/15/22 06: MCHC 35.4 g/dL (33.0-35.0) H 01/15/22 06: RDW 14.3 % (11.6-16.5) 01/15/22 06: Plt Count 247 X10^3/uL (150.0-450.0) 01/15/22 06:29 Plt Count Comment Adequate (ADEQUATE) 01/15/22 06: MPV 8.1 fL (7.4-11.0) 01/15/22 06:29 Neut % (Auto) 87.5 % (42.0-75.0) H 01/15/22 06: Lymph % (Auto) 7.9 % (21.0-51.0) L 01/15/22 06:29 Saline % (Auto) 4.3 % (0.0-13.0) 01/15/22 06: Eos % (Auto) 0.1 % (0.9-2.9) L 01/15/22 06: Baso % (Auto) 0.2 % (0.2-1.0) 01/15/22 06:29 Neut # (Auto) 9.2 x10^3/uL (2.2-4.8) H 01/15/22 06:29 Lymph # (Auto) 0.8 X10^3/uL (1.3-2.9) L 01/15/22 06:29 Saline # (Auto) 0.5 x10^3/uL (0.3-0.8) 01/15/22 06:29 Eos # (Auto) 0.0 x10^3/uL (0.0-0.2) 01/15/22 06:29 Baso # (Auto) 0.0 X10^3/uL (0.0-0.1) 01/15/22 06:29 Absolute Nucleated RBC 0.1 /100WBC 01/15/22 06:29 Total Counted 100 01/15/22 06:29 Neutrophils % (Manual) 87 % (39-76) H 01/15/22 06:29 Lymphocytes % (Manual) 8 % (13-43) L 01/15/22 06:29 Monocytes % (Manual) 5 % (4-9) 01/15/22 06:29 Plt Morphology Comment Normal (NORMAL) 01/15/22 06:29 RBC Morphology Abnormal (NORMAL) A 01/15/22 06:29 Jovan Cells Slight A 01/15/22 06:29 Crenated Cell Slight A 01/15/22 06:29 PT 13.9 SECONDS (11.8-14.3) 01/09/22 04:30 INR Target Range - 01/09/22 04:30 INR 1.11 (0.8-1.3) 01/09/22 04:30 APTT 31.3 SECONDS (22.9-36.5) 01/09/22 04:30 PTT Comment - 01/09/22 04:30 Sample Site Lr 01/09/22 00:23 ABG pH 7.390 (7.35-7.45) 01/09/22 00:23 ABG pCO2 40.0 mmHg (35.0-45.0) 01/09/22 00:23 ABG pO2 57.0 mmHg (80.0-100.0) L 01/09/22 00:23 ABG HCO3 24.2 mmol/L (22-26) 01/09/22 00:23 ABG O2 Saturation 89.0 % (90-100) L 01/09/22 00:23 ABG Base Excess -0.7 mmol/L (-2.0-2.0) 01/09/22 00:23 Alcides Test Pos 01/09/22 00:23 A-a Gradient 150.0 mmHg 01/09/22 00:23 FiO2 36.0 01/09/22 00:23 Blood Gas Comments Lee well ae 01/09/22 00:23 Sodium 136 mmol/L (136-145) 01/15/22 06:29 Corrected Sodium 138 mmol/L (136-145) 01/15/22 06:29 Potassium 3.9 mmol/L (3.5-5.1) 01/15/22 06:29 Chloride 99 mmol/L (98-107) 01/15/22 06:29 Carbon Dioxide 33.4 mmol/L (21-32) H 01/15/22 06:29 BUN 23 mg/dL (7-18) H 01/15/22 06:29 Creatinine 0.92 mg/dL (0.55-1.02) 01/15/22 06:29 Est GFR (MDRD) Af Amer > 60 (>60) 01/15/22 06:29 Est GFR (MDRD) Non-Af > 60 (>60) 01/15/22 06:29 Glucose 175 mg/dL (65-99) H 01/15/22 06:29 POC Glucose (mg/dL) 147 mg/dL (65-99) H 01/15/22 05:46 Calcium 8.1 mg/dL (8.5-10.1) L 01/15/22 06:29 Corrected Calcium 8.7 mg/dL (8.5-10.1) 01/15/22 06:29 Magnesium 1.7 mg/dL (1.7-2.9) 01/14/22 04:25 Total Bilirubin 0.40 mg/dL (0.2-1.0) 01/15/22 06:29 AST 18 Units/L (15-37) 01/15/22 06:29 ALT 21 Units/L (12-78) 01/15/22 06:29 Alkaline Phosphatase 47 Units/L (46-116) 01/15/22 06:29 Creatine Kinase 410 Units/L (26-192) H 01/09/22 11:30 CK-MB (CK-2) 7.8 ng/mL (0-4.0) H 01/09/22 11:30 CK/CKMB % Calc 1.9 % (<4) 01/09/22 11:30 Troponin I High Sens 41.4 ng/L (4.0-60.0) 01/09/22 11:30 B-Natriuretic Peptide 748 pg/mL (0-79) H* 01/13/22 17:00 Total Protein 6.3 g/dL (6.4-8.2) L 01/15/22 06:29 Albumin 3.3 g/dL (3.4-5.0) L 01/15/22 06:29 Globulin 3.0 g/dL (2.5-4.5) 01/15/22 06: Albumin/Globulin Ratio 1.1 Ratio (1.1-2.1) 01/15/22 06:29 Specimen Type Random urine 01/09/22 09:30 Urine Color Straw (YELLOW) 01/09/22 09:30 Urine Appearance Clear (CLEAR) 01/09/22 09:30 Urine pH 6.0 (5.0 - 8.0) 01/09/22 09:30 Ur Specific [place] 1.010 (1.000-1.030) 01/09/22 09:30 Urine Protein 3+ (NEGATIVE) 01/09/22 09:30 Urine Glucose (UA) 1+ (NEGATIVE) 01/09/22 09:30 Urine Ketones Negative (NEGATIVE) 01/09/22 09:30 Urine Blood 2+ (NEGATIVE) 01/09/22 09:30 Urine Nitrite Negative (NEGATIVE) 01/09/22 09:30 Urine Bilirubin Negative (NEGATIVE) 01/09/22 09:30 Urine Urobilinogen Normal (NORMAL) 01/09/22 09:30 Ur Leukocyte Esterase Negative (NEGATIVE) 01/09/22 09:30 Urine RBC 0-2 /HPF (0-3) 01/09/22 09:30 Urine WBC 0-2 /HPF (0-5) 01/09/22 09:30 Ur Squamous Epith Cells Few /HPF (NEGATIVE) 01/09/22 09:30 Urine Bacteria Negative /HPF (NEGATIVE) 01/09/22 09:30 Hyaline Casts Few /LPF (NEGATIVE) 01/09/22 09:30 Urine Mucus Rare /HPF (NEGATIVE) 01/09/22 09:30 Ur Culture Indicated? No/not indicated 01/09/22 09:30 SARS-CoV-2 (PCR) Negative (NEGATIVE) 01/09/22 00:30 Influenza Type A (PCR) Negative (NEGATIVE) 01/09/22 00:30 Influenza Type B (PCR) Negative (NEGATIVE) 01/09/22 00:30 RSV (PCR) Positive (NEGATIVE) A 01/09/22 00:30 Hospital Course: The patient remained hypoxic following admission and she was continued on Rocephin treatment. She did test positive for RSV she was given jet nebs and IV Solu-Medrol. This was continued over the next few days and she was only slowly getting better. Sputum culture came back and showed Acinetobacter infection which was sensitive to Levaquin. Her bronchopneumonia also was not getting significantly improved so Fortaz was also added at that time. I saw the patient on 01/14/2022 and she was feeling better that morning still remaining a little hypoxic but her labs had improved her hyponatremia corrected itself and was normalized but given she was mildly hypoxic still we decided to the wait until the following day says she was. By the following day she was satting in the low 90s on 3 L of oxygen feeling much better her color was better and she seen in very good spirits. We decided go ahead and discharge her home which she was happy to hear.
== END 2022-01-15 11:20 | disposition home or self-care (01) | DRG 190 ==
LOC: ER 00:07 → MED/SURG 02:27
PROVIDERS: ADMIT Internal Medicine; ATTEND Internal Medicine
DX: B96.89 Other specified bacterial agents as the cause of diseases classified elsewhere; J91.8 Pleural effusion in other conditions classified elsewhere; E87.1 Hypo-osmolality and hyponatremia; I10 Essential (primary) hypertension; R06.02 Shortness of breath; E87.6 Hypokalemia; Z20.822 Contact with and (suspected) exposure to COVID-19; E11.65 Type 2 diabetes mellitus with hyperglycemia; J18.0 Bronchopneumonia, unspecified organism; J44.1 Chronic obstructive pulmonary disease with (acute) exacerbation; B97.4 Respiratory syncytial virus as the cause of diseases classified elsewhere; R09.02 Hypoxemia

== ENCOUNTER 2022-05-04 12:14 | Inpatient (IN) ==
[2022-05-04 12:24] VITALS: BMI 24.8
--- NOTE | 2022-05-04 12:30 | DR.SOBA ---
HPI Time Seen Time Seen by Provider: 05/04/22 12:18 Primary Care Physician Primary Care Physician: BRANDY NIELSON HPI Comment HPI Comment: A 76 y/o female presenting with c/o worsening SOB x > 2 weeks. There is associated productive cough. She saw her PCP last week and she was placed on outpt. antibiotics. At f/u in the office yesterday, her oxygen satu ration was 64 %. A portable oxygen was tank was given to supplement her big tank at home. A chest CT Scan was then ordered. She was back in the office this morning for f/u and based on the report, she states her that the OPERATOR COATING FURNACE had sugested she get IV antibiotics. She is an ex-smoker now with COPD, having quit smoking in September 2019. Complaints Chief Complaint:: SPOUSE STATES PT. HAS BEEN SICK X 2 WEEKS WITH SHORTNESS OF BREATH AND COUGH. PT. HAS SEEN PCP AND HAS BEEN GIVEN ANTIBIOTICS AND STERIODS. PT. HAD AN OUT PATIENT CT SCAN YESTERDAY WHICH SHOWED BILATERAL LOWER LOBE MUCOUS PLUGGING AND LEFT GREATER THAN THE RIGHT BASILAR ATELECCTASIS AND PT. ALSO HAS TRACE PERICARDIAL EFFUSION AND LEFT PLEURAL EFFUSION. PT. C/O PRODUCTIVE COUGH, THICK, GREEN SPUTUM. PT. HAS BEEN O2 DEPENDENT @ HOME SINCE LAST WEEK. COVID-19 Coronavirus risk:travel/contact w/high risk person: No Has patient experienced Coronavirus symptoms: Yes Coronavirus symptoms experienced: Coughing and Shortness of Breath Source History Provided: Patient and Family Member Mode of Arrival Mode of Arrival: Wheelchair Timing Onset of Chief Complaint: 04/20/22 Duration Duration: Weeks Context Onset:: At Rest and With Light Exertion History of:: COPD Prehospital Care:: O2 Associated Signs and Symptoms Associated Signs and Symptoms: Cough If Cough Cough: Productive PMH PMH Past Medical History: Yes Past Medical History: COPD, Diabetes and Hypertension Past Surgical History: Yes Surgical History: Angioplasty/Stents, and Hysterectomy Family History History of Family Medical Conditions: Yes Family Medical History: Diabetes Mellitus, Cancer, [place] and Hypertension Social History Does patient currently use any type of tobacco product: No Have you used tobacco products in the last 12 months: No Type of Tobacco Use: None Does any household member use tobacco: No Alcohol Use: None Do you use any recreational Drugs:: No Lives With: Spouse Lives Where: Home Travel Risk Coronavirus risk:travel/contact w/high risk person: No Has patient experienced Coronavirus symptoms: Yes Coronavirus symptoms experienced: Coughing and Shortness of Breath Infectious screening In the last 2 months have you had wt loss of >10#?: NO Have you had fever, night sweats or hemotysis?: No Have you traveled outside the country in the last 6 months?: No Isolation: Droplet ROS Review of Systems Constitutional: No Symptoms Reported Eyes: No Symptoms Reported ENTM: No Symptoms Reported Respiratoy: Productive Cough and Short of Breath Cardiovascular: No Symptoms Reported Gastrointestinal/Abdominal: No Symptoms Reported Genitourinary: No Symptoms Reported Neurological: No Symptoms Reported Musculoskeletal: No Symptoms Reported Integumentary: No Symptoms Reported Hematologic/Lymphatic: No Symptoms Reported Endocrine: No Symptoms Reported Psychiatric: No Symptoms Reported All Other Systems: Reviewed and Negative PE Vital Signs Vitals: Temperature 98.4 F Pulse Rate 86 Respiratory Rate 22 Blood Pressure [Left Arm] 164/76 Blood Pressure [Right Arm] 170/79 Blood Pressure 161/71 O2 Sat by Pulse Oximetry 95 General Limitations: No Limitations General Appearance: Alert and In No Apparent Distress Head Head Exam: Normal Inspection, Atraumatic and Normocephalic Eyes Eye exam: Normal Appearance and EOMI ENT ENT Exam: Normal Exam, Normal Oropharynx, Normal External Ear Exam and Mucous Membranes Moist Neck Neck Exam: Normal Inspection, Full ROM and Trachea Midline Chest Chest Inspection: Normal Inspection and Symmetric Chest Wall Rise Respiratory Respiratory Exam: Left: Rhonchi and Left: Crackles and Lower: Rhonchi and Lower: Crackles Cardiovascular Cardiovascular Exam: Regular Rate, Normal Rhythm, Normal Heart Sounds, +S1 and +S2 Abdominal Exam Abdominal Exam: Normal Inspection, Normal Bowel Sounds and Soft Extremities Extremities Exam: Normal Inspection and Full ROM Back Back Exam: Normal Inspection and Full ROM Neurologic Neurological Exam: Alert and Oriented X3 Psychiatric Psychiatric Exam: Normal Affect and Normal Mood Skin Skin Exam: Warm, Dry, Intact and Normal Color COURSE Treatment Treatment: I spoke with her OPERATOR COATING FURNACE at the practice in [place], [place] about her. I then spoke with composition teacher provider (Dr. Riley) and it was agreed to admit her in- house for treatment. Reevaluation 1st: Improved Education/Counseling Education/Counseling: Patient, Family, Education and Counseling Educated On: Treatment, Diagnosis, Prognosis and Needs for Follow Up ROR Labs Reviewed Laboratory Results Reviewed?: Yes Result Diagrams: 05/04/22 12:38 05/04/22 12:38 Laboratory: WBC 11.6 X10^3/uL (3.6-10.0) H 05/04/22 12:38 RBC 2.84 X10^6/uL (3.5-5.4) L 05/04/22 12:38 Hgb 8.0 g/dL (12.0-16.0) L 05/04/22 12:38 Hct 23.6 % (36.0-47.0) L 05/04/22 12:38 MCV 83.0 fL (80.0-100.0) 05/04/22 12:38 MCH 28.4 pg (27.0-34.0) 05/04/22 12:38 MCHC 34.2 g/dL (33.0-35.0) 05/04/22 12:38 RDW 16.2 % (11.6-16.5) 05/04/22 12:38 Plt Count 434 X10^3/uL (150.0-450.0) 05/04/22 12:38 MPV 6.9 fL (7.4-11.0) L 05/04/22 12:38 Neut % (Auto) 80.7 % (42.0-75.0) H 05/04/22 12:38 Lymph % (Auto) 10.0 % (21.0-51.0) L 05/04/22 12:38 Craig % (Auto) 7.1 % (0.0-13.0) 05/04/22 12:38 Eos % (Auto) 1.3 % (0.9-2.9) 05/04/22 12:38 Baso % (Auto) 0.9 % (0.2-1.0) 05/04/22 12:38 Neut # (Auto) 9.4 x10^3/uL (2.2-4.8) H 05/04/22 12:38 Lymph # (Auto) 1.2 X10^3/uL (1.3-2.9) L 05/04/22 12:38 Craig # (Auto) 0.8 x10^3/uL (0.3-0.8) 05/04/22 12:38 Eos # (Auto) 0.1 x10^3/uL (0.0-0.2) 05/04/22 12:38 Baso # (Auto) 0.1 X10^3/uL (0.0-0.1) 05/04/22 12:38 Absolute Nucleated RBC 0.0 /100WBC 05/04/22 12:38 Sample Site Lr 05/04/22 12:16 ABG pH 7.440 (7.35-7.45) 05/04/22 12:16 ABG pCO2 40.0 mmHg (35.0-45.0) 05/04/22 12:16 ABG pO2 68.0 mmHg (80.0-100.0) L 05/04/22 12:16 ABG HCO3 27.2 mmol/L (22-26) H 05/04/22 12:16 ABG O2 Saturation 94.0 % (90-100) 05/04/22 12:16 ABG Base Excess 2.8 mmol/L (-2.0-2.0) H 05/04/22 12:16 Alcides Test Pos 05/04/22 12:16 A-a Gradient 82.0 mmHg 05/04/22 12:16 FiO2 28.0 05/04/22 12:16 Blood Gas Comments Lee well 05/04/22 12:16 Sodium 128 mmol/L (136-145) L 05/04/22 12:38 Corrected Sodium TNP 05/04/22 12:38 Potassium 4.1 mmol/L (3.5-5.1) 05/04/22 12:38 Chloride 94 mmol/L (98-107) L 05/04/22 12:38 Carbon Dioxide 26.2 mmol/L (21-32) 05/04/22 12:38 BUN 20 mg/dL (7-18) H 05/04/22 12:38 Creatinine 1.46 mg/dL (0.55-1.02) H 05/04/22 12:38 Est GFR (MDRD) Af Amer 45 (>60) L 05/04/22 12:38 Est GFR (MDRD) Non-Af 37 (>60) L 05/04/22 12:38 Glucose 95 mg/dL (65-99) 05/04/22 12:38 Calcium 8.0 mg/dL (8.5-10.1) L 05/04/22 12:38 Corrected Calcium 9.5 mg/dL (8.5-10.1) 05/04/22 12:38 Total Bilirubin 0.30 mg/dL (0.2-1.0) 05/04/22 12:38 AST 31 Units/L (15-37) 05/04/22 12:38 ALT 22 Units/L (12-78) 05/04/22 12:38 Alkaline Phosphatase 68 Units/L (46-116) 05/04/22 12:38 Total Protein 7.0 g/dL (6.4-8.2) 05/04/22 12:38 Albumin 2.1 g/dL (3.4-5.0) L 05/04/22 12:38 Globulin 4.9 g/dL (2.5-4.5) H 05/04/22 12:38 Albumin/Globulin Ratio 0.4 Ratio (1.1-2.1) L 05/04/22 12:38 XRAY XRAY Interpreted by: Radiologist X-ray Results: Chest CT Scan: Rt. Hillar adenopathy. Bilateral atelectasis. Opioid Opioid Risk Tool Age (Markell box if 16-45): No History of Preadolescent Sexual Abuse: No Total: 0 Total Score Risk Category: Low Risk Copyright: Juanjo VOSS predicting aberrant behaviors Discharge Plan Diagnosis Discharge Problem: COPD exacerbation, Hypoxia, Mucus plugging of bronchi, Acute hyponatremia Discharge Plan Patient Disposition: 09 ADMITTED INPATIENT Condition: Stable Prescriptions: No Action metformin 500 mg tablet 1,000 mg PO BID Label Comments: TAKE 2 TABLETS BY MOUTH TWICE DAILY FOR 90 DAYS carvedilol 25 mg tablet 25 mg PO BID Label Comments: TAKE 1 TABLET BY MOUTH TWICE DAILY amlodipine 10 mg tablet 10 mg PO DIRECTED Label Comments: TAKE 1 TABLET BY MOUTH ONCE DAILY Rx Instructions: 1 DAILY AT NOON omeprazole 20 mg capsule,delayed release(DR/EC) 20 mg PO DAILY Label Comments: TAKE 1 CAPSULE BY MOUTH ONCE DAILY gabapentin 100 mg capsule 100 mg PO BID Label Comments: TAKE 1 CAPSULE BY MOUTH THREE TIMES DAILY Rx Instructions: 100MG FOR BREAKFAST AND LUNCH AND 200MG PO QHS. ezetimibe 10 mg tablet 10 mg PO DAILY Label Comments: TAKE 1 TABLET BY MOUTH ONCE DAILY FOR 90 DAYS rosuvastatin 20 mg tablet 20 mg PO HS Label Comments: TAKE 1 TABLET BY MOUTH ONCE DAILY FOR 90 DAYS glimepiride 2 mg tablet 2 mg PO DAILY Label Comments: TAKE 1 TABLET BY MOUTH ONCE DAILY WITH BREAKFAST OR THE FIRST MAIN MEAL OF THE DAY FOR 90 DAYS fexofenadine 180 mg Tablet 180 mg PO HS meloxicam 7.5 mg Tablet 7.5 mg PO BID garlic 1,000 mg Capsule 1,000 mg PO HS zinc 25 mg Tablet 25 mg PO HS albuterol sulfate [ProAir HFA] 90 mcg/actuation Hfa Aerosol Inhaler 2 puff INHALATION BID multivitamin Capsule 1 cap PO DAILY glucosamine-chondroitin [Osteo Bi-Flex] 250-200 mg Tablet 1 tab PO BID omega-3 fatty acids Capsule 1,000 mg PO BID budesonide-formoterol [Symbicort] 160-4.5 mcg/actuation Hfa Aerosol Inhaler 2 puff INHALATION BID cholecalciferol (vitamin D3) [Vitamin D3] 125 mcg (5,000 unit) Tablet 125 mcg PO DAILY aspirin 81 mg Capsule 81 mg PO DAILY gabapentin 100 mg Capsule 200 mg PO HS ipratropium-albuterol [ipratropium-albuterol] 0.5 mg-3 mg(2.5 mg base)/3 mL solution for nebulization 1 neb NEB TID Qty: 50 1RF budesonide 0.5 mg/2 mL suspension for nebulization 1 ea NEB BIDRESP Qty: 50 1RF Health Concerns: Post Hospitalization: new medications and changes needed to prevent readmission or further decline. Pt educated and given instructions on all concerns. Plan of Treatment: Continue with present treatment and follow up plan. Pt is to keep follow up appointment as instructed and take medications as ordered. Orders to Discharge Patient Discharge Orders: Transfer (Routine); Ordered 05/04/22 Ordered By: LILA COLE Follow ups/Referrals Follow ups/Referrals: BRANDY NIELSON [Primary Care Provider] - 3 days
[2022-05-04 12:38] LABS: ABG ALLEN TEST POS; ABG BASE EXCESS 2.8 mmol/L (-2.0-2.0); ABG HCO3 27.2 mmol/L (22-26)
[2022-05-04 12:45] LABS: BASOPHILS # (AUTO) 0.1 X10^3/uL (0.0-0.1); BASOPHILS % (AUTO) 0.9 % (0.2-1.0); EOSINOPHILS # (AUTO) 0.1 x10^3/uL (0.0-0.2); EOSINOPHILS % (AUTO) 1.3 % (0.9-2.9); HEMATOCRIT 23.6 % (36.0-47.0); LYMPHOCYTES # (AUTO) 1.2 X10^3/uL (1.3-2.9); MEAN CORPUSCULAR HEMOGLOBIN 28.4 pg (27.0-34.0); MEAN CORPUSCULAR HGB CONC 34.2 g/dL (33.0-35.0); MEAN PLATELET VOLUME 6.9 fL (7.4-11.0); MONOCYTES # (AUTO) 0.8 x10^3/uL (0.3-0.8); MONOCYTES % (AUTO) 7.1 % (0.0-13.0); NEUTROPHILS # (AUTO) 9.4 x10^3/uL (2.2-4.8); NEUTROPHILS % (AUTO) 80.7 % (42.0-75.0); RED BLOOD COUNT 2.84 X10^6/uL (3.5-5.4); RED CELL DISTRIBUTION WIDTH 16.2 % (11.6-16.5); WHITE BLOOD COUNT 11.6 X10^3/uL (3.6-10.0)
[2022-05-04] MEDS ORDERED: SOLU-Medrol 40 MG VIAL IVP ONE (12:54)
[2022-05-04] MEDS ORDERED: LEVAQUIN PREMIX IV 500 MG 500 MG/100 ML BAG IV ONE ×2 (12:54→13:20)
[2022-05-04 12:57] LABS: ALANINE AMINOTRANSFERASE 22 Units/L (12-78); ALBUMIN 2.1 g/dL (3.4-5.0); ALKALINE PHOSPHATASE 68 Units/L (46-116); ASPARTATE AMINO TRANSFERASE 31 Units/L (15-37); BLOOD UREA NITROGEN 20 mg/dL (7-18); CARBON DIOXIDE 26.2 mmol/L (21-32); CHLORIDE 94 mmol/L (98-107); COR CA(FOR HYPOALB) 9.5 mg/dL (8.5-10.1); CREATININE 1.46 mg/dL (0.55-1.02); SODIUM 128 mmol/L (136-145); eGFR NON BLACK RACES 37 (>60)
[2022-05-04] MEDS ORDERED: NS 1,000 ML IV 1,000 ML ONE (13:20)
[2022-05-04] MEDS ORDERED: SOLU-Medrol 40 MG VIAL ONE (13:20)
[2022-05-04] MEDS: NS 1,000 ML IV 1,000 ML IV SCH (13:41)
[2022-05-04] MEDS ORDERED: DUONEB 0.5 MG/3 MG (3 mL) NEB ONE (16:44)
[2022-05-04] MEDS ORDERED: MUCOMYST (RESPIRATORY USE ONLY) ONE (16:45)
[2022-05-04] MEDS: NORVASC TAB 10 MG PO SCH (16:55)
[2022-05-04] MEDS: MUCOMYST 20% 200 MG/ML NEB SCH ×2 (17:10→21:07)
[2022-05-04] MEDS: DUONEB 0.5 MG/3 MG (3 mL) NEB SCH (17:10)
[2022-05-04] MEDS ORDERED: GLUCOPHAGE ONE (20:05)
[2022-05-04] MEDS ORDERED: ALLEGRA ONE (20:06)
[2022-05-04] MEDS: MOBIC TAB 15 MG PO SCH (20:36)
[2022-05-04] MEDS: ZINC SULFATE PO SCH (20:37)
[2022-05-04] MEDS: NEURONTIN CAP 100 MG PO SCH (20:37)
[2022-05-04] MEDS: CRESTOR TAB 10 MG PO SCH (20:38)
[2022-05-04] MEDS: COREG TAB 25 MG PO SCH (20:38)
[2022-05-04] MEDS: SNACK - Diabetic Appropriate PO SCH (20:39)
[2022-05-04] MEDS: ALLEGRA PO SCH (20:39)
[2022-05-04] MEDS ORDERED: GLUCOPHAGE PO SCH (21:00)
[2022-05-04] MEDS ORDERED: GARLIC 1000 MG PO SCH (21:00)
[2022-05-04] MEDS ORDERED: GLUCOSAMINE CHONDROITIN PO SCH (21:00)
[2022-05-04] MEDS: SOLU-Medrol 40 MG VIAL IVP SCH (21:06)
[2022-05-04] MEDS: PULMICORT NEB TX 0.5 MG NEB SCH (21:06)
[2022-05-05 04:59] LABS: BASOPHILS % (AUTO) 0.1 % (0.2-1.0); HEMATOCRIT 21.3 % (36.0-47.0); HEMOGLOBIN 7.4 g/dL (12.0-16.0); LYMPHOCYTES # (AUTO) 0.7 X10^3/uL (1.3-2.9); LYMPHOCYTES % (AUTO) 10.8 % (21.0-51.0); MEAN CORPUSCULAR HEMOGLOBIN 28.3 pg (27.0-34.0); MEAN CORPUSCULAR HGB CONC 34.7 g/dL (33.0-35.0); MEAN CORPUSCULAR VOLUME 81.6 fL (80.0-100.0); MEAN PLATELET VOLUME 7.2 fL (7.4-11.0); MONOCYTES # (AUTO) 0.1 x10^3/uL (0.3-0.8); MONOCYTES % (AUTO) 1.3 % (0.0-13.0); NEUTROPHILS # (AUTO) 5.7 x10^3/uL (2.2-4.8); NEUTROPHILS % (AUTO) 87.8 % (42.0-75.0); RED BLOOD COUNT 2.61 X10^6/uL (3.5-5.4); RED CELL DISTRIBUTION WIDTH 15.9 % (11.6-16.5); WHITE BLOOD COUNT 6.5 X10^3/uL (3.6-10.0)
[2022-05-05] MEDS ORDERED: ZOFRAN INJ 4 MG VIAL IVP PRN (05:07)
[2022-05-05] MEDS ORDERED: ZOFRAN INJ 4 MG VIAL ONE (05:11)
[2022-05-05 05:13] LABS: CALCIUM 7.8 mg/dL (8.5-10.1); CARBON DIOXIDE 24.4 mmol/L (21-32); COR CA(FOR HYPOALB) 9.4 mg/dL (8.5-10.1); CREATININE 1.48 mg/dL (0.55-1.02); TOTAL PROTEIN 6.6 g/dL (6.4-8.2)
[2022-05-05] MEDS: SOLU-Medrol 40 MG VIAL IVP SCH ×3 (05:32→21:16)
[2022-05-05] MEDS: DUONEB 0.5 MG/3 MG (3 mL) NEB SCH ×5 (06:03→20:30)
[2022-05-05] MEDS: MUCOMYST 20% 200 MG/ML NEB SCH ×3 (06:03→20:30)
[2022-05-05] MEDS: NEURONTIN CAP 100 MG PO SCH ×3 (08:03→20:35)
--- NOTE | 2022-05-05 08:18 | RAD ---
HISTORYShortness of breathSTUDYChest AP [id number] heart is enlarged. The jacquie are normal. The aorta is calcified. The lungs are hyperinflated but free of acute alveolar infiltrates. There are some chronic appearing interstitial lung changes present. There is blunting of the left costophrenic angle suggestive of a small left pleural effusion. Bony thorax is unremarkable.IMPRESSIONCardiomegaly without congestive heart failureHyperinflation and chronic interstitial lung changes suggestive of COPD in the appropriate clinical settingSmall left pleural effusionElectronically signed by: SYLVAIN THOMPSON (May 05, 2022 08:16:04)
[2022-05-05] MEDS ORDERED: COLACE CAP 100 MG PO ONE (08:31)
[2022-05-05] MEDS ORDERED: GLUCOPHAGE ONE ×2 (08:32→19:40)
[2022-05-05] MEDS ORDERED: LEVAQUIN PREMIX IV 750 MG 750 MG/150 ML BAG IV SCH (09:00)
[2022-05-05] MEDS: LOVENOX INJ 30 MG SYR SC SCH ×2 (09:03→09:28)
[2022-05-05] MEDS: PULMICORT NEB TX 0.5 MG NEB SCH ×2 (09:04→20:30)
[2022-05-05] MEDS: ASPIRIN EC 81 MG PO SCH (09:07)
[2022-05-05] MEDS: AMARYL TAB 4 MG PO SCH (09:08)
[2022-05-05] MEDS: PriLOSEC PO SCH (09:08)
[2022-05-05] MEDS: GLUCOPHAGE PO SCH ×2 (09:08→20:35)
[2022-05-05] MEDS: COREG TAB 25 MG PO SCH ×2 (09:08→20:34)
[2022-05-05] MEDS: LOVAZA PO SCH (09:09)
[2022-05-05] MEDS: MOBIC TAB 15 MG PO SCH ×2 (09:09→20:34)
[2022-05-05] MEDS: VITAMIN D3 125 mcg (5,000 UNITS) PO SCH (09:09)
[2022-05-05] MEDS: ZETIA TAB 10 MG PO SCH (09:09)
[2022-05-05] MEDS: TAB-A-VITE PO SCH (09:09)
[2022-05-05] MEDS: COLACE CAP 100 MG PO SCH (09:10)
[2022-05-05 11:30] LABS: IRON 27 ug/dL (50-175)
[2022-05-05] MEDS: NORVASC TAB 10 MG PO SCH (13:21)
--- NOTE | 2022-05-05 13:38 | DR.H&P ---
H&P - History & Physical for Day of: H&P Date: 05/04/22 - Chief Complaint Chief Complaint: SHORTNESS OF BREATH, COUGH, WEAKNESS - History of Present Illness History of Present Illness: IS A 76 YEAR OLD PATIENT OF [facility] ZAMORA. SHE PRESENTED TO THE ER WITH COMPLAINTS OF WORSENING SHORTNESS OF BREATH, PRODUCTIVE COUGH, AND WEAKNESS. SYMPTOMS STARTED APPROXIMATLY 2 WEEKS AGO AND HAVE PROGRESSIVELY GOTTEN WORSE. SHE REPORTS THAT HER OXYGEN SATURATIONS IN THE OFFICE YESTERDAY WERE 64% ON ROOM AIR. A CHEST CT WAS OBTAINED AN OUTPATIENT ON 05/03 AND REVEALED BILATERAL LOWER LOBE MUCOUS PLUG AND LEFT GREATER THAN THE RIGHT BASILAR ATELECCTASIS AND TRACE PERICARDIAL EFFUSION AND LEFT PLEURAL EFFUSION. SHE HAS TAKEN LEVAQUIN 750MG PO DAILY AND LASIX 20MG DAILY FOR THE PAST SEVERAL DAYS. SHE HAS A PMH OF COPD, HTN, DM II. ON EXAMINATION, HEART IS REGULAR IN RATE AND RHYTHM. BILATERAL LUNGS ARE NOTED WITH EXPIRATORY WHEEZING. ABDOMEN IS ROUND, SOFT, AND NON-TENDER WITH NORMAL BOWEL SOUNDS NOTED IN ALL QUADRANTS. NO UPPER OR LOWER EXTREMITY EDEMA NOTED. HER VITALS ON ARRIVAL WERE: 98.4-100-22-87%-163/69. SHE WAS ON NASAL CANNULA AT 2 LPM ON ARRIVAL. LABS WERE OBTAINED. WBC 11.6, RBC 2.84, HGB 8.0, HCT 23.6, SODIUM 128, POTASSIUM 4.1, CHLORIDE 94, BUN 20, CREATININE 1.46, GLUCOSE 95, CALCIUM 8.0, AST 31, ALT 22, ALK PHOS 68, TOTAL PROTEIN 7.0, ALBUMIN 2.1, GLOBULIN 4.9. RSV, INFLUENZA, AND COVID-19 NEGATIVE. COVID AND INFLUENZA NEGATIVE. A CHEST XRAY WAS OBTAINED AND REVEALED: Cardiomegaly without congestive heart failure. Hyperinflation and chronic interstitial lung changes suggestive of COPD in the appropriate clinical setting. Small left pleural effusion. The bony thorax is unremarkable. IN THE ER, SHE WAS GIVEN LEVAQUIN 500MG IV X 1, SOLU-MEDROL 80MG IV X 1. SHE WAS ADMITTED OT THE HOSPITAL FOR FURTHER EVALUATION AND TREATMENT OF HYPONATREMIA, COPD EXACERBATION, HYPOXIA, PLEURAL EFFUSION, AND MUCOUS PLUG. SHE WAS STARTED ON NORMAL SALINE AT 75 ML/HR, DUONEBS Q6H, PULMICORT NEBS BID, LEVAQUIN 750MG IV Q48H, SOLU-MEDROL 60MG IV Q8H, OTBS ACHS, AND HER HOME MEDICATIONS WERE RESUMED. OTHERWISE, WE PLAN TO FOLLOW-UP WITH AM LABS AND CHEST XRAY AND CONTINUE TO MONITOR. TIME SPENT ON CLINICAL ASSESSMENT, REVIEWING LABS AND IMAGING, DECISION MAKING, AND DOCUMENTATION GREATER THAN 75 MINUTES. - Past Medical History Past Medical History: Hypertension, Diabetes, COPD - Past Surgical History Surgical History: Appendectomy, , Hysterectomy, Ortho Surgery - Family History Family Medical History: Cancer, [place] - Social History Does patient currently use any type of tobacco product: No Have you used tobacco products in the last 12 months: No Type of Tobacco Use: None Does any household member use tobacco: No Alcohol Use: None Drug Use: Prescription Drugs - Medications Home Medications: cyclobenzaprine [From Flexeril] Allergy (Verified 05/04/22 12:24) pseudoephedrine [From Sudafed] Allergy (Verified 05/04/22 12:24) CONTINUE taking the following medications hydrochlorothiazide 25 mg tablet 1 tab PO QDAY 05/04/22 [History] - Review of Systems Constitutional: Weakness Eyes: No Symptoms Reported ENT: No Symptoms Reported Respiratory: Cough, Shortness of Breath, SOB with Excertion, Wheezing Cardiovascular: No Symptoms Reported Gastrointestinal: No Symptoms Reported Genitourinary: No Symptoms Reported Musculoskeletal: No Symptoms Reported Skin: No Symptoms Reported Neurological: Weakness - Physical Exam Vital Signs: Temperature 97.8 F Pulse Rate 96 Respiratory Rate 29 Blood Pressure [Left Arm] 164/76 Blood Pressure [Right Arm] 170/79 Blood Pressure 157/69 O2 Sat by Pulse Oximetry 98 Oriented: Normal Eyes: Normal Ear: Normal Nose: Normal Throat: Normal Respiratory: Wheezes Throughout Cardiovascular: Normal : Normal Auscultation: Bowel Sounds: Normal Palpation: Normal Tenderness: Normal Skin: Normal Musculoskeletal: Normal Psychiatric: Normal Mood Description: Calm Affect: Normal Speech Pattern: Clear - Assessment/Plan (1) Acute hyponatremia Status: Acute Plan: NORMAL SALINE AT 75 ML/HR, DUONEBS Q6H, PULMICORT NEBS BID, LEVAQUIN 750MG IV Q48H, SOLU-MEDROL 60MG IV Q8H, OTBS ACHS, AND HER HOME MEDICATIONS WERE RESUMED. (2) COPD exacerbation Status: Acute (3) Mucus plugging of bronchi Status: Acute (4) Hypoxia Status: Acute (5) Pleural effusion Status: Acute (6) Anemia Qualifiers: Anemia type: iron deficiency Iron deficiency anemia type: unspecified iron deficiency Qualified Code(s): D50.9 - Iron deficiency anemia, unspecified Status: Acute - Review Patient was examined?: Yes - Allergies Allergies/Adverse Reactions: Allergies Allergy/AdvReac Type Severity Reaction Status Date / Time cyclobenzaprine Allergy Verified 05/04/22 12:24 [From Flexeril] pseudoephedrine Allergy Verified 05/04/22 12:24 [From Sudafed]
[2022-05-05] MEDS ORDERED: ALLEGRA ONE (19:40)
[2022-05-05] MEDS ORDERED: NovoLIN R (or HumuLIN R) ONE (20:27)
[2022-05-05] MEDS: ZINC SULFATE PO SCH (20:35)
[2022-05-05] MEDS: NS 1,000 ML IV 1,000 ML IV SCH ×2 (20:36→21:13)
[2022-05-05] MEDS: CRESTOR TAB 10 MG PO SCH (20:36)
[2022-05-05] MEDS: SNACK - Diabetic Appropriate PO SCH (20:38)
[2022-05-05] MEDS: ALLEGRA PO SCH (20:38)
[2022-05-05] MEDS: NovoLIN R (or HumuLIN R) SUBCUT PRN (21:14)
[2022-05-06] MEDS: DUONEB 0.5 MG/3 MG (3 mL) NEB SCH ×4 (00:25→17:28)
[2022-05-06] MEDS ORDERED: DUONEB 0.5 MG/3 MG (3 mL) NEB ONE (00:29)
[2022-05-06] MEDS: SOLU-Medrol 40 MG VIAL IVP SCH ×3 (05:13→21:21)
[2022-05-06 05:30] LABS: BASOPHILS % (AUTO) 0.2 % (0.2-1.0); HEMATOCRIT 23.4 % (36.0-47.0); HEMOGLOBIN 8.1 g/dL (12.0-16.0); LYMPHOCYTES # (AUTO) 0.8 X10^3/uL (1.3-2.9); LYMPHOCYTES % (AUTO) 8.5 % (21.0-51.0); MEAN CORPUSCULAR HEMOGLOBIN 28.1 pg (27.0-34.0); MEAN CORPUSCULAR HGB CONC 34.6 g/dL (33.0-35.0); MEAN CORPUSCULAR VOLUME 81.2 fL (80.0-100.0); MEAN PLATELET VOLUME 7.1 fL (7.4-11.0); MONOCYTES # (AUTO) 0.3 x10^3/uL (0.3-0.8); NEUTROPHILS # (AUTO) 8.6 x10^3/uL (2.2-4.8); NEUTROPHILS % (AUTO) 88.3 % (42.0-75.0); RED BLOOD COUNT 2.88 X10^6/uL (3.5-5.4); RED CELL DISTRIBUTION WIDTH 15.9 % (11.6-16.5); WHITE BLOOD COUNT 9.7 X10^3/uL (3.6-10.0)
[2022-05-06 05:52] LABS: ALBUMIN 2.1 g/dL (3.4-5.0); CALCIUM 7.9 mg/dL (8.5-10.1); CARBON DIOXIDE 25.5 mmol/L (21-32); COR CA(FOR HYPOALB) 9.4 mg/dL (8.5-10.1); CREATININE 1.39 mg/dL (0.55-1.02); TOTAL PROTEIN 6.9 g/dL (6.4-8.2)
[2022-05-06] MEDS: MUCOMYST 20% 200 MG/ML NEB SCH ×3 (06:30→21:00)
--- NOTE | 2022-05-06 07:39 | RAD ---
HISTORYHYPOXIA; SOBSTUDYCHEST, 1 [id number]/2022.TECHNIQUEAP view of the chestFINDINGSCardiac and mediastinal contours are within normal limits. Blunted left costophrenic sulcus. Left base subsegmental atelectasis. No pneumothorax. Background of COPD.IMPRESSIONSmall left pleural effusion with associated left base atelectasis. Background of COPD.Electronically signed by: Christoph Richter (May 06, 2022 07:38:16)
[2022-05-06] MEDS: NEURONTIN CAP 100 MG PO SCH ×3 (08:10→21:21)
[2022-05-06] MEDS: PULMICORT NEB TX 0.5 MG NEB SCH ×2 (08:58→21:00)
[2022-05-06] MEDS ORDERED: LEVAQUIN PREMIX IV 750 MG 750 MG/150 ML BAG IV SCH (09:00)
[2022-05-06] MEDS ORDERED: GLUCOPHAGE ONE ×2 (09:02→20:55)
[2022-05-06] MEDS: ASPIRIN EC 81 MG PO SCH (09:15)
[2022-05-06] MEDS: PriLOSEC PO SCH (09:15)
[2022-05-06] MEDS: GLUCOPHAGE PO SCH ×2 (09:15→21:24)
[2022-05-06] MEDS: LOVAZA PO SCH (09:15)
[2022-05-06] MEDS: MOBIC TAB 15 MG PO SCH ×2 (09:16→21:22)
[2022-05-06] MEDS: COLACE CAP 100 MG PO SCH (09:16)
[2022-05-06] MEDS: AMARYL TAB 4 MG PO SCH (09:16)
[2022-05-06] MEDS: TAB-A-VITE PO SCH (09:16)
[2022-05-06] MEDS: ZETIA TAB 10 MG PO SCH (09:17)
[2022-05-06] MEDS: VITAMIN D3 125 mcg (5,000 UNITS) PO SCH (09:17)
[2022-05-06] MEDS: COREG TAB 25 MG PO SCH ×2 (09:17→21:25)
[2022-05-06] MEDS: NovoLIN R (or HumuLIN R) SUBCUT PRN ×2 (11:34→21:41)
[2022-05-06] MEDS: NORVASC TAB 10 MG PO SCH (12:47)
[2022-05-06] MEDS: NS 1,000 ML IV 1,000 ML IV SCH (15:00)
[2022-05-06] MEDS ORDERED: MILK OF MAGNESIA ONE (16:59)
[2022-05-06] MEDS: MILK OF MAGNESIA PO PRN ×2 (17:00→17:09)
[2022-05-06] MEDS: SNACK - Diabetic Appropriate PO SCH (20:45)
[2022-05-06] MEDS ORDERED: ALLEGRA ONE (20:55)
[2022-05-06] MEDS: CRESTOR TAB 10 MG PO SCH (21:22)
[2022-05-06] MEDS: ZINC SULFATE PO SCH (21:23)
[2022-05-06] MEDS: ALLEGRA PO SCH (21:26)
[2022-05-07] MEDS ORDERED: SOLU-Medrol 40 MG VIAL IVP SCH (06:00)
[2022-05-07] MEDS: MUCOMYST 20% 200 MG/ML NEB SCH (06:10)
[2022-05-07] MEDS: DUONEB 0.5 MG/3 MG (3 mL) NEB SCH ×2 (06:10)
[2022-05-07 06:11] LABS: BASOPHILS % (AUTO) 0.1 % (0.2-1.0); HEMATOCRIT 22.3 % (36.0-47.0); HEMOGLOBIN 7.8 g/dL (12.0-16.0); LYMPHOCYTES # (AUTO) 0.6 X10^3/uL (1.3-2.9); LYMPHOCYTES % (AUTO) 6.2 % (21.0-51.0); MEAN CORPUSCULAR HEMOGLOBIN 28.4 pg (27.0-34.0); MEAN CORPUSCULAR HGB CONC 34.9 g/dL (33.0-35.0); MEAN CORPUSCULAR VOLUME 81.6 fL (80.0-100.0); MEAN PLATELET VOLUME 7.1 fL (7.4-11.0); MONOCYTES # (AUTO) 0.3 x10^3/uL (0.3-0.8); MONOCYTES % (AUTO) 3.4 % (0.0-13.0); NEUTROPHILS # (AUTO) 8.6 x10^3/uL (2.2-4.8); NEUTROPHILS % (AUTO) 90.3 % (42.0-75.0); RED BLOOD COUNT 2.73 X10^6/uL (3.5-5.4); RED CELL DISTRIBUTION WIDTH 15.9 % (11.6-16.5); WHITE BLOOD COUNT 9.5 X10^3/uL (3.6-10.0)
[2022-05-07 06:20] LABS: ALANINE AMINOTRANSFERASE 21 Units/L (12-78); ALKALINE PHOSPHATASE 55 Units/L (46-116); ASPARTATE AMINO TRANSFERASE 26 Units/L (15-37); BLOOD UREA NITROGEN 29 mg/dL (7-18); CALCIUM 7.6 mg/dL (8.5-10.1); CARBON DIOXIDE 27.1 mmol/L (21-32); CHLORIDE 101 mmol/L (98-107); COR CA(FOR HYPOALB) 9.2 mg/dL (8.5-10.1); COR NA(FOR HYPERGLY) 138 mmol/L (136-145); CREATININE 1.11 mg/dL (0.55-1.02); SODIUM 136 mmol/L (136-145); TOTAL PROTEIN 6.2 g/dL (6.4-8.2); eGFR NON BLACK RACES 51 (>60)
[2022-05-07 06:36] LABS: BAND NEUTROPHILS % 1 % (0-10)
[2022-05-07 06:37] LABS: PLATELET MORPHOLOGY COMMENT NORMAL (NORMAL); POIKILOCYTOSIS SLIGHT
[2022-05-07] MEDS ORDERED: POTASSIUM CHLORIDE LIQ 20 MEQ UDC PO PRN (06:40)
[2022-05-07] MEDS ORDERED: MICRO K EXTEN CAP 10 MEQ PO PRN (06:40)
[2022-05-07] MEDS ORDERED: KLOR-CON PO PRN (06:40)
[2022-05-07] MEDS ORDERED: POTASSIUM CHL 60 MEQ/NS 0.45% 500 ML IV PRN (06:40)
[2022-05-07] MEDS ORDERED: K-RIDER 10 MEQ/NS 100 ML 10 MEQ/100 ML BAG IV PRN (06:40)
[2022-05-07] MEDS ORDERED: POTASSIUM CHL 40 MEQ/NS 0.45% 500 ML IV PRN (06:40)
[2022-05-07] MEDS ORDERED: K-DUR TAB 20 MEQ PO PRN (06:40)
[2022-05-07] MEDS ORDERED: MAGNESIUM SULFATE 1 GRAM/100 mL PREMIX 1 G/100 ML BAG IV PRN (06:40)
[2022-05-07] MEDS ORDERED: GLUCOPHAGE ONE (07:59)
--- NOTE | 2022-05-07 08:13 | RAD ---
HISTORYSOB HX: CVA, HTN, MVP, COPD, DMSTUDYCHEST, 1 VIEWCOMPARISONChest radiograph dated May 06, 2022.FINDINGSThe trachea is midline. The cardiac silhouette is enlarged but stable. Diffuse interstitial disease is seen throughout the lung lilly, suggesting bronchitis/COPD. The lungs are clear without focal infiltrate or significant effusion. The bony thorax is unremarkable.IMPRESSIONStable chest without acute cardiopulmonary changes.Electronically signed by: JACOB YODER III (May 07, 2022 08:11:57)
[2022-05-07] MEDS: NEURONTIN CAP 100 MG PO SCH (08:19)
[2022-05-07] MEDS: AMARYL TAB 4 MG PO SCH (08:21)
[2022-05-07] MEDS: ASPIRIN EC 81 MG PO SCH (08:23)
[2022-05-07] MEDS: COLACE CAP 100 MG PO SCH (08:24)
[2022-05-07] MEDS: COREG TAB 25 MG PO SCH (08:24)
[2022-05-07] MEDS: GLUCOPHAGE PO SCH (08:25)
[2022-05-07] MEDS: MOBIC TAB 15 MG PO SCH (08:26)
[2022-05-07] MEDS: LOVAZA PO SCH (08:26)
[2022-05-07] MEDS: PriLOSEC PO SCH (08:27)
[2022-05-07] MEDS: TAB-A-VITE PO SCH (08:27)
[2022-05-07] MEDS: ZETIA TAB 10 MG PO SCH (08:28)
[2022-05-07] MEDS: VITAMIN D3 125 mcg (5,000 UNITS) PO SCH (08:28)
[2022-05-07] MEDS: MILK OF MAGNESIA PO PRN (08:31)
[2022-05-07] MEDS: PULMICORT NEB TX 0.5 MG NEB SCH (08:40)
[2022-05-07 10:32] VITALS: BP 158/68
== END 2022-05-07 11:15 | disposition home or self-care (01) | DRG 202 ==
LOC: ER 12:14 → ICU 12:14 → MED/SURG 05-06 13:56
PROVIDERS: ADMIT Internal Medicine; ATTEND Internal Medicine
DX: E87.1 Hypo-osmolality and hyponatremia; Z20.822 Contact with and (suspected) exposure to COVID-19; R53.1 Weakness; D50.8 Other iron deficiency anemias; Z99.81 Dependence on supplemental oxygen; J90 Pleural effusion, not elsewhere classified; R06.02 Shortness of breath; J98.09 Other diseases of bronchus, not elsewhere classified; I10 Essential (primary) hypertension; E11.65 Type 2 diabetes mellitus with hyperglycemia; J44.1 Chronic obstructive pulmonary disease with (acute) exacerbation